=== PATIENT | male | born 1955 | race American Indian/Alaskan Native ===

== ENCOUNTER 2018-01-15 08:06 | Inpatient (IN) | payer BC ==
--- NOTE | 2018-01-15 08:26 | ED PDOC ---
Arrival/HPI <Willie Mann - Last Filed: 01/15/18 15:10> - General Historian: Patient - History of Present Illness Time/Duration: < week (3 days) Symptom Onset: Gradual Symptom Course: Worsening Quality: Stabbing <Sree Newman - Last Filed: 01/15/18 15:25> - General Chief Complaint: Abdominal Pain Time Seen by Provider: 01/15/18 08:22 - History of Present Illness Narrative History of Present Illness (Text): 01/15/18 08:23 Patient is a 62 year old male with a past medical history of CAD (s/p quad CABG five years ago and stent x3 two years ago), hypertension and diabetes presenting to the emergency with a 3 days history of worsening abdominal pain. Patient is from [place] and just return from a cruise ship this morning. He started to experience RUQ/epigastric abdominal pain 3 days while on the cruise ship. The pain is described as a dull, intense pain - "hit in the stomach with a hammer." It does not radiate. He is not nauseous and has not vomited. He has not experienced any diarrhea or constipation, last BM yesterday. Denies fevers, chills, nausea, vomiting, chest pain, shortness of breath, numbness or tingling. PMH: CAD (s/p quad CABG five years ago and stent x3 two years ago), hypertension and diabetes (Sree Newman) Past Medical History - Provider Review Nursing Documentation Reviewed: Yes - Cardiac Hx Hypertension: Yes Other/Comment: bypass - Endocrine/Metabolic Hx Diabetes Mellitus Type 2: Yes - Psychiatric Hx Substance Use: No - Surgical History Other/Comment: bypass <Sree Newman - Last Filed: 01/15/18 15:25> Family/Social History - Physician Review Nursing Documentation Reviewed: Yes Family/Social History: Unknown Family HX Smoking Status: Never Smoked Hx Alcohol Use: No Hx Substance Use: No <Sree Newman - Last Filed: 01/15/18 15:25> Allergies/Home Meds <Willie Mann - Last Filed: 01/15/18 15:10> <Sree Newman - Last Filed: 01/15/18 15:25> Allergies/Adverse Reactions: Allergies No Known Allergies Allergy (Verified 01/15/18 08:22) Home Medications: Home Meds Medication Instructions Recorded Confirmed Unobtainable 01/15/18 01/15/18 Review of Systems - Physician Review All systems were reviewed & negative as marked: Yes - Review of Systems Constitutional: Normal. absent: Fatigue, Fevers Eyes: Normal. absent: Vision Changes ENT: Normal. absent: Sore Throat, Rhinorrhea Respiratory: Normal. absent: SOB, Cough Cardiovascular: Normal. absent: Chest Pain, Calf Pain, SMITH Gastrointestinal: Abdominal Pain (x3 days worsening), Appetite Changes ( decreased x3 days). absent: Stool Changes, Constipation, Diarrhea, Nausea, Vomiting Genitourinary Male: Normal. absent: Dysuria Musculoskeletal: Normal Skin: Normal. absent: Rash Neurological: Normal. absent: Headache, Dizziness Endocrine: Normal Hemo/Lymphatic: Normal Psychiatric: Normal. absent: Anxiety <Sree Newman - Last Filed: 01/15/18 15:25> Physical Exam Vital Signs Reviewed: Yes Temperature: Afebrile Blood Pressure: Hypertensive Pulse: Regular Respiratory Rate: Normal Appearance: Positive for: Non-Toxic, Uncomfortable Pain Distress: Moderate Mental Status: Positive for: Alert and Oriented X 3 - Systems Exam Head: Present: Atraumatic, Normocephalic Extroacular Muscles: Present: EOMI Conjunctiva: Present: Normal Mouth: Present: Dry Nose (External): Present: Atraumatic Nose (Internal): Present: No Active Bleeding Neck: Present: Normal Range of Motion Respiratory/Chest: Present: Clear to Auscultation, Good Air Exchange. No: Respiratory Distress, Accessory Muscle Use Cardiovascular: Present: Regular Rate and Rhythm, Normal S1, S2. No: Murmurs Abdomen: Present: Tenderness (RUQ>epigastric), Scars (sternotomy scar). No: Distention, Peritoneal Signs, Rebound, Guarding, McBurney's Point Tender, Rovsing's Sign Present Upper Extremity: Present: Normal Inspection, NORMAL PULSES. No: Cyanosis, Edema Lower Extremity: Present: Normal Inspection, NORMAL PULSES. No: Edema, CALF TENDERNESS Neurological: Present: GCS=15, Speech Normal, Motor Func Grossly Intact Skin: Present: Warm, Dry, Normal Color. No: Rashes Lymphatic: No: Cervical Adenopathy Psychiatric: Present: Alert, Oriented x 3, Normal Insight, Normal Concentration <Sree Newman - Last Filed: 01/15/18 15:25> Vital Signs Temp Pulse Resp BP Pulse Ox 01/15/18 12:59 95 H 207/95 H 01/15/18 12:51 93 H 18 207/95 H 100 01/15/18 12:01 97 H 221/98 H 01/15/18 11:57 99 H 18 221/98 H 100 01/15/18 11:16 95 H 226/98 H 01/15/18 11:07 81 18 226/96 H 98 01/15/18 08:16 98.9 F 90 19 194/87 H 100 Medical Decision Making <Willie Mann - Last Filed: 01/15/18 15:10> Re-evaluation Time: 10:39 Reassessment Condition: Re-examined, Unchanged - Lab Interpretations I have reviewed the lab results: Yes - RAD Interpretation As[employer] Shingle Roofer: Radiologist - EKG Interpretation Interpreted by ED Physician: Yes Type: 12 lead EKG Comparison: No previous EKG avail. <Sree Newman - Last Filed: 01/15/18 15:25> ED Course and Treatment: 01/15/18 10:18 62 year old male presents to the Emergency Department complaining of epigastric and RUQ abdominal pain. In agreement with resident note, which includes further HPI details. Patient was seen and evaluated with resident, came up with plan and treatment together. (Willie Mann) Patient is a 62 year old male with an extensive cardiac history (s/p quadruple bypass and 3 stents afterwards), hypertension and diabetes presenting with epigastric and RUQ abdominal pain x3 days Patient visibly in pain. Abdominal exam - RUQ tenderness>epigastric tenderness. No guarding, rebound or peritoneal signs. Labs, EKG and RUQ US (r/o GB pathology) Morphine 2mg given for pain. Patient is hypertensive, believed to be 2/2 to pain. Will re-check blood pressure once pain is controlled. 01/15/18 10:18 Patient is still in position, stating severe pain. No nausea or vomiting. US pending radiologist report. Leukocytosis 14.7 Lipase 81 CMP unremarkable. Patient still hypertensive. Need to control pain. Will give Morphine 4mg 01/15/18 10:31 Abd US shows increased echogenicity of liver may reflect hepatic steatosis but other etiologies can be excluded. NO cholelithiasis or biliary dilatation. Patient's pain has improved but is still a 4-5 out of 10. Will get abdominal/ pelvic CT w/IV contrast. Patient is more hypertensive at 214/107 - will give Hydralazine 10mg and re- assess 01/15/18 12:20 Patient is still experiencing severe abdominal pain. He is tachy at 102bpm and hypertensive at 221/98. Patient given Morphine 4mg IV for pain and Labetolol 20mg IV for hypertension. 01/15/18 13:14 Patient has been in consistent abdominal pain with morphine only providing minimal relief. CT results show fatty infiltration of liver and enlarged GB but is otherwise unremarkable. Will give Viscous Lidocaine and Maalox. Called and discussed case with Dr. Boucher. Dr. Boucher has accepted patient on to his service and will admit for hypertensive urgency and intractable abdominal pain. Dr. Boucher has requested consults for Dr. Borden (GI), Dr. Sosa (Cardio) and an ICU evaluation. Spoke with Dr. Sosa - requested Nitro drip Will admit patient to ICU for hypertensive urgency. (TrentSree) - Lab Interpretations Lab Results: 01/15/18 09:00 01/15/18 10:00 Lab Results 01/15/18 10:00: Sodium 144, Potassium 4.3, Chloride 107, Carbon Dioxide 26, Anion Gap 15, BUN 12, Creatinine 1.1, Est GFR ( Amer) > 60, Est GFR (Non- Af Amer) > 60, Random Glucose 217 H, Calcium 10.6 H, Magnesium 1.9, Total Bilirubin 0.7, AST 26, ALT 38, Alkaline Phosphatase 108, Troponin I 0.05, Total Protein 8.5 H, Albumin 4.4, Globulin 4.0, Albumin/Globulin Ratio 1.1, Lipase 81 01/15/18 09:00: WBC 14.7 H, RBC 5.44, Hgb 16.5, Hct 47.6, MCV 87.5, MCH 30.3, MCHC 34.7, RDW 13.6, Plt Count 324, MPV 12.7 H, Gran % 73.2 H, Lymph % (Auto) 16.6 L, [place] % (Auto) 9.8 H, Eos % (Auto) 0.2 L, Baso % (Auto) 0.2, Gran # 10.79 H, Lymph # (Auto) 2.5, [place] # (Auto) 1.4 H, Eos # (Auto) 0.0, Baso # (Auto ) 0.03 - RAD Interpretation Narrative RAD Interpretations (Text): 01/15/18 10:36 Abd US: Examination is technically limited due to patient body habitus. Mild hepatomegaly. Diffuse increased echogenicity in the liver may reflect hepatic steatosis however parenchymal infectious/ inflammatory etiologies cannot be entirely excluded. Clinical and laboratory correlation is advised. No cholelithiasis or biliary dilatation. Abd/pel CT w/o: Severe fatty infiltration of the liver. Distended gallbladder. Enlarged prostate and mild uniform mural thickening of the bladder (Sree Newman) Radiology Orders: 01/15/18 08:47 GALL BLADDER [US] Stat 01/15/18 10:30 ABD & PELVIS IV CONTRAST ONLY [CT] Stat - EKG Interpretation EKG Interpretation (Text): 01/15/18 10:40 EKG - NSR @94bpm, left axis deviation, left atrial enlargement, Q waves in V1 and V2, no acute ST segment elevations or depressions. (Sree Newman) - Medication Orders Current Medication Orders: Nitroglycerin/Dextrose (Nitroglycerin 50 Mg/250 Ml D5w) 50 mg in 250 mls @ 6 mls/hr IV .Q24H PRN; Protocol; 20 MCG/MIN PRN Reason: hypertension SBP>160 Last Admin: 01/15/18 14:49 Dose: 20 mcg/min, 6 mls/hr eMAR Start Stop Document 01/15/18 14:49 [facility] (Rec: 01/15/18 14:54 [facility] [id number]) Intravenous Solution Start Date 01/15/18 Start Time 14:50 MAR Pulse and Blood Pressure Document 01/15/18 14:49 [facility] (Rec: 01/15/18 14:54 [facility] [id number]) Pulse Pulse Rate (60-90) 113 Blood Pressure Blood Pressure (100/60-150/90) 156/87 Titration Intervention Document 01/15/18 14:49 [facility] (Rec: 01/15/18 14:54 [facility] [id number]) Titration Intake Waste Amount 0 Container Volume 250 Titration Dosing Titration Dose 20 IV Rate 6 Intake/Decrease Started Pantoprazole Sodium (Protonix 40mg Ivpb) 40 mg in 100 mls @ 200 mls/hr IVPB 0600 AUGUST Last Admin: 01/15/18 15:00 Dose: 200 mls/hr eMAR Start Stop Document 01/15/18 15:00 [facility] [place] (Rec: 01/15/18 15:01 [facility] [place] [id number]) Intravenous Solution Start Date 01/15/18 Start Time 15:00 End Date 01/15/18 End time 15:30 Total Infusion Time 30 Lactated Ringer's (Lactated Ringer's) 1,000 mls @ 150 mls/hr IV .Q6H40M AUGUST Discontinued Medications Al Hydrox/Mg Hydrox/Simethicone (Maalox Plus 30 Ml) 30 ml PO STAT STA Stop: 01/15/18 13:00 Last Admin: 01/15/18 13:55 Dose: 30 ml Hydralazine HCl (Apresoline) 10 mg IVP STAT ONE Stop: 01/15/18 10:46 Last Admin: 01/15/18 11:16 Dose: 10 mg IVP Administration Document 01/15/18 11:16 [facility] [place] (Rec: 01/15/18 11:[address]) Charges for Administration # of IVP Administrations 1 MAR Pulse and Blood Pressure Document 01/15/18 11:16 [facility] [place] (Rec: 01/15/18 11:17 [place] [id number]) Pulse Pulse Rate (60-90) 95 Blood Pressure Blood Pressure (100/60-150/90) 226/98 Hydralazine HCl (Apresoline) 10 mg IVP STAT ONE Stop: 01/15/18 13:01 Last Admin: 01/15/18 12:59 Dose: 10 mg IVP Administration Document 01/15/18 12:59 [facility] [place] (Rec: 01/15/18 12:[address]) Charges for Administration # of IVP Administrations 1 MAR Pulse and Blood Pressure Document 01/15/18 12:59 [facility] [place] (Rec: 01/15/18 12:59 [place] [id number]) Pulse Pulse Rate (60-90) 95 Blood Pressure Blood Pressure (100/60-150/90) 207/95 Labetalol HCl (Trandate) 20 mg IV STAT STA Stop: 01/15/18 11:58 Last Admin: 01/15/18 12:01 Dose: 20 mg eMAR Start Stop Document 01/15/18 12:01 [facility] (Rec: 01/15/18 12:02 [facility] [id number]) Intravenous Solution Start Date 01/15/18 Start Time 12:02 End Date 01/15/18 End time 12:05 Total Infusion Time 3 MAR Pulse and Blood Pressure Document 01/15/18 12:01 [facility] (Rec: 01/15/18 12:02 [facility] [id number]) Pulse Pulse Rate (60-90) 97 Blood Pressure Blood Pressure (100/60-150/90) 221/98 Morphine Sulfate (Morphine) 2 mg IVP STAT STA Stop: 01/15/18 08:52 Last Admin: 01/15/18 09:08 Dose: 2 mg MAR Pain Assessment Document 01/15/18 09:08 [facility] (Rec: 01/15/18 09:09 [facility] [id number]) Pain Reassessment Is this a pain reassessment? No Sleep Is patient sleeping during reassessment? No Presence of Pain Presence of Pain Yes Pain Scale Used Pain Scale Used Numeric Location Pain Location Body Site Groin Description Description Constant Intensity of Pain at present 8 IVP Administration Document 01/15/18 09:08 [facility] (Rec: 01/15/18 09:09 [facility] [id number]) Charges for Administration # of IVP Administrations 1 Morphine Sulfate (Morphine) 4 mg IVP STAT STA Stop: 01/15/18 10:05 Last Admin: 01/15/18 10:16 Dose: 4 mg MAR Pain Assessment Document 01/15/18 10:16 [facility] (Rec: 01/15/18 10:17 [facility] [id number]) Pain Reassessment Is this a pain reassessment? No Sleep Is patient sleeping during reassessment? No Presence of Pain Presence of Pain Yes Pain Scale Used Pain Scale Used Numeric Location Pain Location Body Site Abdomen Description Intensity of Pain at present 8 IVP Administration Document 01/15/18 10:16 [facility] (Rec: 01/15/18 10:17 [facility] [id number]) Charges for Administration # of IVP Administrations 1 Morphine Sulfate (Morphine) 4 mg IVP STAT STA Stop: 01/15/18 11:59 Last Admin: 01/15/18 12:05 Dose: 4 mg MAR Pain Assessment Document 01/15/18 12:05 [facility] (Rec: 01/15/18 12:06 [facility] [id number]) Pain Reassessment Is this a pain reassessment? Yes Sleep Is patient sleeping during reassessment? No Presence of Pain Presence of Pain Yes Pain Scale Used Pain Scale Used Numeric Location Pain Location Body Site Abdomen Description Description Constant Intensity of Pain at present 8 IVP Administration Document 01/15/18 12:05 [facility] (Rec: 01/15/18 12:[address] [facility] [address]) Charges for Administration # of IVP Administrations 1 Morphine Sulfate (Morphine) 4 mg IVP STAT STA Stop: 01/15/18 13:59 Last Admin: 01/15/18 14:55 Dose: 4 mg MAR Pain Assessment Document 01/15/18 14:55 [facility] (Rec: 01/15/18 14:[address]) Pain Reassessment Is this a pain reassessment? Yes Sleep Is patient sleeping during reassessment? No Presence of Pain Presence of Pain Yes Pain Scale Used Pain Scale Used Numeric Location Pain Location Body Site Abdomen Description Intensity of Pain at present 8 Acceptable Level of Pain 1 IVP Administration Document 01/15/18 14:55 [facility] (Rec: 01/15/18 14:[address] [facility] [address]) Charges for Administration # of IVP Administrations 1 Nitroglycerin (Nitrostat Sl Tab) 0.4 mg SL STAT STA Stop: 01/15/18 14:35 Last Admin: 01/15/18 14:46 Dose: 0.4 mg Pantoprazole Sodium (Protonix Inj) 80 mg IVP STAT STA Stop: 01/15/18 14:33 Last Admin: 01/15/18 14:46 Dose: 80 mg IVP Administration Document 01/15/18 14:46 J[facility] (Rec: 01/15/18 14:46 JRA [id number]) Charges for Administration # of IVP Administrations 1 - PA / CELLAR PACKER / Resident Statement MD/DO has reviewed & agrees with the documentation as recorded. MD/DO has examined the patient and agrees with the treatment plan. - Scribe Statement The provider has reviewed the documentation as recorded by the Scribe <Willie Mann - Last Filed: 01/15/18 15:10> <Sree Newman - Last Filed: 01/15/18 15:25> - Scribe Statement Joey Barkley. All medical record entries made by the Scribe were at my direction and personally dictated by me. I have reviewed the chart and agree that the record accurately reflects my personal performance of the history, physical exam, medical decision making, and the department course for this patient. I have also personally directed, reviewed, and agree with the discharge instructions and disposition. (Willie Mann) Disposition/Present on Arrival <Willie Mann - Last Filed: 01/15/18 15:10> - Present on Arrival Any Indicators Present on Arrival: No History of DVT/PE: No History of Uncontrolled Diabetes: No Urinary Catheter: No History of Decub. Ulcer: No History Surgical Site Infection Following: None - Disposition Have Diagnosis and Disposition been Completed?: Yes Disposition Time: 13:37 Patient Plan: Admission, ICU <Sree Newman - Last Filed: 01/15/18 15:25> - Disposition Diagnosis: Hypertensive urgency, Intractable abdominal pain Disposition: HOSPITALIZED Patient Problems: Current Active Problems Problem Status Onset Hypertensive urgency Acute Intractable abdominal pain Acute Condition: SERIOUS
[2018-01-15] MEDS ORDERED: Morphine 2 mg/ml ISec IVP STA (08:51)
[2018-01-15 09:26] LABS: BASO # 0.03 K/mm3 (0.0-2.0); BASO % 0.2 % (0.0-3.0); EOS % 0.2 % (1.5-5.0); GRAN # 10.79 (1.4-6.5); GRAN % 73.2 % (50.0-68.0); HEMOGLOBIN 16.5 g/dL (14.0-18.0); LYMPH # 2.5 (1.2-3.4); LYMPH % 16.6 % (22.0-35.0); MEAN CELL VOLUME 87.5 fl (80.0-105.0); MEAN CORPUSCULAR HEMOGLOBIN 30.3 pg (25.0-35.0); MEAN CORPUSCULAR HGB CONC 34.7 g/dl (31.0-37.0); MEAN PLATELET VOLUME 12.7 fl (7.0-11.0); MONO # 1.4 (0.1-0.6); MONO % 9.8 % (1.0-6.0); RBC 5.44 10^6/uL (3.5-6.1); RED CELL DISTRIBUTION WIDTH 13.6 % (11.5-14.5); WHITE BLOOD COUNT 14.7 10^3/ul (4.5-11.0)
[2018-01-15] MEDS ORDERED: Morphine 4 mg/ml ISec IVP STA ×3 (10:04→13:58)
--- NOTE | 2018-01-15 10:10 | US ---
Date of service: 01/15/2018 HISTORY: RUQ pain COMPARISON: None. TECHNIQUE: Grayscale imaging was performed. FINDINGS: LIVER: Measures 22.9 cm in length. There is diffuse increased echogenicity of the liver parenchyma. No mass. No intrahepatic bile duct dilatation. GALLBLADDER: There are no gallstones, wall thickening or pericholecystic fluid. The sonographic Guardado's sign is negative. COMMON BILE DUCT: Measures 4.7 mm. No stones. No dilatation. PANCREAS: Not visualized. No mass. No ductal dilatation. RIGHT KIDNEY: Measures 13.0 cm in length. Normal echogenicity. No calculus, mass, or hydronephrosis. AORTA: No aneurysmal dilatation. IVC: Unremarkable. OTHER FINDINGS: None . IMPRESSION: Examination is technically limited due to patient body habitus. Mild hepatomegaly. Diffuse increased echogenicity in the liver may reflect hepatic steatosis however parenchymal infectious/ inflammatory etiologies cannot be entirely excluded. Clinical and laboratory correlation is advised. No cholelithiasis or biliary dilatation.
[2018-01-15 10:27] LABS: ALB/GLOB RATIO 1.1 (1.1-1.8); ALBUMIN 4.4 g/dL (3.0-4.8); ALT/SGPT 38 U/L (7-56); AST/SGOT 26 U/L (17-59); BLOOD UREA NITROGEN 12 mg/dL (7-21); CALCIUM 10.6 mg/dL (8.4-10.5); GFR NON-AFRICAN AMERICAN > 60; LIPASE 81 U/L (23-300)
[2018-01-15 10:39] LABS: TROPONIN I 0.05 ng/mL
[2018-01-15] MEDS ORDERED: Labetalol 5 mg/ml Inj 20ML IV STA (11:57)
--- NOTE | 2018-01-15 12:32 | CT ---
Date of service: 01/15/2018 PROCEDURE: CT Abdomen and Pelvis with contrast HISTORY: RUQ/Epigastric pain COMPARISON: None. TECHNIQUE: Contrast dose: 150 cc of Omni 350 Radiation dose: Total exam DLP = 1144 mGy-cm. This CT exam was performed using one or more of the following dose reduction techniques: Automated exposure control, adjustment of the mA and/or kV according to patient size, and/or use of iterative reconstruction technique. FINDINGS: LOWER THORAX: Unremarkable. LIVER: Severe fatty infiltration of the liver GALLBLADDER AND BILE DUCTS: Distended gallbladder PANCREAS: Unremarkable. No gross lesion or ductal dilatation. SPLEEN: Unremarkable. ADRENALS: Unremarkable. No mass. KIDNEYS AND URETERS: Unremarkable. No hydronephrosis. No solid mass. VASCULATURE: Unremarkable. No aortic aneurysm. BOWEL: Unremarkable. No obstruction. No gross mural thickening. APPENDIX: Normal appendix. PERITONEUM: Unremarkable. No free fluid. No free air. LYMPH NODES: Unremarkable. No enlarged lymph nodes. BLADDER: Mild mural thickening of the bladder REPRODUCTIVE: The prostate measures 65 x 76 mm BONES: No acute fracture. OTHER FINDINGS: None. IMPRESSION: Severe fatty infiltration of the liver. Distended gallbladder. Enlarged prostate and mild uniform mural thickening of the bladder
[2018-01-15] MEDS ORDERED: Alum-Mag Hydrox-Simethicone Susp (30 mL) PO STA (12:59)
[2018-01-15] MEDS ORDERED: Pantoprazole 40mg/100mL NS 40 MG/100 ML BAG IVPB SCH (14:45)
--- NOTE | 2018-01-15 14:46 | CP.PCM.CON ---
History of Present Illness - History of Present Illness History of Present Illness: 62 M with extensive cardiac hx including CAD (s/p quad CABG five years ago and stent x3 two years ago), hypertension and diabetes presenting to the ED with abdominal pain x 3 days. He just came off a cruise ship that went [facility] indulged in food from the cruise ship including meat and seafood. Also consumed alcohol which he usually does not. Three day ago he began to have spastic RUQ pain. This got worse on the second day of pain to the point where he had to stay with the cruise ship medical team and receive pain meds which did not help. Today, the pain is worse. No fevers, no n/v, no diarrhea. He believes pain is worse with food but is not sure. Last BM yesterday. + flatus. In the ED, he was afebrile however hypertensive 210/205 HR 88 99% RA RR 16. Labs were unremarkable except for a leukocytosis of 14. LFts and Pancr enzymes also normal. normal bili. CTA abd did not show ischemic bowel or clot. GB US did not show stones in GB. CT did comment on enlarged GB. PMHX: As above Psurg hx: CABG Allx: NKDA Social: Minimal etoh, no smoking. Lives in [place] Fam Hx: HTN ROS: as above Past Patient History - Past Social History Smoking Status: Never Smoked - CARDIAC Hx Hypertension: Yes Other/Comment: bypass - ENDOCRINE/METABOLIC Hx Diabetes Mellitus Type 2: Yes - PSYCHIATRIC Hx Substance Use: No - SURGICAL HISTORY Other/Comment: bypass Meds Allergies/Adverse Reactions: Allergies Allergy/AdvReac Type Severity Reaction Status Date / Time No Known Allergies Allergy Verified 01/15/18 08:22 - Medications Medications: Current Medications Nitroglycerin/Dextrose (Nitroglycerin 50 Mg/250 Ml D5w) 50 mg in 250 mls @ 6 mls/hr IV .Q24H PRN; Protocol; 20 MCG/MIN PRN Reason: hypertension SBP>160 Pantoprazole Sodium (Protonix 40mg Ivpb) 40 mg in 100 mls @ 200 mls/hr IVPB 0600 AUGUST Physical Exam - Constitutional Appears: In Acute Distress - Head Exam Head Exam: ATRAUMATIC, NORMAL INSPECTION - Eye Exam Eye Exam: EOMI Pupil Exam: NORMAL ACCOMODATION, PERRL - ENT Exam ENT Exam: Mucous Membranes Moist, Normal Exam - Neck Exam Neck exam: Positive for: Normal Inspection - Respiratory Exam Respiratory Exam: Clear to Auscultation Bilateral, NORMAL BREATHING PATTERN - Cardiovascular Exam Cardiovascular Exam: REGULAR RHYTHM - GI/Abdominal Exam GI & Abdominal Exam: Distended, Firm, Normal Bowel Sounds, Tenderness - Extremities Exam Extremities exam: Positive for: normal inspection - Neurological Exam Neurological exam: Alert, CN II-XII Intact, Oriented x3 - Skin Skin Exam: Normal Color, Warm Results - Vital Signs Recent Vital Signs: Last Vital Signs Temp 98.9 F 01/15/18 08:16 Pulse 95 H 01/15/18 12:59 Resp 18 01/15/18 12:51 BP 207/95 H 01/15/18 12:59 Pulse Ox 100 01/15/18 12:51 - Labs Result Diagrams: 01/15/18 09:00 01/15/18 10:00 Assessment & Plan - Assessment and Plan (Free Text) Assessment: 62M with extensive cardiac hx including CAD/CABG and HTN admitted with 3 days of abd pain while on a cruise ship as well as uncontrolled HTN. Etio of abd pain unclear. His pain is suggestive of biliary colic. Imaging does not show stones in GB but does show dilated GB. LFTs, bili and pancr emzymes are normal as well. PUD is possible. GI on board for evaluation. May benefit from HIDA / MRCP / endoscopy. He is not febrile and does not show signs of sepsis. No n/v/diarrhea. Would hold off on abx. I have ordered lactic acid. His BP is very high, he did not take his antihypertensive today. He does not show any signs of end organ damage. Would resume him home PO meds ( is getting list). Cardio on board requesting tridil drip which will require him be monitored in the ICU. HTN mmt as per cardio. Will order tni. Hep SQ DVT ppx PPI GI tx empiric for possible ulcer pain hold any NSAID NPO while awaiting GI Bilal Tiffanie HERMOSILLO Accounts Receivable Supervisor
[2018-01-15] MEDS: Nitroglycerin 50mg in D5W 50 MG/250 ML BOTTLE IV PRN (14:49)
[2018-01-15] MEDS ORDERED: Lactated Ringer's 1,000 ML IV SCH (15:15)
--- NOTE | 2018-01-15 15:33 | CP.PCM.CON ---
<Randy Chan - Last Filed: 01/15/18 15:57> History of Present Illness - History of Present Illness History of Present Illness: GI Fellow PGY4, consult note. Yoshi Devine is a pleasant 62M with history of CABG, gout, HTN, DM, colon cancer presenting with acute abdominal pain. Patient describes pain as progressively worsening for three days. Now, pain is severe, constant and located in the RUQ abdomen. He says food makes the pain worse. It does not radiate. Patient denies history of gallstones, stomach ulcers. He states he has been taking his medication as Rx. He does not take an antacid at home. He has not been using NSAIDs recently. PMHx - Colon CA 5 years ago. PSHx - Colon resection with anastamosis, CABG FMHx - noncontributory. SocHx - Occasional EtOH. denies smoking. recently on a cruise. lives in [place]. 12pt ROS negative except for above. Past Patient History - Past Social History Smoking Status: Never Smoked - CARDIAC Hx Hypertension: Yes Other/Comment: bypass - ENDOCRINE/METABOLIC Hx Diabetes Mellitus Type 2: Yes - PSYCHIATRIC Hx Substance Use: No - SURGICAL HISTORY Other/Comment: bypass Meds Allergies/Adverse Reactions: Allergies Allergy/AdvReac Type Severity Reaction Status Date / Time lidocaine AdvReac COUGH Verified 01/15/18 18:13 - Medications Medications: Current Medications Nitroglycerin/Dextrose (Nitroglycerin 50 Mg/250 Ml D5w) 50 mg in 250 mls @ 6 mls/hr IV .Q24H PRN; Protocol; 20 MCG/MIN PRN Reason: hypertension SBP>160 Last Admin: 01/15/18 14:49 Dose: 20 mcg/min, 6 mls/hr Pantoprazole Sodium (Protonix 40mg Ivpb) 40 mg in 100 mls @ 200 mls/hr IVPB 0600 AUGUST Last Admin: 01/15/18 15:00 Dose: 200 mls/hr Lactated Ringer's (Lactated Ringer's) 1,000 mls @ 150 mls/hr IV .Q6H40M [facility] Physical Exam - Constitutional Appears: In Acute Distress - Head Exam Head Exam: NORMAL INSPECTION - Eye Exam Eye Exam: Normal appearance - ENT Exam ENT Exam: Mucous Membranes Dry - Respiratory Exam Respiratory Exam: Clear to Auscultation Bilateral, NORMAL BREATHING PATTERN - Cardiovascular Exam Cardiovascular Exam: REGULAR RHYTHM, +S1, +S2 - GI/Abdominal Exam GI & Abdominal Exam: Normal Bowel Sounds, Organomegaly, Soft, Tenderness Additional comments: RUQ tenderness. [place] sign indeterminate. - Rectal Exam Rectal Exam: Deferred - Extremities Exam Extremities exam: Positive for: normal inspection - Neurological Exam Neurological exam: Alert, CN II-XII Intact, Oriented x3 - Psychiatric Exam Psychiatric exam: Normal Affect, Normal Mood - Skin Skin Exam: Dry, Normal Color Results - Vital Signs Recent Vital Signs: Last Vital Signs Temp 98.9 F 01/15/18 08:16 Pulse 95 H 01/15/18 12:59 Resp 18 01/15/18 12:51 BP 207/95 H 01/15/18 12:59 Pulse Ox 100 01/15/18 12:51 - Labs Result Diagrams: 01/15/18 09:00 01/15/18 10:00 Labs: Laboratory Results - last 24 hr 01/15/18 01/15/18 15:07 15:07 Lactic Acid 2.4 H Amylase 94 Assessment & Plan - Assessment and Plan (Free Text) Assessment: 62M presenting with acute abdominal pain consistent with cholecystitis #RUQ abdominal pain #CAD s/p CABG #HTN urgency #DM #Gout #Hx of Colon CA PLAN: -Concerning for acute cholecystitis. CT scan show fat stranding around the GB. No obvious stone, but these can be missed on imaging. If this is acalculous cholecystitis, this is a worse prognosis. -Recommend stat surgical evaluation. -Continue PPI drip for now. -Agree with ICU placement. -Supportive care per medicine/ICU team. Monitor IV fluids carefully and volume overload in cardiac patient. -No endoscopic procedures planned. - Date & Time Date: 01/15/18 Time: 15:36 <Marina Eckert - Last Filed: 01/15/18 19:06> Meds - Medications Medications: Current Medications Hydromorphone HCl (Dilaudid) 1 mg IVP Q4H PRN PRN Reason: Pain, severe (8-10) Last Admin: 01/15/18 18:10 Dose: 1 mg Hydromorphone HCl (Dilaudid) 0.5 mg IVP Q3H PRN PRN Reason: Pain, moderate (4-7) Nitroglycerin/Dextrose (Nitroglycerin 50 Mg/250 Ml D5w) 50 mg in 250 mls @ 6 mls/hr IV .Q24H PRN; Protocol; 20 MCG/MIN PRN Reason: hypertension SBP>160 Last Titration: 01/15/18 18:41 Dose: 10 mcg/min, 3 mls/hr Pantoprazole Sodium (Protonix 40mg Ivpb) 40 mg in 100 mls @ 200 mls/hr IVPB 0600 [facility] Last Admin: 01/15/18 15:00 Dose: 200 mls/hr Lactated Ringer's (Lactated Ringer's) 1,000 mls @ 150 mls/hr IV .Q6H40M [facility] Last Admin: 01/15/18 15:38 Dose: 150 mls/hr Metronidazole (Flagyl) 500 mg in 100 mls @ 100 mls/hr IVPB Q8 AUGUST PRN Reason: Protocol Last Admin: 01/15/18 18:06 Dose: 100 mls/hr Levofloxacin/Dextrose (Levaquin 500mg) 500 mg in 100 mls @ 100 mls/hr IVPB DAILY AUGUST PRN Reason: Protocol Last Admin: 01/15/18 18:43 Dose: 100 mls/hr Insulin Human Regular (Humulin R Low) 0 units SC Q6 AUGUST PRN Reason: Protocol Results - Vital Signs Recent Vital Signs: Last Vital Signs Temp 98.9 F 01/15/18 18:14 Pulse 117 H 01/15/18 18:14 Resp 18 01/15/18 18:14 BP 185/111 H 01/15/18 18:14 Pulse Ox 98 01/15/18 16:37 - Labs Result Diagrams: 01/15/18 09:00 01/15/18 10:00 Labs: Laboratory Results - last 24 hr 01/15/18 01/15/18 01/15/18 15:07 15:07 17:24 POC Glucose (mg/dL) 193 H Lactic Acid 2.4 H Troponin I 0.06 Amylase 94 Attending/Attestation - Attestation I have personally seen and examined this patient.: Yes I have fully participated in the care of the patient.: Yes I have reviewed all pertinent clinical information: Yes Notes (Text): 01/15/18 18:59 Patient seen earlier on Gi rounds. This is a 62 yr old M with histor of CAD, CABG, cardiac stents, colon CA, presenting with acute RUQ abdominal pain that worsened after eating fatty foods in past 4 days with nausea and mild leukocytosis. Ct reviewed that shows thickened GB with fat stranding. 30% of the times stones can be missed on CT scan. Can also be acalculous cholecystitis. Also with HTN urgency on nitro drip. Surgical plan to be followed as there is no GI issue. NPO. Agree with antibiotics. Can give PPI daily. Discussed with surgical service and Dr Boucher 01/15/18 19:06
[2018-01-15 15:37] LABS: TROPONIN I 0.06 ng/mL
--- NOTE | 2018-01-15 15:47 | CON ---
Copied To: Jamil Sosa MD Attending MD: Jamil Sosa MD DATE: 01/15/2018 CARDIOLOGY CONSULTATION HISTORY: The patient is a 62-year-old male who came off the cruise ship with 3 days of abdominal pain. His symptoms are described as crampy and has been consistent and severe. PAST MEDICAL HISTORY: Includes a history of hypertension, diabetes mellitus, hypercholesterolemia, obesity, and is status post coronary artery bypass surgery 5 years ago as well as PTCA and stent 2 years ago. He states he has had no angina. His symptoms are not like his anginal symptoms. The patient's past medical history is free of history of peptic ulcer disease. SOCIAL HISTORY: The patient does not smoke. 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 REVIEW OF SYSTEMS: A 14-point review of systems is reviewed in detail. Other than the above symptoms, no other symptoms are noted. PHYSICAL EXAMINATION: VITAL SIGNS: Blood pressure is 237/98, heart rates in the 90s. NECK: Negative JVD. LUNGS: Without rales. HEART: S1, S2. ABDOMEN: Minimal bowel sounds are heard with mild guarding. EXTREMITIES: Without edema. LABORATORY DATA: Shows an EKG with left anterior hemiblock with no acute changes. The troponin is 0.05. Glucose 217. Hemoglobin is 16.5 with white count of 14.7. CT scan of the abdomen reveals no obstruction reported. Ultrasound of the gallbladder reveals no cholelithiasis, no biliary dilatation. IMPRESSION: 1. Three days of abdominal pain. 2. CT scan and gallbladder ultrasound are unrevealing. 3. Accelerated hypertension. 4. Diabetes mellitus. 5. Hypertension. 6. History of coronary artery bypass surgery. 7. History of percutaneous transluminal coronary angioplasty in the past. 8. Obesity. Given these findings, we will start the patient on IV . Sublingual nitroglycerin was given. A trial of IV Protonix. GI will need to be called. The patient should go to the ICU for better blood pressure control. We will need to consider whether the patient needs surgical evaluation. Jamil Sosa MD
--- NOTE | 2018-01-15 15:56 | CP.PCM.CON ---
History of Present Illness - History of Present Illness History of Present Illness: General Surgery consult note for Dr. Luis CC: abdominal pain Patient seen and examined at bedside in the ER. Patient is a 62M with PMH including colon CA, DM, CAD s/p stents and CABG currently on brilinta, HTN, who presented to the ED with 2 days of worsening abdominal pain. patient states his pain is diffuse, waxes and wanes but never disappears, is stabbing in nature, and associated with nausea today. Patient states that his last BM was yesterday and it was small but normal color and consistency. Patient has been on a cruiseship eating a large amount of fatty foods and was drinking a large amount of rum on night the symptoms started. Patient denies any prior episodes of similar symptoms. Patient denies vomiting, hematochezia, melena, fevers, chills , back pain, chest pain, dysuria, hematuria, or any other symptoms. PMH: colon ca, CAD on brilinta, HTN, HLD, DM PSH: laparoscopic colon resection, CABG, coronary stents, knee arthroscopy ALL: lidocaine (hiccups) Social: occasional ETOH, non-smoker, no illicit drugs Review of Systems - Review of Systems All systems: reviewed and no additional remarkable complaints except (as per HPI ) Past Patient History - Past Medical History & Family History Past Medical History?: Yes - Past Social History Smoking Status: Never Smoked Alcohol: None Drugs: Denies - CARDIAC Hx Cardiac Disorders: Yes Hx Hypertension: Yes Other/Comment: CAD s/p quadruple CABG, subsequent coronary stents - ENDOCRINE/METABOLIC Hx Diabetes Mellitus Type 2: Yes - GASTROINTESTINAL Hx Gastrointestinal Disorders: Yes (colon cancer 2015 s/p resection) - PSYCHIATRIC Hx Substance Use: No - SURGICAL HISTORY Hx Coronary Artery Bypass Graft: Yes Hx Orthopedic Surgery: Yes (knee arthrosctopy) Other/Comment: coronary stents, partial colon resection Meds Allergies/Adverse Reactions: Allergies Allergy/AdvReac Type Severity Reaction Status Date / Time lidocaine AdvReac COUGH Verified 01/15/18 16:39 - Medications Medications: Current Medications Nitroglycerin/Dextrose (Nitroglycerin 50 Mg/250 Ml D5w) 50 mg in 250 mls @ 6 mls/hr IV .Q24H PRN; Protocol; 20 MCG/MIN PRN Reason: hypertension SBP>160 Last Admin: 01/15/18 14:49 Dose: 20 mcg/min, 6 mls/hr Pantoprazole Sodium (Protonix 40mg Ivpb) 40 mg in 100 mls @ 200 mls/hr IVPB 0600 [facility] Last Admin: 01/15/18 15:00 Dose: 200 mls/hr Lactated Ringer's (Lactated Ringer's) 1,000 mls @ 150 mls/hr IV .Q6H40M [facility] Last Admin: 01/15/18 15:38 Dose: 150 mls/hr Physical Exam - Constitutional Appears: Well, Non-toxic - Head Exam Head Exam: ATRAUMATIC, NORMOCEPHALIC - Eye Exam Eye Exam: Normal appearance. absent: Conjunctival injection, Scleral icterus - ENT Exam ENT Exam: Mucous Membranes Moist, Normal Oropharynx - Respiratory Exam Respiratory Exam: NORMAL BREATHING PATTERN. absent: Accessory Muscle Use, Respiratory Distress - Cardiovascular Exam Cardiovascular Exam: Tachycardia, REGULAR RHYTHM - GI/Abdominal Exam GI & Abdominal Exam: Soft, Tenderness (moderate diffuse tenderness, severe tenderness in RUQ/epigastrium with positive gupta's sign). absent: Distended, Rigid - Extremities Exam Extremities exam: Positive for: pedal pulses present. Negative for: calf tenderness, pedal edema - Neurological Exam Neurological exam: Alert, Oriented x3 - Psychiatric Exam Psychiatric exam: Anxious, Normal Affect - Skin Skin Exam: Dry, Normal Color, Warm Results - Vital Signs Recent Vital Signs: Last Vital Signs Temp 98.9 F 01/15/18 08:16 Pulse 112 H 01/15/18 14:30 Resp 18 01/15/18 14:30 BP 156/87 H 01/15/18 14:30 Pulse Ox 98 01/15/18 14:30 - Labs Result Diagrams: 01/15/18 09:00 01/15/18 10:00 Labs: Laboratory Results - last 24 hr 01/15/18 01/15/18 15:07 15:07 Lactic Acid 2.4 H Troponin I 0.06 Amylase 94 - Imaging and Cardiology CT scan - abdomen Status: Image reviewed by me, Report reviewed by me US - abdomen Status: Image reviewed by me, Report reviewed by me Assessment & Plan - Assessment and Plan (Free Text) Assessment: 62M with abdominal pain, possible acalculous cholecystitis Plan: Continue to trend CBC/CMP F/U GI recs F/U cardiology recs Serial exams NPO IVF IV antibiotics PRN pain medication Patient is currently on nitro drip in the ICU for severe hypertension--patient must have his cardiac state stabilized prior to any surgical intervention If patient clinically deteriorates or fails to improve, may consider IR percutaneous drainage of the gallbladder with a cholecystostomy tube Discussed with Dr. Luis, further recs per him Shyann Willoughby, PGY2
[2018-01-15] MEDS: metroNIDAZOLE IV 500 mg/100 ml 500 MG/100 ML BAG IVPB SCH ×2 (18:06→23:00)
[2018-01-15] MEDS: HYDROmorphone 1 mg/ml ISec IVP PRN (18:10)
[2018-01-15] MEDS: levoFLOXacin 500 mg in D5W 500 MG/100 ML BAG IVPB SCH (18:43)
[2018-01-15 18:48] VITALS: BMI 37.3
[2018-01-15] MEDS ORDERED: Pneumococcal 23-Valent Vaccine IM ONE (18:49)
--- NOTE | 2018-01-15 21:24 | CARD ---
APPROVED REPORT Date of service: 01/15/2018 EKG Measurement Heart [id number] <Conclusion> Normal sinus rhythm Possible Left atrial enlargement Left axis deviation Left ventricular hypertrophy Cannot rule out Septal infarct, age undetermined Abnormal ECG
[2018-01-15] MEDS ORDERED: Insulin Reg-LOW-Coverage SC SCH (22:00)
[2018-01-15] MEDS: HYDROmorphone 0.5 mg/0.5 ml ISec IVP PRN (23:18)
[2018-01-16] MEDS: HYDROmorphone 0.5 mg/0.5 ml ISec IVP PRN ×3 (04:17→18:44)
[2018-01-16 06:26] LABS: INR 1.31; PROTHROMBIN TIME 15.2 SECONDS (9.4-12.5)
[2018-01-16 06:27] LABS: BASO # 0.03 K/mm3 (0.0-2.0); BASO % 0.1 % (0.0-3.0); GRAN # 19.61 (1.4-6.5); GRAN % 79.4 % (50.0-68.0); HEMOGLOBIN 15.2 g/dL (14.0-18.0); LYMPH # 1.9 (1.2-3.4); LYMPH % 7.7 % (22.0-35.0); MEAN CELL VOLUME 89.1 fl (80.0-105.0); MEAN CORPUSCULAR HEMOGLOBIN 29.7 pg (25.0-35.0); MEAN CORPUSCULAR HGB CONC 33.3 g/dl (31.0-37.0); MEAN PLATELET VOLUME 12.7 fl (7.0-11.0); MONO # 3.2 (0.1-0.6); MONO % 12.8 % (1.0-6.0); RBC 5.12 10^6/uL (3.5-6.1); RED CELL DISTRIBUTION WIDTH 14.1 % (11.5-14.5); WHITE BLOOD COUNT 24.7 10^3/ul (4.5-11.0)
[2018-01-16] MEDS ORDERED: Lidocaine PF 2% (5 ml) Inj (For Cardiac Arrhy) ONE (07:10)
[2018-01-16] MEDS ORDERED: Phenylephrine 10 mg/ml Inj ONE (07:10)
[2018-01-16] MEDS ORDERED: Iohexol 350mgl/ml 50 ML ONE (07:11)
[2018-01-16] MEDS ORDERED: Nitroglycerin 50mg in D5W 0 MG/0 ML BOTTLE IV ONE (07:11)
[2018-01-16] MEDS ORDERED: Iodixanol 320 MG/ML 200 ML BOTTLE IV ONE (07:11)
[2018-01-16] MEDS ORDERED: Iodixanol 320 MG/ML 100 ML BOTTLE IV ONE (07:11)
[2018-01-16 07:14] LABS: ALB/GLOB RATIO 1.1 (1.1-1.8); ALT/SGPT 28 U/L (7-56); AST/SGOT 25 U/L (17-59); BLOOD UREA NITROGEN 16 mg/dL (7-21); GFR NON-AFRICAN AMERICAN 51
[2018-01-16] MEDS ORDERED: Alum-Mag Hydrox-Simethicone Susp (30 mL) PO ONE (07:36)
[2018-01-16] MEDS ORDERED: Midazolam 2 MG/2 ML VIAL ONE ×2 (07:52→08:15)
[2018-01-16] MEDS ORDERED: Nitroglycerin 50mg in D5W 50 MG/250 ML BOTTLE IV ONE (08:14)
--- NOTE | 2018-01-16 08:46 | HP ---
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 He is a 62-year-old man who presents coming off the cruise ship. He is from [place]. He started to have right upper quadrant epigastric pain 3 days ago on the cruise ship. It was dull intense pain into stomach like a hammer, very severe pain. No nausea or vomiting. PAST MEDICAL HISTORY: He has a past medical history of CAD status post quad CABG 5 years ago and about three stents 2 years ago, hypertension, diabetes, severe abdominal pain, blood pressure issues. He has had bypass surgery, type 2 diabetes. FAMILY HISTORY: Hypertension in the family. SOCIAL HISTORY: Nonsmoker. No drinking. No drugs. ALLERGIES: NO KNOWN DRUG ALLERGIES. MEDICATIONS: He does not remember his medication and he cannot get them for this time. REVIEW OF SYSTEMS: He is very uncomfortable in bed, eyes are opened. No vision changes. No sore throat. No hearing changes. No shortness of breath or cough. No chest pain. No calf pain. No dyspnea on exertion. He has severe high level pain, 10/10 abdominal pain for 3 days, is getting worse. Appetite changes, decreased his appetite in 3 days. No constipation, diarrhea, nausea, or vomiting. No problems urinating. No back pain. No skin rashes. No headache or dizziness. No anxiety. PHYSICAL EXAMINATION: VITAL SIGNS: He has a 98.9 temp, 226/96 blood pressure, 100% O2 sat, 19 respiratory rate. GENERAL: He is a very uncomfortable in the Intensive Care Unit. He is in moderate to severe distress. Alert and oriented x3. HEENT: Head is atraumatic, normocephalic. Extraocular muscles are intact. Throat is dry. Nose is atraumatic. No active bleeding in the nose. NECK: Supple. HEART: Regular rate. Normal S1, S2. LUNGS: Decreased breath sounds but clear to auscultation. ABDOMEN: Right upper quadrant epigastric pain. There is tenotomy scar. It is for the most part distended but soft, diffusely tender abdomen especially in the right upper quadrant. Decreased bowel sounds but present. No guarding, rebound, or CVA tenderness. EXTREMITIES: No edema. NEUROLOGIC: GCS is 15. Cranial nerves II-XII grossly intact. SKIN: Warm and dry. LYMPHATICS: No cervical adenopathy. PSYCHIATRIC: Alert and oriented x3. He has a bunch of things going on. LABORATORY DATA: He had multiple tests done. He has a 144 sodium, potassium 4.3, BUN 12, creatinine 1.1, GFR is greater than 60, sugar is 217, lactic acid is 2.4, high. Calcium is 10.5, magnesium 1.9, total bili is 0.7, AST is 26, ALT is 38, alk phos 108. Troponin I is 0.05 and 0.06, indeterminate. Total protein is 8.5, albumin is 4.4. Lipase is 81. White count is high as 40.7, hemoglobin 16.5, hematocrit 47.6, platelets of 324. He had CAT scan of the abdomen and pelvis and a gallbladder ultrasound. It shows severe fatty infiltration of liver, distended gallbladder, enlarged prostate, thickened urinary bladder. IMPRESSION AND PLAN: There are consults, I called in for Cardiology, GI, Surgery and the Intensive Care Unit. He is currently on Protonix, nitroglycerin IV, Levaquin IV, lactated Ringer's, insulin coverage, Flagyl IV, Dilaudid for pain at high doses. He has severe malignant elevated hypertension, severe right upper quadrant pain, definitely diabetes. We will keep a close eye on him in the Intensive Care Unit. Steve Boucher DO [facility] CENTERJoshua
--- NOTE | 2018-01-16 08:55 | CP.PCM.PN ---
<Randy Chan - Last Filed: 01/16/18 09:07> Subjective - Date & Time of Evaluation Date of Evaluation: 01/16/18 Time of Evaluation: 08:52 - Subjective Subjective: GI Fellow PGY4 Patient is stable. No acute events overnight. He is going for cardiac cath today. IVF running 150cc/hr, still hypertensive. Now off IV antihypertensive per ICU team. Still complaining of RUQ abdominal pain. This has improved with Dilaudid Objective - Vital Signs/Intake and Output Vital Signs (last 24 hours): Temp Pulse Resp BP Pulse Ox 98.8 F 119 H 21 168/97 H 99 01/16/18 04:00 01/16/18 07:00 01/16/18 06:15 01/16/18 06:30 01/16/18 06:30 Intake and Output: 01/16/18 01/16/18 06:59 18:59 Intake Total 74 1800 Output Total 1200 Balance 74 600 - Medications Medications: Current Medications Hydromorphone HCl (Dilaudid) 1 mg IVP Q4H PRN PRN Reason: Pain, severe (8-10) Last Admin: 01/15/18 18:10 Dose: 1 mg Hydromorphone HCl (Dilaudid) 0.5 mg IVP Q3H PRN PRN Reason: Pain, moderate (4-7) Last Admin: 01/16/18 04:17 Dose: 0.5 mg Nitroglycerin/Dextrose (Nitroglycerin 50 Mg/250 Ml D5w) 50 mg in 250 mls @ 6 mls/hr IV .Q24H PRN; Protocol; 20 MCG/MIN PRN Reason: hypertension SBP>160 Last Titration: 01/16/18 05:52 Dose: 15 mcg/min, 4.5 mls/hr Lactated Ringer's (Lactated Ringer's) 1,000 mls @ 150 mls/hr IV .Q6H40M [facility] Last Admin: 01/15/18 15:38 Dose: 150 mls/hr Metronidazole (Flagyl) 500 mg in 100 mls @ 100 mls/hr IVPB Q8 AUGUST PRN Reason: Protocol Last Admin: 01/15/18 23:00 Dose: 100 mls/hr Levofloxacin/Dextrose (Levaquin 500mg) 500 mg in 100 mls @ 100 mls/hr IVPB DAILY AUGUST PRN Reason: Protocol Last Admin: 01/15/18 18:43 Dose: 100 mls/hr Insulin Human Regular (Humulin R Low) 0 units SC Q6 AUGUST PRN Reason: Protocol Last Admin: 01/16/18 00:00 Dose: Not Given Pantoprazole Sodium (Protonix Inj) 40 mg IVP 0600 [facility] - Labs Labs: 01/16/18 05:25 01/16/18 05:25 PT 15.2 SECONDS (9.4-12.5) H 01/16/18 05:25 INR 1.31 01/16/18 05:25 APTT 28.0 Seconds (25.1-36.5) 01/16/18 05:25 - Constitutional Appears: Non-toxic, No Acute Distress - Head Exam Head Exam: NORMAL INSPECTION - Eye Exam Eye Exam: Normal appearance - ENT Exam ENT Exam: Mucous Membranes Moist - Respiratory Exam Respiratory Exam: Clear to Ausculation Bilateral, NORMAL BREATHING PATTERN - Cardiovascular Exam Cardiovascular Exam: REGULAR RHYTHM, +S1, +S2 - GI/Abdominal Exam GI & Abdominal Exam: Soft, Tenderness, Normal Bowel Sounds Additional comments: Consistent RUQ abdominal pain. - Extremities Exam Extremities Exam: Normal Inspection - Neurological Exam Neurological Exam: Alert, Awake, Oriented x3 - Psychiatric Exam Psychiatric exam: Normal Affect, Normal Mood - Skin Skin Exam: Dry, Normal Color Assessment and Plan - Assessment and Plan (Free Text) Assessment: 62M presenting with acute abdominal pain consistent with cholecystitis #RUQ abdominal pain #CAD s/p CABG #HTN urgency #DM #Gout #Hx of Colon CA PLAN: -Concerning for acute cholecystitis. CT scan show fat stranding around the GB. No obvious stone, but these can be missed on imaging. If this is acalculous cholecystitis, this is a worse prognosis. -Surgical evaluation noted. HIDA pending. -Agree with antibiotics -Cardio evaluating with cardiac cath -Continue PPI daily -Agree with dilaudid -Supportive care per medicine/ICU team. Monitor IV fluids carefully and volume overload in cardiac patient. -No endoscopic procedures planned. <Brian Borden - Last Filed: 01/16/18 09:11> Objective - Vital Signs/Intake and Output Vital Signs (last 24 hours): Temp Pulse Resp BP Pulse Ox 98.8 F 119 H 21 168/97 H 99 01/16/18 04:00 01/16/18 07:00 01/16/18 06:15 01/16/18 06:30 01/16/18 06:30 Intake and Output: 01/16/18 01/16/18 06:59 18:59 Intake Total 74 1800 Output Total 1200 Balance 74 600 - Medications Medications: Current Medications Hydromorphone HCl (Dilaudid) 1 mg IVP Q4H PRN PRN Reason: Pain, severe (8-10) Last Admin: 01/15/18 18:10 Dose: 1 mg Hydromorphone HCl (Dilaudid) 0.5 mg IVP Q3H PRN PRN Reason: Pain, moderate (4-7) Last Admin: 01/16/18 04:17 Dose: 0.5 mg Nitroglycerin/Dextrose (Nitroglycerin 50 Mg/250 Ml D5w) 50 mg in 250 mls @ 6 mls/hr IV .Q24H PRN; Protocol; 20 MCG/MIN PRN Reason: hypertension SBP>160 Last Titration: 01/16/18 05:52 Dose: 15 mcg/min, 4.5 mls/hr Lactated Ringer's (Lactated Ringer's) 1,000 mls @ 150 mls/hr IV .Q6H40M [facility] Last Admin: 01/15/18 15:38 Dose: 150 mls/hr Metronidazole (Flagyl) 500 mg in 100 mls @ 100 mls/hr IVPB Q8 AUGUST PRN Reason: Protocol Last Admin: 01/15/18 23:00 Dose: 100 mls/hr Levofloxacin/Dextrose (Levaquin 500mg) 500 mg in 100 mls @ 100 mls/hr IVPB DAILY AUGUST PRN Reason: Protocol Last Admin: 01/15/18 18:43 Dose: 100 mls/hr Insulin Human Regular (Humulin R Low) 0 units SC Q6 AUGUST PRN Reason: Protocol Last Admin: 01/16/18 00:00 Dose: Not Given Pantoprazole Sodium (Protonix Inj) 40 mg IVP 0600 [facility] - Labs Labs: 01/16/18 05:25 01/16/18 05:25 PT 15.2 SECONDS (9.4-12.5) H 01/16/18 05:25 INR 1.31 01/16/18 05:25 APTT 28.0 Seconds (25.1-36.5) 01/16/18 05:25 Attending/Attestation - Attestation I have personally seen and examined this patient.: Yes I have fully participated in the care of the patient.: Yes I have reviewed all pertinent clinical information, including history, physical exam and plan: Yes Notes (Text): 01/16/18 09:08 I have seen and examined patient with GI fellow. No acute events overnight, continues to endorse RUQ abdominal pain. No reported nausea, vomiting, fever/ chills. Review of vitals from today shows elevated BP, tachycardia. RUQ pain, normal LFTs - possibly related to acalculous cholecystitis Hypertensive urgency CAD s/p CABG DM History of colon cancer s/p partial colon resection - Liquid diet as tolerated - Continue with antibiotic therapy - Follow up cardiology recommendations s/p cardiac cath today - No further planned GI interventions, will sign off case. Further management as per surgical team. Please reconsult as necessary, thank you.
[2018-01-16] MEDS ORDERED: Sodium Chloride 0.9% 1,000 ML IV SCH (09:15)
--- NOTE | 2018-01-16 10:10 | CARDCATH ---
PROCEDURE DATE: 01/16/2018 CARDIAC CATHETERIZATION HISTORY: The patient is a 62-year-old male, who presents with epigastric right upper quadrant pain. His troponin was indeterminate. The patient had an extensive cardiac history in the past. Because of this, a cardiac catheterization was recommended. PROCEDURE: Left heart catheterization with coronary arteriography, left ventriculogram, RETANA angiogram, saphenous vein graft angiogram and supra-aortic valvular injection were performed. There were no complications. The right femoral artery was cannulated with a 6-Maltese sheath. There were no complications. I performed moderate sedation, which included the presence of an independent trained observer that assisted in monitoring the patient's level of consciousness and physiologic status. After administration of Versed and fentanyl, my intra service time was 30 minutes. The findings on catheterization revealed a left ventricle that contracted normally. Estimated ejection fraction is 65-70%. His coronary anatomy revealed a codominant circulation. The RCA revealed diffuse atherosclerosis with 50% stenosis at the ostium of the RCA. No other critical lesions were noted in the RCA. The left main artery was unremarkable. The LAD had diffuse atherosclerosis with 30-40% stenosis in the midportion of the LAD with a patent stent noted. The diagonal vessels revealed diffuse atherosclerosis. The circumflex artery revealed an occluded AV groove branch of the circumflex artery. The high OM was free of significant disease. The RETANA was selectively catheterized and found to be occluded in its distal portion prior to the anastomotic site of the LAD. The saphenous vein graft to the posterolateral branch of the circumflex artery was found to be patent and provided good antegrade flow. Supra-aortic valvular injection revealed no aortic insufficiency and no other bypass grafts noted. Angio-Seal was used to close the femoral artery site. The patient tolerated the procedure well. In summary, the procedure revealed normal LV function with an EF of 65-70%. Triple-vessel CAD. Patent stent in the mid LAD. Patent saphenous vein graft to the occluded AV groove branch of the circumflex artery. A 50% stenosis at the ostium of an RCA. Given these findings, the patient's cardiac status is stable. There is no evidence for cardiac contribution to his admitting issues. I have discussed with the patient and family about the risks, benefits of taking Brilinta for such a long time. We will hold off Brilinta at this time. His cardiac status is stable for his planned surgery of the gallbladder other than the increased risk given his recent Brilinta intake. I have discussed with the patient about having a discussion with his quality control clerk in [place] about the risks, benefits of taking Brilinta. In addition, I have emphasized the need for cardiac risk reduction program, which needs to include weight loss. Jamil Sosa MD
--- NOTE | 2018-01-16 10:25 | CP.CCUPN ---
<Ally Alva - Last Filed: 01/16/18 12:10> CCU Subjective - Physician Review Subjective (Free Text): ICU progress note for Dr. Geovanny Alva, PGY 1 Patient seen and examined this morning at bedside. Overnight patient remained hypertensive. He states pain was well controlled with persistent RUQ pain improved from day prior. Patient continued to have mild nausea associated with the pain. He was taken this AM for Cardiac catherization with Dr. Sosa in which no intervention was undertaken. He otherwise denies BERG, SOB, dysuria, vomiting and chest pain. 01/16/18 07:23 01/16/18 12:22 CCU Objective - Vital Signs / Intake & Output Vital Signs (Last 4 hours): Vital Signs Pulse Resp BP Pulse Ox 01/16/18 10:14 116 H 22 189/109 H 01/16/18 10:00 118 H 01/16/18 09:59 117 H 18 173/92 H 01/16/18 09:44 117 H 18 173/92 H 01/16/18 09:29 116 H 21 161/96 H 01/16/18 09:15 104 H 21 152/76 H 98 01/16/18 07:00 119 H 01/16/18 06:30 119 H 168/97 H 99 Intake and Output (Last 8hrs): Intake & Output 01/15/18 01/16/18 01/16/18 22:59 06:59 14:59 Intake Total 127 41 9222 Output Total 0 1200 Balance 356 50 620 Weight 275 lb Intake: IV 385 39 2897 Left Wrist 300 1800 Right Antecubital 6 Output: Urine 0 1200 Urine, Voided 0 1200 Stool 0 0 Other: Voiding Method Urinal - Physical Exam Head: Positive for: Atraumatic, Normocephalic Extroacular Muscles: Positive for: EOMI Conjunctiva: Positive for: Normal Mouth: Positive for: Dry Nose (External): Positive for: Atraumatic Nose (Internal): Positive for: No Active Bleeding Neck: Positive for: Normal Range of Motion Respiratory/Chest: Positive for: Clear to Auscultation, Good Air Exchange. Negative for: Respiratory Distress, Accessory Muscle Use Cardiovascular: Positive for: Regular Rate and Rhythm, Normal S1, S2. Negative for: Murmurs Abdomen: Positive for: Tenderness (RUQ>epigastric), Scars (sternotomy scar). Negative for: Distention, Peritoneal Signs, Rebound, Guarding, McBurney's Point Tender, Rovsing's Sign Present Upper Extremity: Positive for: Normal Inspection, NORMAL PULSES. Negative for: Cyanosis, Edema Lower Extremity: Positive for: Normal Inspection, NORMAL PULSES. Negative for: Edema, CALF TENDERNESS Neurological: Positive for: GCS=15, Speech Normal, Motor Func Grossly Intact Skin: Positive for: Warm, Dry, Normal Color. Negative for: Rashes Lymphatic: Negative for: Cervical Adenopathy Psychiatric: Positive for: Alert, Oriented x 3, Normal Insight, Normal Concentration - Medications Active Medications: Active Medications Generic Name Dose Route Start Last Admin Trade Name Freq PRN Reason Stop Dose Admin Hydromorphone HCl 1 mg 01/15/18 16:45 01/15/18 18:10 Dilaudid IVP 1 mg Q4H PRN Administration Pain, severe (8-10) Hydromorphone HCl 0.5 mg 01/15/18 16:45 01/16/18 04:17 Dilaudid IVP 0.5 mg Q3H PRN Administration Pain, moderate (4-7) Nitroglycerin/Dextrose 50 mg in 250 mls @ 6 mls/hr 01/15/18 14:20 01/16/18 10 :21 Nitroglycerin 50 Mg/250 Ml D5w IV 20 mcg/min .Q24H PRN 6 mls/hr hypertension SBP>160 Titration Protocol 20 MCG/MIN Metronidazole 500 mg in 100 mls @ 100 mls/hr 01/15/18 16:45 01/15/18 23:00 Flagyl IVPB 100 mls/hr Q8 [facility] Administration Protocol Levofloxacin/Dextrose 500 mg in 100 mls @ 100 mls/hr 01/15/18 16:45 01/15/18 18:43 Levaquin 500mg IVPB 100 mls/hr DAILY [facility] Administration Protocol Sodium Chloride 1,000 mls @ 100 mls/hr 01/16/18 09:15 01/16/18 09:35 Sodium Chloride 0.9% IV 01/16/18 14:00 100 mls/hr .Q10H [facility] Administration Insulin Human Regular 0 units 01/16/18 00:00 01/16/18 00:00 Humulin R Low SC Not Given Q6 [facility] Protocol Pantoprazole Sodium 40 mg 01/17/18 06:00 Protonix Inj IVP 0600 [facility] - Patient Studies Lab Studies: Lab Studies 01/16/18 01/16/18 01/16/18 Range/Units 05:25 05:25 05:25 WBC 24.7 H D (4.5-11.0) 10^3/ul RBC 5.12 (3.5-6.1) 10^6/uL Hgb 15.2 (14.0-18.0) g/dL Hct 45.6 (42.0-52.0) % MCV 89.1 (80.0-105.0) fl MCH 29.7 (25.0-35.0) pg MCHC 33.3 (31.0-37.0) g/dl RDW 14.1 (11.5-14.5) % Plt Count 258 (120.0-450.0) 10^3/uL MPV 12.7 H (7.0-11.0) fl Gran % 79.4 H (50.0-68.0) % Lymph % (Auto) 7.7 L (22.0-35.0) % Harper % (Auto) 12.8 H (1.0-6.0) % Eos % (Auto) 0.0 L (1.5-5.0) % Baso % (Auto) 0.1 (0.0-3.0) % Gran # 19.61 H (1.4-6.5) Lymph # (Auto) 1.9 (1.2-3.4) Harper # (Auto) 3.2 H (0.1-0.6) Eos # (Auto) 0.0 (0.0-0.7) Baso # (Auto) 0.03 (0.0-2.0) K/mm3 PT 15.2 H (9.4-12.5) SECONDS INR 1.31 APTT 28.0 (25.1-36.5) Seconds Sodium 146 (132-148) mmol/L Potassium 4.0 (3.6-5.0) mmol/L Chloride 110 H (98-107) mmol/L Carbon Dioxide 25 (21-33) mmol/L Anion Gap 15 (10-20) BUN 16 (7-21) mg/dL Creatinine 1.4 (0.8-1.5) mg/dl Est GFR ( Amer) > 60 Est GFR (Non-Af Amer) 51 POC Glucose (mg/dL) (65-110) mg/dL Random Glucose 212 H (70-110) mg/dL Lactic Acid (0.7-2.1) mmol/L Calcium 10.0 (8.4-10.5) mg/dL Phosphorus 3.1 (2.5-4.5) mg/dL Magnesium 2.0 (1.7-2.2) mg/dL Total Bilirubin 1.0 (0.2-1.3) mg/dL AST 25 (17-59) U/L ALT 28 (7-56) U/L Alkaline Phosphatase 98 (38-126) U/L Troponin I ng/mL Total Protein 7.8 (5.8-8.3) g/dL Albumin 4.0 (3.0-4.8) g/dL Globulin 3.8 gm/dL Albumin/Globulin Ratio 1.1 (1.1-1.8) Amylase (35-125) U/L 01/15/18 01/15/18 01/15/18 Range/Units 22:31 21:37 17:24 WBC (4.5-11.0) 10^3/ul RBC (3.5-6.1) 10^6/uL Hgb (14.0-18.0) g/dL Hct (42.0-52.0) % MCV (80.0-105.0) fl MCH (25.0-35.0) pg MCHC (31.0-37.0) g/dl RDW (11.5-14.5) % Plt Count (120.0-450.0) 10^3/uL MPV (7.0-11.0) fl Gran % (50.0-68.0) % Lymph % (Auto) (22.0-35.0) % Harper % (Auto) (1.0-6.0) % Eos % (Auto) (1.5-5.0) % Baso % (Auto) (0.0-3.0) % Gran # (1.4-6.5) Lymph # (Auto) (1.2-3.4) Harper # (Auto) (0.1-0.6) Eos # (Auto) (0.0-0.7) Baso # (Auto) (0.0-2.0) K/mm3 PT (9.4-12.5) SECONDS INR APTT (25.1-36.5) Seconds Sodium (132-148) mmol/L Potassium (3.6-5.0) mmol/L Chloride (98-107) mmol/L Carbon Dioxide (21-33) mmol/L Anion Gap (10-20) BUN (7-21) mg/dL Creatinine (0.8-1.5) mg/dl Est GFR ( Amer) Est GFR (Non-Af Amer) POC Glucose (mg/dL) 211 H 193 H (65-110) mg/dL Random Glucose (70-110) mg/dL Lactic Acid (0.7-2.1) mmol/L Calcium (8.4-10.5) mg/dL Phosphorus (2.5-4.5) mg/dL Magnesium (1.7-2.2) mg/dL Total Bilirubin (0.2-1.3) mg/dL AST (17-59) U/L ALT (7-56) U/L Alkaline Phosphatase (38-126) U/L Troponin I 0.06 ng/mL Total Protein (5.8-8.3) g/dL Albumin (3.0-4.8) g/dL Globulin gm/dL Albumin/Globulin Ratio (1.1-1.8) Amylase (35-125) U/L 01/15/18 01/15/18 Range/Units 15:07 15:07 WBC (4.5-11.0) 10^3/ul RBC (3.5-6.1) 10^6/uL Hgb (14.0-18.0) g/dL Hct (42.0-52.0) % MCV (80.0-105.0) fl MCH (25.0-35.0) pg MCHC (31.0-37.0) g/dl RDW (11.5-14.5) % Plt Count (120.0-450.0) 10^3/uL MPV (7.0-11.0) fl Gran % (50.0-68.0) % Lymph % (Auto) (22.0-35.0) % Harper % (Auto) (1.0-6.0) % Eos % (Auto) (1.5-5.0) % Baso % (Auto) (0.0-3.0) % Gran # (1.4-6.5) Lymph # (Auto) (1.2-3.4) Harper # (Auto) (0.1-0.6) Eos # (Auto) (0.0-0.7) Baso # (Auto) (0.0-2.0) K/mm3 PT (9.4-12.5) SECONDS INR APTT (25.1-36.5) Seconds Sodium (132-148) mmol/L Potassium (3.6-5.0) mmol/L Chloride (98-107) mmol/L Carbon Dioxide (21-33) mmol/L Anion Gap (10-20) BUN (7-21) mg/dL Creatinine (0.8-1.5) mg/dl Est GFR ( Amer) Est GFR (Non-Af Amer) POC Glucose (mg/dL) (65-110) mg/dL Random Glucose (70-110) mg/dL Lactic Acid 2.4 H (0.7-2.1) mmol/L Calcium (8.4-10.5) mg/dL Phosphorus (2.5-4.5) mg/dL Magnesium (1.7-2.2) mg/dL Total Bilirubin (0.2-1.3) mg/dL AST (17-59) U/L ALT (7-56) U/L Alkaline Phosphatase (38-126) U/L Troponin I 0.06 ng/mL Total Protein (5.8-8.3) g/dL Albumin (3.0-4.8) g/dL Globulin gm/dL Albumin/Globulin Ratio (1.1-1.8) Amylase 94 (35-125) U/L Laboratory Results - last 24 hr 01/15/18 01/15/18 01/15/18 15:07 15:07 17:24 WBC RBC Hgb Hct MCV MCH MCHC RDW Plt Count MPV Gran % Lymph % (Auto) Harper % (Auto) Eos % (Auto) Baso % (Auto) Gran # Lymph # (Auto) Harper # (Auto) Eos # (Auto) Baso # (Auto) PT INR APTT Sodium Potassium Chloride Carbon Dioxide Anion Gap BUN Creatinine Est GFR ( Amer) Est GFR (Non-Af Amer) POC Glucose (mg/dL) 193 H Random Glucose Lactic Acid 2.4 H Calcium Phosphorus Magnesium Total Bilirubin AST ALT Alkaline Phosphatase Troponin I 0.06 Total Protein Albumin Globulin Albumin/Globulin Ratio Amylase 94 01/15/18 01/15/18 01/16/18 21:37 22:31 05:25 WBC 24.7 H D RBC 5.12 Hgb 15.2 Hct 45.6 MCV 89.1 MCH 29.7 MCHC 33.3 RDW 14.1 Plt Count 258 MPV 12.7 H Gran % 79.4 H Lymph % (Auto) 7.7 L Harper % (Auto) 12.8 H Eos % (Auto) 0.0 L Baso % (Auto) 0.1 Gran # 19.61 H Lymph # (Auto) 1.9 Harper # (Auto) 3.2 H Eos # (Auto) 0.0 Baso # (Auto) 0.03 PT INR APTT Sodium Potassium Chloride Carbon Dioxide Anion Gap BUN Creatinine Est GFR ( Amer) Est GFR (Non-Af Amer) POC Glucose (mg/dL) 211 H Random Glucose Lactic Acid Calcium Phosphorus Magnesium Total Bilirubin AST ALT Alkaline Phosphatase Troponin I 0.06 Total Protein Albumin Globulin Albumin/Globulin Ratio Amylase 01/16/18 01/16/18 05:25 05:25 WBC RBC Hgb Hct MCV MCH MCHC RDW Plt Count MPV Gran % Lymph % (Auto) Harper % (Auto) Eos % (Auto) Baso % (Auto) Gran # Lymph # (Auto) Harper # (Auto) Eos # (Auto) Baso # (Auto) PT 15.2 H INR 1.31 APTT 28.0 Sodium 146 Potassium 4.0 Chloride 110 H Carbon Dioxide 25 Anion Gap 15 BUN 16 Creatinine 1.4 Est GFR ( Amer) > 60 Est GFR (Non-Af Amer) 51 POC Glucose (mg/dL) Random Glucose 212 H Lactic Acid Calcium 10.0 Phosphorus 3.1 Magnesium 2.0 Total Bilirubin 1.0 AST 25 ALT 28 Alkaline Phosphatase 98 Troponin I Total Protein 7.8 Albumin 4.0 Globulin 3.8 Albumin/Globulin Ratio 1.1 Amylase EKG/Cardiology Studies: Cardiology / EKG Studies 01/16/18 07:00 EKG [ELECTROCARDIOGRAM] Routine Comment: Reason For Exam: ACS r/o HTN urgency Fingerstick Blood Sugar Results: 193 Review of Systems - Review of Systems All systems: reviewed and no additional remarkable complaints except (as per HPI ) Critical Care Progress Note - Nutrition Nutrition: Nutrition Category Date Time Status NPO Diet [DIET] Diets 01/16/18 Breakfast Ordered Assessment/Plan - Assessment and Plan (Free Text) Assessment: 62M with extensive cardiac hx including CAD/CABG and HTN admitted with 3 days of abd pain [place] as well as uncontrolled HTN. His pain is suggestive of biliary colic. Imaging does not show stones in GB but does show dilated GB. LFTs, bili and pancr emzymes are normal as well. GI on board for evaluation. May benefit from HIDA / MRCP / endoscopy. He is not febrile and does not show signs of sepsis. No n/v/diarrhea. Lactic acid 2.4 His BP is very high, he did not take his antihypertensive today. He does not show any signs of end organ damage. Would resume him home PO meds ( is getting list). Cardio on board requesting tridil drip which will require him be monitored in the ICU. HTN mmt as per cardio. Overnight Bp Plan: Neuro: -AOx3 - moving all extremities past midline - GCS 15, no gross neuro deficits - Dilaudid for pain control Cardio: - PMH CABG, HTN, HLD, CAD and stent placements - did not take medications before arrival yesterday, started on nitro drip - currently on nitro drip at 15 post Cath, will continue nitro per cardio recs - Troponins x3 stable at 0.06 - went for Cath with Dr. Sosa this AM, showed stenosis in RCA 50%, no intervention undertaken - denies Chest pain Pulm: - lungs clear bilaterally - saturating well on RA - maintain O2 sats > 90% GI: - intermittent RUQ abdominal pain - GB US and CT negative for signs of cholecystitis, no stones visualized, no pericholecystic fluid, no GB wall thickening, no biliary tree dilatation - enlarged GB on US and CT - Bili 1/ AST 25/ ALT 28/ alk Phos 98 all WNL - Per surgery recs may consider IR percutaneous cholecystostomy tube if patient acutely decompensates Endo: - pmh DM, on SSI - BS checks Q6hrs - maintain normoglycemia - hypogrlycemia protocol in place Renal: - BUN/Cr 16/1.4 - UOP appropriate - denies dysuria Heme: - hgb/hct 15.2/45 - PLT 258 - no signs of bleeding ID: - afebrile - no signs of infectious etiology GIppx: protonix DVTppx: SCDs Seen and discussed with Dr. Geovanny Alva, PGY 1 - Date & Time Date: 01/16/18 Time: 07:25 <Chirag Small - Last Filed: 01/16/18 12:36> CCU Objective - Vital Signs / Intake & Output Vital Signs (Last 4 hours): Vital Signs Temp Pulse Resp BP Pulse Ox 01/16/18 11:44 98.8 F 122 H 22 157/87 H 01/16/18 11:41 98.8 F 119 H 22 157/87 H 94 L 01/16/18 11:14 98.8 F 116 H 19 192/89 H 01/16/18 10:59 98.8 F 119 H 22 163/82 H 01/16/18 10:44 121 H 20 167/90 H 01/16/18 10:35 117 H 11 L 137/91 H 98 01/16/18 10:31 117 H 20 203/87 H 99 01/16/18 10:30 116 H 14 99 01/16/18 10:29 118 H 19 137/91 H 01/16/18 10:20 117 H 98 01/16/18 10:16 113 H 20 189/109 H 98 01/16/18 10:14 116 H 22 189/109 H 01/16/18 10:10 119 H 36 H 99 01/16/18 10:00 120 H 18 97 01/16/18 09:59 116 H 18 173/92 H 100 01/16/18 09:50 121 H 36 H 96 01/16/18 09:45 117 H 39 H 183/103 H 97 01/16/18 09:44 117 H 18 173/92 H 01/16/18 09:40 110 H 14 99 01/16/18 09:30 113 H 161/96 H 95 01/16/18 09:29 116 H 21 161/96 H 01/16/18 09:20 114 H 96 01/16/18 09:15 104 H 28 H 152/76 H 99 01/16/18 09:10 111 H 96 01/16/18 09:07 104 H 46 H 168/83 H 99 01/16/18 09:05 110 H Intake and Output (Last 8hrs): Intake & Output 01/15/18 01/16/18 01/16/18 22:59 06:59 14:59 Intake Total 112 62 3620 Output Total 0 1780 Balance 356 50 80 Weight 275 lb Intake: IV 532 06 4905 Left Wrist 300 1800 Right Antecubital 6 Output: Urine 0 1780 Urine, Voided 0 1780 Stool 0 0 Other: Voiding Method Urinal - Medications Active Medications: Active Medications Generic Name Dose Route Start Last Admin Trade Name Freq PRN Reason Stop Dose Admin Hydromorphone HCl 1 mg 01/15/18 16:45 01/15/18 18:10 Dilaudid IVP 1 mg Q4H PRN Administration Pain, severe (8-10) Hydromorphone HCl 0.5 mg 01/15/18 16:45 01/16/18 11:22 Dilaudid IVP 0.5 mg Q3H PRN Administration Pain, moderate (4-7) Nitroglycerin/Dextrose 50 mg in 250 mls @ 6 mls/hr 01/15/18 14:20 01/16/18 10 :38 Nitroglycerin 50 Mg/250 Ml D5w IV 10 mcg/min .Q24H PRN 3 mls/hr hypertension SBP>160 Titration Protocol 20 MCG/MIN Metronidazole 500 mg in 100 mls @ 100 mls/hr 01/15/18 16:45 01/15/18 23:00 Flagyl IVPB 100 mls/hr Q8 [facility] Administration Protocol Levofloxacin/Dextrose 500 mg in 100 mls @ 100 mls/hr 01/15/18 16:45 01/16/18 12:07 Levaquin 500mg IVPB 100 mls/hr DAILY [facility] Administration Protocol Sodium Chloride 1,000 mls @ 100 mls/hr 01/16/18 09:15 01/16/18 09:35 Sodium Chloride 0.9% IV 01/16/18 14:00 100 mls/hr .Q10H [facility] Administration Insulin Human Regular 0 units 01/16/18 00:00 01/16/18 12:12 Humulin R Low SC Not Given Q6 [facility] Protocol Pantoprazole Sodium 40 mg 01/17/18 06:00 Protonix Inj IVP 0600 [facility] - Patient Studies Lab Studies: Lab Studies 01/16/18 01/16/18 01/16/18 Range/Units 12:11 05:25 05:25 WBC (4.5-11.0) 10^3/ul RBC (3.5-6.1) 10^6/uL Hgb (14.0-18.0) g/dL Hct (42.0-52.0) % MCV (80.0-105.0) fl MCH (25.0-35.0) pg MCHC (31.0-37.0) g/dl RDW (11.5-14.5) % Plt Count (120.0-450.0) 10^3/uL MPV (7.0-11.0) fl Gran % (50.0-68.0) % Lymph % (Auto) (22.0-35.0) % Harper % (Auto) (1.0-6.0) % Eos % (Auto) (1.5-5.0) % Baso % (Auto) (0.0-3.0) % Gran # (1.4-6.5) Lymph # (Auto) (1.2-3.4) Harper # (Auto) (0.1-0.6) Eos # (Auto) (0.0-0.7) Baso # (Auto) (0.0-2.0) K/mm3 PT 15.2 H (9.4-12.5) SECONDS INR 1.31 APTT 28.0 (25.1-36.5) Seconds Sodium 146 (132-148) mmol/L Potassium 4.0 (3.6-5.0) mmol/L Chloride 110 H (98-107) mmol/L Carbon Dioxide 25 (21-33) mmol/L Anion Gap 15 (10-20) BUN 16 (7-21) mg/dL Creatinine 1.4 (0.8-1.5) mg/dl Est GFR ( Amer) > 60 Est GFR (Non-Af Amer) 51 POC Glucose (mg/dL) 229 H (65-110) mg/dL Random Glucose 212 H (70-110) mg/dL Lactic Acid (0.7-2.1) mmol/L Calcium 10.0 (8.4-10.5) mg/dL Phosphorus 3.1 (2.5-4.5) mg/dL Magnesium 2.0 (1.7-2.2) mg/dL Total Bilirubin 1.0 (0.2-1.3) mg/dL AST 25 (17-59) U/L ALT 28 (7-56) U/L Alkaline Phosphatase 98 (38-126) U/L Troponin I ng/mL Total Protein 7.8 (5.8-8.3) g/dL Albumin 4.0 (3.0-4.8) g/dL Globulin 3.8 gm/dL Albumin/Globulin Ratio 1.1 (1.1-1.8) Amylase (35-125) U/L 01/16/18 01/15/18 01/15/18 Range/Units 05:25 22:31 21:37 WBC 24.7 H D (4.5-11.0) 10^3/ul RBC 5.12 (3.5-6.1) 10^6/uL Hgb 15.2 (14.0-18.0) g/dL Hct 45.6 (42.0-52.0) % MCV 89.1 (80.0-105.0) fl MCH 29.7 (25.0-35.0) pg MCHC 33.3 (31.0-37.0) g/dl RDW 14.1 (11.5-14.5) % Plt Count 258 (120.0-450.0) 10^3/uL MPV 12.7 H (7.0-11.0) fl Gran % 79.4 H (50.0-68.0) % Lymph % (Auto) 7.7 L (22.0-35.0) % Harper % (Auto) 12.8 H (1.0-6.0) % Eos % (Auto) 0.0 L (1.5-5.0) % Baso % (Auto) 0.1 (0.0-3.0) % Gran # 19.61 H (1.4-6.5) Lymph # (Auto) 1.9 (1.2-3.4) Harper # (Auto) 3.2 H (0.1-0.6) Eos # (Auto) 0.0 (0.0-0.7) Baso # (Auto) 0.03 (0.0-2.0) K/mm3 PT (9.4-12.5) SECONDS INR APTT (25.1-36.5) Seconds Sodium (132-148) mmol/L Potassium (3.6-5.0) mmol/L Chloride (98-107) mmol/L Carbon Dioxide (21-33) mmol/L Anion Gap (10-20) BUN (7-21) mg/dL Creatinine (0.8-1.5) mg/dl Est GFR ( Amer) Est GFR (Non-Af Amer) POC Glucose (mg/dL) 211 H (65-110) mg/dL Random Glucose (70-110) mg/dL Lactic Acid (0.7-2.1) mmol/L Calcium (8.4-10.5) mg/dL Phosphorus (2.5-4.5) mg/dL Magnesium (1.7-2.2) mg/dL Total Bilirubin (0.2-1.3) mg/dL AST (17-59) U/L ALT (7-56) U/L Alkaline Phosphatase (38-126) U/L Troponin I 0.06 ng/mL Total Protein (5.8-8.3) g/dL Albumin (3.0-4.8) g/dL Globulin gm/dL Albumin/Globulin Ratio (1.1-1.8) Amylase (35-125) U/L 01/15/18 01/15/18 01/15/18 Range/Units 17:24 15:07 15:07 WBC (4.5-11.0) 10^3/ul RBC (3.5-6.1) 10^6/uL Hgb (14.0-18.0) g/dL Hct (42.0-52.0) % MCV (80.0-105.0) fl MCH (25.0-35.0) pg MCHC (31.0-37.0) g/dl RDW (11.5-14.5) % Plt Count (120.0-450.0) 10^3/uL MPV (7.0-11.0) fl Gran % (50.0-68.0) % Lymph % (Auto) (22.0-35.0) % Harper % (Auto) (1.0-6.0) % Eos % (Auto) (1.5-5.0) % Baso % (Auto) (0.0-3.0) % Gran # (1.4-6.5) Lymph # (Auto) (1.2-3.4) Harper # (Auto) (0.1-0.6) Eos # (Auto) (0.0-0.7) Baso # (Auto) (0.0-2.0) K/mm3 PT (9.4-12.5) SECONDS INR APTT (25.1-36.5) Seconds Sodium (132-148) mmol/L Potassium (3.6-5.0) mmol/L Chloride (98-107) mmol/L Carbon Dioxide (21-33) mmol/L Anion Gap (10-20) BUN (7-21) mg/dL Creatinine (0.8-1.5) mg/dl Est GFR ( Amer) Est GFR (Non-Af Amer) POC Glucose (mg/dL) 193 H (65-110) mg/dL Random Glucose (70-110) mg/dL Lactic Acid 2.4 H (0.7-2.1) mmol/L Calcium (8.4-10.5) mg/dL Phosphorus (2.5-4.5) mg/dL Magnesium (1.7-2.2) mg/dL Total Bilirubin (0.2-1.3) mg/dL AST (17-59) U/L ALT (7-56) U/L Alkaline Phosphatase (38-126) U/L Troponin I 0.06 ng/mL Total Protein (5.8-8.3) g/dL Albumin (3.0-4.8) g/dL Globulin gm/dL Albumin/Globulin Ratio (1.1-1.8) Amylase 94 (35-125) U/L Laboratory Results - last 24 hr 01/15/18 01/15/18 01/15/18 15:07 15:07 17:24 WBC RBC Hgb Hct MCV MCH MCHC RDW Plt Count MPV Gran % Lymph % (Auto) Harper % (Auto) Eos % (Auto) Baso % (Auto) Gran # Lymph # (Auto) Harper # (Auto) Eos # (Auto) Baso # (Auto) PT INR APTT Sodium Potassium Chloride Carbon Dioxide Anion Gap BUN Creatinine Est GFR ( Amer) Est GFR (Non-Af Amer) POC Glucose (mg/dL) 193 H Random Glucose Lactic Acid 2.4 H Calcium Phosphorus Magnesium Total Bilirubin AST ALT Alkaline Phosphatase Troponin I 0.06 Total Protein Albumin Globulin Albumin/Globulin Ratio Amylase 94 01/15/18 01/15/18 01/16/18 21:37 22:31 05:25 WBC 24.7 H D RBC 5.12 Hgb 15.2 Hct 45.6 MCV 89.1 MCH 29.7 MCHC 33.3 RDW 14.1 Plt Count 258 MPV 12.7 H Gran % 79.4 H Lymph % (Auto) 7.7 L Harper % (Auto) 12.8 H Eos % (Auto) 0.0 L Baso % (Auto) 0.1 Gran # 19.61 H Lymph # (Auto) 1.9 Harper # (Auto) 3.2 H Eos # (Auto) 0.0 Baso # (Auto) 0.03 PT INR APTT Sodium Potassium Chloride Carbon Dioxide Anion Gap BUN Creatinine Est GFR ( Amer) Est GFR (Non-Af Amer) POC Glucose (mg/dL) 211 H Random Glucose Lactic Acid Calcium Phosphorus Magnesium Total Bilirubin AST ALT Alkaline Phosphatase Troponin I 0.06 Total Protein Albumin Globulin Albumin/Globulin Ratio Amylase 01/16/18 01/16/18 01/16/18 05:25 05:25 12:11 WBC RBC Hgb Hct MCV MCH MCHC RDW Plt Count MPV Gran % Lymph % (Auto) Harper % (Auto) Eos % (Auto) Baso % (Auto) Gran # Lymph # (Auto) Harper # (Auto) Eos # (Auto) Baso # (Auto) PT 15.2 H INR 1.31 APTT 28.0 Sodium 146 Potassium 4.0 Chloride 110 H Carbon Dioxide 25 Anion Gap 15 BUN 16 Creatinine 1.4 Est GFR ( Amer) > 60 Est GFR (Non-Af Amer) 51 POC Glucose (mg/dL) 229 H Random Glucose 212 H Lactic Acid Calcium 10.0 Phosphorus 3.1 Magnesium 2.0 Total Bilirubin 1.0 AST 25 ALT 28 Alkaline Phosphatase 98 Troponin I Total Protein 7.8 Albumin 4.0 Globulin 3.8 Albumin/Globulin Ratio 1.1 Amylase EKG/Cardiology Studies: Cardiology / EKG Studies 01/16/18 07:00 EKG [ELECTROCARDIOGRAM] Routine Comment: Reason For Exam: ACS r/o HTN urgency Critical Care Progress Note - Nutrition Nutrition: Nutrition Category Date Time Status NPO Diet [DIET] Diets 01/16/18 Breakfast Ordered Assessment/Plan - Assessment and Plan (Free Text) Plan: Patient seen and examined on rounds with resident, agree with note with following additions/exceptions: Patient is 62yo male w/PMHx CAD/CABG and HTN admitted with 3 days of abd pain and uncontrolled HTN. Patient was started on Nitro drip by cardiology, had cardiac cath today, please refer to cardiac cath report. Imaging does not show stones in GB but does show dilated GB. LFTs, bili are normal. GI on board for evaluation. May need HIDA. Currently afebrile, BP stable, comfortable in NAD. Lactic acid 2.4 Followed by surgery, no plans for surgical intervention Plan for IG guided perc brent drain HTN Urgency CAD r/o acalculous cholecystitis Recommend: - supp o2 as needed, duonebs PRN, IS - Broad spectrum Abx, cover for abdominal etiology, Cipro, Flagyl - IR for possible perc brent drain - follow up surgery - BP control, Nitro dirp, goal SBP 160 - HIDA scan - NPO - ASA, Brillinta - GI ppx - DVT ppx - Monitor in MICU Critical care time 35 minutes
[2018-01-16] MEDS: levoFLOXacin 500 mg in D5W 500 MG/100 ML BAG IVPB SCH (12:07)
[2018-01-16] MEDS: Insulin Reg-LOW-Coverage SC SCH ×3 (12:12→18:50)
--- NOTE | 2018-01-16 12:52 | CP.PCM.PN ---
Subjective - Date & Time of Evaluation Date of Evaluation: 01/16/18 Time of Evaluation: 08:00 - Subjective Subjective: General Surgery Dr. Luis Pt S&E @bedside. no acute events overnight. pt taken to radiographer cardiac catheterization by cardiology this AM for evaluation. no acute findings. Pain somewhat improved w/ IV pain meds. denies F/C, N/V. NPO. Objective - Vital Signs/Intake and Output Vital Signs (last 24 hours): Temp Pulse Resp BP Pulse Ox 98.8 F 114 H 16 166/82 H 94 L 01/16/18 12:14 01/16/18 12:14 01/16/18 12:14 01/16/18 12:14 01/16/18 11:41 Intake and Output: 01/16/18 01/16/18 06:59 18:59 Intake Total 74 1875 Output Total 1780 Balance 74 95 - Medications Medications: Current Medications Hydromorphone HCl (Dilaudid) 1 mg IVP Q4H PRN PRN Reason: Pain, severe (8-10) Last Admin: 01/15/18 18:10 Dose: 1 mg Hydromorphone HCl (Dilaudid) 0.5 mg IVP Q3H PRN PRN Reason: Pain, moderate (4-7) Last Admin: 01/16/18 11:22 Dose: 0.5 mg Nitroglycerin/Dextrose (Nitroglycerin 50 Mg/250 Ml D5w) 50 mg in 250 mls @ 6 mls/hr IV .Q24H PRN; Protocol; 20 MCG/MIN PRN Reason: hypertension SBP>160 Last Titration: 01/16/18 12:43 Dose: 15 mcg/min, 4.5 mls/hr Metronidazole (Flagyl) 500 mg in 100 mls @ 100 mls/hr IVPB Q8 [facility] PRN Reason: Protocol Last Admin: 01/15/18 23:00 Dose: 100 mls/hr Levofloxacin/Dextrose (Levaquin 500mg) 500 mg in 100 mls @ 100 mls/hr IVPB DAILY [facility] PRN Reason: Protocol Last Admin: 01/16/18 12:07 Dose: 100 mls/hr Sodium Chloride (Sodium Chloride 0.9%) 1,000 mls @ 100 mls/hr IV .Q10H [facility] Stop: 01/16/18 14:00 Last Admin: 01/16/18 09:35 Dose: 100 mls/hr Insulin Human Regular (Humulin R Low) 0 units SC Q6 [facility] PRN Reason: Protocol Last Admin: 01/16/18 12:12 Dose: Not Given Pantoprazole Sodium (Protonix Inj) 40 mg IVP 0600 [facility] - Labs Labs: 01/16/18 05:25 01/16/18 05:25 PT 15.2 SECONDS (9.4-12.5) H 01/16/18 05:25 INR 1.31 01/16/18 05:25 APTT 28.0 Seconds (25.1-36.5) 01/16/18 05:25 - Constitutional Appears: Non-toxic, No Acute Distress - Head Exam Head Exam: NORMAL INSPECTION - Eye Exam Eye Exam: Normal appearance - ENT Exam ENT Exam: Mucous Membranes Moist - Respiratory Exam Respiratory Exam: NORMAL BREATHING PATTERN. absent: Accessory Muscle Use, Respiratory Distress - Cardiovascular Exam Cardiovascular Exam: REGULAR RHYTHM. absent: Bradycardia, Tachycardia - GI/Abdominal Exam GI & Abdominal Exam: Distended (obese), Guarding (voluntary), Soft, Tenderness ( RUQ TTP). absent: Firm, Rigid - Extremities Exam Extremities Exam: Normal Capillary Refill - Neurological Exam Neurological Exam: Alert, Awake, Oriented x3 - Psychiatric Exam Psychiatric exam: Normal Affect, Normal Mood - Skin Skin Exam: Dry, Intact, Normal Color, Warm Assessment and Plan - Assessment and Plan (Free Text) Assessment: 62 y/o M w/ acute cholecystitis - NPO/IVF - hold anti-platelet therapy - pain management - IV Abx - f/u Cardiology recs - possible OR vs percutaneous cholecystostomy tube - cont medical management - encourage OOB to chair/Amb/IS use Pt examined and discussed w Dr. Toby Perkins DO PGY3
[2018-01-16] MEDS ORDERED: Vancomycin 2 GM in Sodium Chloride 0.9% 500 ML IVPB ONE (13:03)
[2018-01-16] MEDS: metroNIDAZOLE IV 500 mg/100 ml 500 MG/100 ML BAG IVPB SCH ×2 (13:41→21:19)
[2018-01-16] MEDS: Meropenem IV 1 gm in NS 50 ML IVPB SCH ×2 (13:42→21:16)
[2018-01-16] MEDS: HYDROmorphone 1 mg/ml ISec IVP PRN (14:25)
--- NOTE | 2018-01-16 14:35 | PN ---
DATE: 01/16/2018 SUBJECTIVE: I saw him resting comfortably in the Intensive Care Unit. The pain is definitely better. He is sort of comfortable. He is very weak at this time. PHYSICAL EXAMINATION: VITAL SIGNS: He has a 98.8 temp, pulse is up to 122, 157/87 blood pressure, 22 respiratory rate, 94% O2 sat on room air. HEENT: His head is atraumatic, normocephalic. HEART: Regular rate, but very tachy. LUNGS: Decreased breath sounds. ABDOMEN: Right upper quadrant pain, it is tender with discomfort to palpation. He is morbid obese. EXTREMITIES: No edema. He had a cardiac cath and Dr. Sosa says he can go for surgery possibly on Friday. He is on Dilaudid, Flagyl, Levaquin nitroglycerin IV, Protonix and IV fluids. We are still trying to get that blood pressure down. It is 157/87, much better. LABORATORY DATA: He has a 24.7 white count, 15.2 hemoglobin, 45.6 hematocrit with 258 platelets. The white count is extremely high. 146 sodium, potassium 4, BUN 16, creatinine 1.4, GFR is 51, sugar is 212, calcium is 10, phosphorous 3.1, magnesium 2, total bili is 1, AST is 25, ALT is 28, alk phos 98, troponin I is 0.06 and 7.8 albumin. ASSESSMENT AND PLAN: He is being seen by the buckle attacher, machine veneer repairer, GI, Surgery. I am going to consult Infectious Disease for the elevated white count of 25,000. Yoshi Devine who is in trouble. He has a severe right upper quadrant pain, gallbladder issue, severe hypertension, it was malignant, still on nitroglycerin drip. Steve Boucher DO
--- NOTE | 2018-01-16 16:33 | CP.PCM.CON ---
History of Present Illness - History of Present Illness History of Present Illness: 62 year old male with PMH of obesity with BMI 37, CAD S/P CABG, HTN, DM, colon cancer [place] [facility] [place] after having abdominal pain which has been worsening over the past 3 days, especially after eating a fatty meal. This was associated with nausea and eating food makes it worse. He denies fever or chills, no vomiting or diarrhea, denies cough or colds, no headache or dizziness , no chest pain, no SOB, no dysphagia, no dysuria. CT A/P, ultrasound of the abdomen is suggestive of acalculous cholecystitis. Infectious diseases consult is requested to further evaluate and manage. Review of Systems - Review of Systems All systems: reviewed and no additional remarkable complaints except (as per HPI ) Past Patient History - Past Medical History & Family History Past Medical History?: Yes - Past Social History Smoking Status: Never Smoked - CARDIAC Hx Cardiac Disorders: Yes Hx Hypercholesterolemia: Yes Hx Hypertension: Yes Other/Comment: CAD s/p quadruple CABG, subsequent coronary stents - PULMONARY Hx Respiratory Disorders: No - NEUROLOGICAL Hx Neurological Disorder: No - HEENT Hx HEENT Problems: No - RENAL Hx Chronic Kidney Disease: No - ENDOCRINE/METABOLIC Hx Endocrine Disorders: Yes Hx Diabetes Mellitus Type 2: Yes - HEMATOLOGICAL/ONCOLOGICAL Hx Blood Disorders: No - INTEGUMENTARY Hx Dermatological Problems: No - MUSCULOSKELETAL/RHEUMATOLOGICAL Hx Musculoskeletal Disorders: No Hx Falls: No - GASTROINTESTINAL Hx Gastrointestinal Disorders: Yes (colon cancer 2015 s/p resection) - GENITOURINARY/GYNECOLOGICAL Hx Genitourinary Disorders: No - PSYCHIATRIC Hx Psychophysiologic Disorder: No Hx Substance Use: No - SURGICAL HISTORY Hx Surgeries: Yes Hx Orthopedic Surgery: Yes (knee arthrosctopy) Other/Comment: coronary stents, partial colon resection Meds Allergies/Adverse Reactions: Allergies Allergy/AdvReac Type Severity Reaction Status Date / Time lidocaine AdvReac COUGH Verified 01/15/18 18:13 - Medications Medications: Current Medications Hydromorphone HCl (Dilaudid) 1 mg IVP Q4H PRN PRN Reason: Pain, severe (8-10) Last Admin: 01/15/18 18:10 Dose: 1 mg Hydromorphone HCl (Dilaudid) 0.5 mg IVP Q3H PRN PRN Reason: Pain, moderate (4-7) Last Admin: 01/16/18 11:22 Dose: 0.5 mg Nitroglycerin/Dextrose (Nitroglycerin 50 Mg/250 Ml D5w) 50 mg in 250 mls @ 6 mls/hr IV .Q24H PRN; Protocol; 20 MCG/MIN PRN Reason: hypertension SBP>160 Last Titration: 01/16/18 12:43 Dose: 15 mcg/min, 4.5 mls/hr Metronidazole (Flagyl) 500 mg in 100 mls @ 100 mls/hr IVPB Q8 [facility] PRN Reason: Protocol Last Admin: 01/15/18 23:00 Dose: 100 mls/hr Sodium Chloride (Sodium Chloride 0.9%) 1,000 mls @ 100 mls/hr IV .Q10H [facility] Stop: 01/16/18 14:00 Last Admin: 01/16/18 09:35 Dose: 100 mls/hr Meropenem (Merrem Iv 1 Gm Premix) 50 mls @ 100 mls/hr IVPB Q12 [facility] PRN Reason: Protocol Vancomycin HCl 2 gm/ Sodium (Chloride) 500 mls @ 170 mls/hr IVPB ONCE ONE PRN Reason: Protocol Stop: 01/16/18 15:59 Insulin Human Regular (Humulin R Low) 0 units SC Q6 [facility] PRN Reason: Protocol Last Admin: 01/16/18 12:12 Dose: Not Given Pantoprazole Sodium (Protonix Inj) 40 mg IVP 0600 [facility] Physical Exam - Constitutional Appears: Chronically Ill - Head Exam Head Exam: NORMAL INSPECTION - Respiratory Exam Respiratory Exam: Decreased Breath Sounds - Cardiovascular Exam Cardiovascular Exam: +S1, +S2 - GI/Abdominal Exam GI & Abdominal Exam: Soft. absent: Guarding, Rebound, Rigid Results - Vital Signs Recent Vital Signs: Last Vital Signs Temp 98.8 F 01/16/18 12:14 Pulse 114 H 01/16/18 12:14 Resp 16 01/16/18 12:14 BP 166/82 H 01/16/18 12:14 Pulse Ox 94 L 01/16/18 11:41 - Labs Result Diagrams: 01/16/18 05:25 01/16/18 05:25 Labs: Laboratory Results - last 24 hr 01/15/18 01/15/18 01/15/18 15:07 15:07 17:24 WBC RBC Hgb Hct MCV MCH MCHC RDW Plt Count MPV Gran % Lymph % (Auto) [place] % (Auto) Eos % (Auto) Baso % (Auto) Gran # Lymph # (Auto) [place] # (Auto) Eos # (Auto) Baso # (Auto) PT INR APTT Sodium Potassium Chloride Carbon Dioxide Anion Gap BUN Creatinine Est GFR ( Amer) Est GFR (Non-Af Amer) POC Glucose (mg/dL) 193 H Random Glucose Lactic Acid 2.4 H Calcium Phosphorus Magnesium Total Bilirubin AST ALT Alkaline Phosphatase Troponin I 0.06 Total Protein Albumin Globulin Albumin/Globulin Ratio Amylase 94 01/15/18 01/15/18 01/16/18 21:37 22:31 05:25 WBC 24.7 H D RBC 5.12 Hgb 15.2 Hct 45.6 MCV 89.1 MCH 29.7 MCHC 33.3 RDW 14.1 Plt Count 258 MPV 12.7 H Gran % 79.4 H Lymph % (Auto) 7.7 L [place] % (Auto) 12.8 H Eos % (Auto) 0.0 L Baso % (Auto) 0.1 Gran # 19.61 H Lymph # (Auto) 1.9 [place] # (Auto) 3.2 H Eos # (Auto) 0.0 Baso # (Auto) 0.03 PT INR APTT Sodium Potassium Chloride Carbon Dioxide Anion Gap BUN Creatinine Est GFR ( Amer) Est GFR (Non-Af Amer) POC Glucose (mg/dL) 211 H Random Glucose Lactic Acid Calcium Phosphorus Magnesium Total Bilirubin AST ALT Alkaline Phosphatase Troponin I 0.06 Total Protein Albumin Globulin Albumin/Globulin Ratio Amylase 01/16/18 01/16/18 01/16/18 05:25 05:25 12:11 WBC RBC Hgb Hct MCV MCH MCHC RDW Plt Count MPV Gran % Lymph % (Auto) [place] % (Auto) Eos % (Auto) Baso % (Auto) Gran # Lymph # (Auto) [place] # (Auto) Eos # (Auto) Baso # (Auto) PT 15.2 H INR 1.31 APTT 28.0 Sodium 146 Potassium 4.0 Chloride 110 H Carbon Dioxide 25 Anion Gap 15 BUN 16 Creatinine 1.4 Est GFR ( Amer) > 60 Est GFR (Non-Af Amer) 51 POC Glucose (mg/dL) 229 H Random Glucose 212 H Lactic Acid Calcium 10.0 Phosphorus 3.1 Magnesium 2.0 Total Bilirubin 1.0 AST 25 ALT 28 Alkaline Phosphatase 98 Troponin I Total Protein 7.8 Albumin 4.0 Globulin 3.8 Albumin/Globulin Ratio 1.1 Amylase Assessment & Plan - Assessment and Plan (Free Text) Plan: Assessment Severe sepsis with acute renal failure due to probable acute cholecystitis obesity with BMI 37 CAD S/P CABG HTN DM colon cancer Plan Started with a dose of IV Vancomycin and renally-adjusted Merrem pending blood cx; surgery is planning possible cholecystostomy and will await for this plan - discussed with family will monitor clinically
[2018-01-16] MEDS: Nitroglycerin 50mg in D5W 50 MG/250 ML BOTTLE IV PRN (16:39)
[2018-01-17] MEDS: HYDROmorphone 0.5 mg/0.5 ml ISec IVP PRN ×4 (01:17→21:56)
[2018-01-17] MEDS: metroNIDAZOLE IV 500 mg/100 ml 500 MG/100 ML BAG IVPB SCH ×3 (05:04→21:08)
[2018-01-17 06:14] LABS: BASO # 0.03 K/mm3 (0.0-2.0); BASO % 0.2 % (0.0-3.0); EOS % 0.1 % (1.5-5.0); GRAN % 77.9 % (50.0-68.0); HEMOGLOBIN 13.2 g/dL (14.0-18.0); LYMPH # 1.9 (1.2-3.4); LYMPH % 10.1 % (22.0-35.0); MEAN CELL VOLUME 90.8 fl (80.0-105.0); MEAN CORPUSCULAR HEMOGLOBIN 29.5 pg (25.0-35.0); MEAN CORPUSCULAR HGB CONC 32.5 g/dl (31.0-37.0); MEAN PLATELET VOLUME 12.7 fl (7.0-11.0); MONO # 2.2 (0.1-0.6); MONO % 11.7 % (1.0-6.0); RBC 4.47 10^6/uL (3.5-6.1); RED CELL DISTRIBUTION WIDTH 14.6 % (11.5-14.5); WHITE BLOOD COUNT 19.2 10^3/ul (4.5-11.0)
[2018-01-17 06:30] LABS: ALBUMIN 3.6 g/dL (3.0-4.8)
[2018-01-17] MEDS: Insulin Reg-LOW-Coverage SC SCH ×4 (06:45→19:15)
[2018-01-17] MEDS ORDERED: Iohexol 240 (50 ml) ONE (08:50)
[2018-01-17] MEDS ORDERED: Bupivacaine 0.5% Inj(30mL) ONE (08:50)
[2018-01-17] MEDS ORDERED: Propofol 10 mg/ml Inj (20 ML) ONE (09:04)
[2018-01-17] MEDS ORDERED: Succinylcholine 200 mg/10 ml Inj IV ONE (09:05)
[2018-01-17] MEDS ORDERED: Etomidate 20 mg/10ml Inj IV ONE (09:05)
[2018-01-17] MEDS ORDERED: Sevoflurane - Inhalation Anesthetic Liq (250 ml) ONE (09:05)
[2018-01-17] MEDS ORDERED: Rocuronium 10 mg/ml (5 ml) ONE ×2 (09:05→09:54)
[2018-01-17] MEDS ORDERED: Esmolol 100 mg/10ml Inj IV ONE (09:24)
--- NOTE | 2018-01-17 09:40 | PN ---
DATE: 01/17/2018 SUBJECTIVE: The patient is seen earlier this morning in 128, bed 3. The patient's family member is asleep in a chair next to the patient. The patient had an uneventful night. Did have a temperature earlier this morning, late last night. OBJECTIVE: VITAL SIGNS: On exam, temperature is 100.9, blood pressure is 116/50, respiratory rate of 18, heart rate of 115. HEENT: Examination is unremarkable. NECK: Supple. LUNGS: Have decreased breath sounds. HEART: Normal S1, S2. ABDOMEN: Soft, nontender. DATA: Laboratory examination reveals a white count of 19,000, hemoglobin of 13. Coagulation is noted. Chemistries reveals a BUN of 22, creatinine of 1.6. Microbiology is reviewed. ASSESSMENT AND PLAN: This is a 62-year-old male with obesity, body mass index of 37, history of coronary artery disease, hypertension, diabetes, colon cancer admitted with abdominal pain and severe sepsis, acute renal failure, probable acute cholecystitis, on meropenem with cultures pending. Review of orders confirms the meropenem to be active. LFT is elevated this morning. Dr. Luis's note is reviewed. Possible OR. We will follow with you. Сергей Mcclellan MD
[2018-01-17] MEDS ORDERED: Neostigmine Methylsulfate 3mg/3ml Syringe IV ONE (11:08)
[2018-01-17] MEDS ORDERED: HYDROmorphone 0.5 mg/0.5 ml ISec IVP PRN (12:34)
[2018-01-17] MEDS ORDERED: HYDROmorphone 1 mg/ml ISec IVP STA (12:39)
--- NOTE | 2018-01-17 12:39 | PCM.SURG1 ---
Surgeon's Initial Post Op Note - Surgeon's Notes Surgeon: Dr. Luis Boilers And Pressure Vessels Inspector: Dr. Plunkett PGY3, Dr. Alva PGY1 Type of Anesthesia: General Endo Anesthesia Administered By: Dr. Carroll Pre-Operative Diagnosis: Acalculous Cholecystitis Operative Findings: See operative dictation Post-Operative Diagnosis: Necrotic Acalculous Cholecystitis Operation Performed: Laparoscopic converted to open partial cholecystectomy with placement of cholecystostomy tube Specimen/Specimens Removed: Gallbladder fundus and body Estimated Blood Loss: EBL {In ML}: 50 Blood Products Given: N/A Drains Used: No Drains Post-Op Condition: Fair Date of Surgery/Procedure: 01/17/18 Time of Surgery/Procedure: 12:38
[2018-01-17] MEDS ORDERED: HYDROmorphone 1 mg/ml ISec IVP ONE (12:42)
[2018-01-17] MEDS ORDERED: Lactated Ringer's 1,000 ML IV SCH (12:45)
[2018-01-17] MEDS ORDERED: HYDROmorphone 1 mg/ml ISec ONE (12:45)
[2018-01-17] MEDS: Meropenem IV 1 gm in NS 50 ML IVPB SCH ×2 (13:13→14:03)
[2018-01-17] MEDS ORDERED: HYDROmorphone 0.5 mg/0.5 ml ISec IVP ONE (13:22)
[2018-01-17] MEDS ORDERED: HYDROmorphone 0.5 mg/0.5 ml ISec ONE (13:22)
[2018-01-17] MEDS: HYDROmorphone 0.2 mg/ml (30ml) 30 ML IV PRN (14:35)
--- NOTE | 2018-01-17 14:58 | CP.PCM.PN ---
Subjective - Date & Time of Evaluation Date of Evaluation: 01/17/18 Time of Evaluation: 12:30 - Subjective Subjective: Patient seen and examined at bedside, s/p OR cholecystectomy. Comfortable, complaining of mild abd pain. Objective - Vital Signs/Intake and Output Vital Signs (last 24 hours): Temp Pulse Resp BP Pulse Ox 99 F 112 H 31 H 146/81 99 01/17/18 13:30 01/17/18 13:30 01/17/18 13:30 01/17/18 13:30 01/17/18 13:30 Intake and Output: 01/17/18 01/17/18 06:59 18:59 Intake Total 1858 Output Total 1100 Balance 758 - Medications Medications: Current Medications Carvedilol (Coreg) 6.25 mg PO BID [facility] Hydralazine HCl (Apresoline) 10 mg PO BID [facility] Hydromorphone HCl (Dilaudid) 1 mg IVP Q4H PRN PRN Reason: Pain, severe (8-10) Last Admin: 01/16/18 14:25 Dose: 1 mg Hydromorphone HCl (Dilaudid) 0.5 mg IVP Q3H PRN PRN Reason: Pain, moderate (4-7) Last Admin: 01/17/18 05:41 Dose: 0.5 mg Nitroglycerin/Dextrose (Nitroglycerin 50 Mg/250 Ml D5w) 50 mg in 250 mls @ 6 mls/hr IV .Q24H PRN; Protocol; 20 MCG/MIN PRN Reason: hypertension SBP>160 Last Titration: 01/17/18 06:54 Dose: 20 mcg/min, 6 mls/hr Metronidazole (Flagyl) 500 mg in 100 mls @ 100 mls/hr IVPB Q8 [facility] PRN Reason: Protocol Last Admin: 01/17/18 13:51 Dose: 100 mls/hr Hydromorphone HCl (Dilaudid 0.2 Mg/Ml [employer]) 30 mls @ 0 mls/hr IV PRN PRN; Protocol; Per Protocol PRN Reason: LEAD JAVASCRIPT ENGINEER PER MD ORDER Last Admin: 01/17/18 14:35 Dose: 1 mls/hr Meropenem (Merrem Iv 1 Gm Premix) 50 mls @ 100 mls/hr IVPB Q12H [facility] PRN Reason: Protocol Last Admin: 01/17/18 14:03 Dose: Not Given Sodium Chloride (Sodium Chloride 0.45%) 1,000 mls @ 100 mls/hr IV .Q10H [facility] Insulin Human Regular (Humulin R Low) 0 units SC Q6 [facility] PRN Reason: Protocol Last Admin: 01/17/18 13:12 Dose: Not Given Isosorbide Dinitrate (Isordil) 5 mg PO BID [facility] Ondansetron HCl (Zofran Inj) 4 mg IVP ONCE PRN PRN Reason: Nausea/Vomiting Pantoprazole Sodium (Protonix Inj) 40 mg IVP 0600 [facility] Last Admin: 01/17/18 05:04 Dose: 40 mg - Labs Labs: 01/17/18 05:00 01/17/18 05:00 PT 15.2 SECONDS (9.4-12.5) H 01/16/18 05:25 INR 1.31 01/16/18 05:25 APTT 28.0 Seconds (25.1-36.5) 01/16/18 05:25 - Constitutional Appears: Non-toxic, No Acute Distress - Head Exam Head Exam: NORMAL INSPECTION - Eye Exam Eye Exam: Normal appearance - ENT Exam ENT Exam: Mucous Membranes Moist - Neck Exam Neck Exam: Full ROM - Respiratory Exam Respiratory Exam: Clear to Ausculation Bilateral, NORMAL BREATHING PATTERN - Cardiovascular Exam Cardiovascular Exam: REGULAR RHYTHM, +S1 - GI/Abdominal Exam GI & Abdominal Exam: Soft, Tenderness, Normal Bowel Sounds - Neurological Exam Neurological Exam: Alert, Awake - Psychiatric Exam Psychiatric exam: Normal Affect - Skin Skin Exam: Normal Color, Warm Assessment and Plan - Assessment and Plan (Free Text) Assessment: Patient is 62yo male w/PMHx CAD/CABG and HTN admitted with 3 days of abd pain, acalculous cholecystitis, and uncontrolled HTN. Patient underwent open partial cholecystectomy, with cholecystosmy drain in the OR Currently afebrile, BP stable, comfortable in NAD. HTN Urgency CAD Acalculous cholecystitis s/p open partial cholecystectomy Hypernatremia Recommend: - supp o2 as needed, duonebs PRN, IS - Broad spectrum Abx, cover for abdominal etiology, as per ID - follow up surgery - BP control - start on 1/2NS - NPO - ASA, Brillinta - GI ppx - DVT ppx, HSQ - Monitor in MICU
[2018-01-17] MEDS: Sodium Chloride 0.45% 1,000 ML IV SCH (15:11)
--- NOTE | 2018-01-17 19:22 | PN ---
DATE: 01/17/2018 SUBJECTIVE: He is from [place], from a cruise ship. He had a laparoscopic cholecystectomy, which ended up being an open partial cholecystectomy. Apparently, there were a lot of necrotic areas in the abdomen and there was placement of a cholecystotomy tube. He is on multiple IV antibiotics. He is on Merrem, IV fluids, Dilaudid, Flagyl, insulin coverage, lactated Ringer's, nitroglycerin, Protonix, Zofran. I saw him in recovery. PHYSICAL EXAMINATION: VITAL SIGNS: He has a 99 temperature, 112 pulse, 146/81 blood pressure, 31 respiratory rate, 99% O2 sat on 3 liters. HEENT: Head is atraumatic, normocephalic. HEART: Regular rate. LUNGS: Decreased breath sounds but clear. ABDOMEN: Decreased bowel sounds, is bandaged up secondary to the surgery. EXTREMITIES: Trace edema. LABORATORY DATA: He has a 152 sodium, potassium 3.9, BUN 22, creatinine 0.6, GFR is 44, sugar is 186, calcium is 10. Phosphorus 2.3, magnesium 2.5. Total bili is 1.3, AST is 114, ALT is 150, alk phos 167, total protein 7.3. White count is 19.2, a little better from 24.7. Hemoglobin 13.2, hematocrit 40.6, platelets of 208. He is having a very rough go. He is being seen by Surgery, Infectious Disease, the rocket engine mechanic, Cardiology, GI. Continue with aggressive treatment and care on [facility]. We will check his labs tomorrow. Continue with aggressive IV antibiotics and fluids. Discussed with the at length. Steve Boucher DO
[2018-01-18] MEDS: Insulin Reg-LOW-Coverage SC SCH ×2 (01:00→06:00)
[2018-01-18] MEDS: Sodium Chloride 0.45% 1,000 ML IV SCH (01:10)
[2018-01-18] MEDS: HYDROmorphone 0.5 mg/0.5 ml ISec IVP PRN ×6 (01:11→22:36)
[2018-01-18] MEDS: Meropenem IV 1 gm in NS 50 ML IVPB SCH (01:19)
--- NOTE | 2018-01-18 02:05 | PN ---
DATE: 01/17/2018 LOCATION: Patient in ICU 128, bed 3. This progress note is being written on behalf of Dr. Sosa whom I am covering. REASON FOR THIS FOLLOWUP: Coronary artery disease, cholecystitis, hypertension, diabetes mellitus. PRESENT HISTORY: Patient was on cruise ship, has 3 days of continuous abdominal pain and found to have cholecystitis. Patient had partial cholecystectomy today with cholecystostomy tube insertion. Patient is lying flat in bed without chest pain, shortness of breath or palpitation. Patient's cardiac cath on 01/16/2018 showed triple vessel disease, patent stent in LAD, patent saphenous vein graft to posterolateral branch of the circumflex, LV ejection fraction is 65% to 70%. PHYSICAL EXAMINATION: VITAL SIGNS: Blood pressure 169/98, respirations 12, pulse 108, temperature 99.1. HEENT: Head is normocephalic. Eyes: Pupils normal. Conjunctivae normal. Nose and throat: Normal. NECK: JVP low. Carotids equal. THORAX: AP diameter normal. LUNGS: Clear. CARDIOVASCULAR: S1 and S2. ABDOMEN: Surgery as mentioned. PERIPHERIES: No clubbing, no cyanosis. LABORATORY DATA: WBC 19.2, hemoglobin 13.2, hematocrit 40.6, platelets 208. Sodium 152, potassium 3.9, BUN 22, creatinine 1.6. Random sugar 189, phosphorus 2.3, magnesium 2.5. AST 114, ALT 150, alkaline phosphatase 167, total protein 7.3, albumin 3.6. Prothrombin time 15.2 with INR 1.31, PTT 28. DIAGNOSES: Acalculous cholecystitis, uncontrolled hypertension, coronary artery disease status post coronary artery bypass graft and has stent insertion, status post cath 01/16/2018 as described above, obesity, diabetes mellitus, status post partial cholecystectomy with cholecystotomy drain insertion, hypernatremia. PLAN: Continue IV fluid, hydralazine 25 mg p.o. four times a day, carvedilol 6.25 b.i.d., metronidazole 500 mg IV every 8 hours, insulin as ordered, isosorbide mononitrate 30 daily, meropenem 50 mL IV every 12 hours, Protonix 40 mg IV daily. Partial blood pressure elevation may be related to pain postsurgical. We will continue present therapy. We will monitor closely. We will repeat labs in the morning and we will follow with you. Yousif Barnhart MD [facility] # [id number]
[2018-01-18] MEDS: metroNIDAZOLE IV 500 mg/100 ml 500 MG/100 ML BAG IVPB SCH (05:06)
[2018-01-18 06:33] LABS: BASO # 0.03 K/mm3 (0.0-2.0); BASO % 0.2 % (0.0-3.0); EOS % 0.2 % (1.5-5.0); GRAN # 12.15 (1.4-6.5); GRAN % 75.4 % (50.0-68.0); HEMOGLOBIN 12.3 g/dL (14.0-18.0); LYMPH # 1.9 (1.2-3.4); MEAN CELL VOLUME 94.3 fl (80.0-105.0); MEAN CORPUSCULAR HEMOGLOBIN 29.3 pg (25.0-35.0); MEAN CORPUSCULAR HGB CONC 31.1 g/dl (31.0-37.0); MEAN PLATELET VOLUME 12.6 fl (7.0-11.0); MONO % 12.2 % (1.0-6.0); RBC 4.2 10^6/uL (3.5-6.1); RED CELL DISTRIBUTION WIDTH 15.4 % (11.5-14.5); WHITE BLOOD COUNT 16.1 10^3/ul (4.5-11.0)
[2018-01-18] MEDS: HYDROmorphone 0.2 mg/ml (30ml) 30 ML IV PRN (08:13)
[2018-01-18 08:38] LABS: ALB/GLOB RATIO 0.9 (1.1-1.8); ALBUMIN 3.3 g/dL (3.0-4.8); CALCIUM 9.3 mg/dL (8.4-10.5)
--- NOTE | 2018-01-18 09:16 | CP.PCM.PN ---
Subjective - Date & Time of Evaluation Date of Evaluation: 01/18/18 Time of Evaluation: 09:12 - Subjective Subjective: General Surgery Progress Note for Dr. Luis This 62M was seen and examined this AM at bedside. Overnight the Pt had a Tmax of 101.5, he remains tachycardic which has been his baseline. He complains of pain at the incision. He has been using both his TAKE AWAY ATTENDANT and his PRN dilaudid. He denies flatus or BM. GAYATHRI drain put out 130 sanguinous output since the OR and the brent tube 45cc sanguinous output since the OR as well. Objective - Vital Signs/Intake and Output Vital Signs (last 24 hours): Temp Pulse Resp BP Pulse Ox 101.1 F H 120 H 12 120/74 94 L 01/18/18 05:57 01/18/18 06:00 01/17/18 18:37 01/18/18 05:01 01/18/18 05:00 Intake and Output: 01/18/18 01/18/18 06:59 18:59 Intake Total 1600 30 Output Total 925 Balance 675 30 - Medications Medications: Current Medications Acetaminophen (Tylenol 325mg Tab) 650 mg PO Q6H PRN PRN Reason: Fever >100.4 F Last Admin: 01/18/18 05:57 Dose: 650 mg Carvedilol (Coreg) 12.5 mg PO BID [facility] Hydralazine HCl (Apresoline) 25 mg PO QID [facility] Last Admin: 01/17/18 21:07 Dose: 25 mg Hydromorphone HCl (Dilaudid) 0.5 mg IVP Q2H PRN PRN Reason: Pain, moderate (4-7) Last Admin: 01/18/18 06:01 Dose: 0.5 mg Nitroglycerin/Dextrose (Nitroglycerin 50 Mg/250 Ml D5w) 50 mg in 250 mls @ 6 mls/hr IV .Q24H PRN; Protocol; 20 MCG/MIN PRN Reason: hypertension SBP>160 Last Titration: 01/17/18 09:00 Dose: 0 mcg/min, 0 mls/hr Metronidazole (Flagyl) 500 mg in 100 mls @ 100 mls/hr IVPB Q8 [facility] PRN Reason: Protocol Last Admin: 01/18/18 05:06 Dose: 100 mls/hr Hydromorphone HCl (Dilaudid 0.2 Mg/Ml Internist) 30 mls @ 0 mls/hr IV PRN PRN; Protocol; Per Protocol PRN Reason: TAKE AWAY ATTENDANT PER MD ORDER Last Admin: 01/18/18 08:13 Dose: 1 mls/hr Meropenem (Merrem Iv 1 Gm Premix) 50 mls @ 100 mls/hr IVPB Q12H [facility] PRN Reason: Protocol Last Admin: 01/18/18 01:19 Dose: 100 mls/hr Sodium Chloride (Sodium Chloride 0.45%) 1,000 mls @ 100 mls/hr IV .Q10H [facility] Last Admin: 01/18/18 01:10 Dose: 100 mls/hr Acetaminophen (Ofirmev) 1,000 mg in 100 mls @ 400 mls/hr IVPB Q6H PRN PRN Reason: Pain, moderate (4-7) Stop: 01/20/18 06:51 Last Admin: 01/18/18 06:57 Dose: 400 mls/hr Insulin Human Regular (Humulin R Low) 0 units SC Q6 [facility] PRN Reason: Protocol Last Admin: 01/18/18 06:00 Dose: Not Given Isosorbide Mononitrate (Imdur Er) 30 mg PO DAILY [facility] Last Admin: 01/17/18 18:22 Dose: 30 mg Ondansetron HCl (Zofran Inj) 4 mg IVP ONCE PRN PRN Reason: Nausea/Vomiting Pantoprazole Sodium (Protonix Inj) 40 mg IVP 0600 [facility] Last Admin: 01/18/18 05:07 Dose: 40 mg - Labs Labs: 01/18/18 05:00 01/18/18 05:00 PT 15.2 SECONDS (9.4-12.5) H 01/16/18 05:25 INR 1.31 01/16/18 05:25 APTT 28.0 Seconds (25.1-36.5) 01/16/18 05:25 - Constitutional Appears: Non-toxic, No Acute Distress - Head Exam Head Exam: ATRAUMATIC, NORMOCEPHALIC - Eye Exam Eye Exam: EOMI - ENT Exam ENT Exam: Mucous Membranes Moist - Respiratory Exam Respiratory Exam: NORMAL BREATHING PATTERN - Cardiovascular Exam Cardiovascular Exam: Tachycardia, +S1, +S2 - GI/Abdominal Exam GI & Abdominal Exam: Soft, Tenderness. absent: Distended, Firm, Guarding, Rigid Additional comments: Dressings clean dry and intact - Neurological Exam Neurological Exam: Alert, Awake - Psychiatric Exam Psychiatric exam: Normal Affect, Normal Mood - Skin Skin Exam: Dry, Intact Assessment and Plan - Assessment and Plan (Free Text) Assessment: 62M with acalculous cholecystitis is is POD#1 s/p lap converted to open subtotal cholecystectomy with cholecystostomy tube placement. Incentive spirometer Pain control Monitor drain outputs NPO except meds IVF OOB to chair Further recs per Dr. Toby Plunkett PGY3
--- NOTE | 2018-01-18 11:07 | PN ---
DATE: 01/18/2018 LOCATION: The patient in ICU 128, bed 3. This progress note is being written on behalf of Dr. Sosa whom I am covering. REASON FOR CONSULT AND FOLLOWUP: Coronary artery disease, cholecystitis, hypertension, diabetes mellitus, obesity. The patient is postop for partial cholecystectomy and with cholecystostomy and tube insertion. SUBJECTIVE: The patient lying flat on bed without any chest pain, shortness of breath, palpitation. PHYSICAL EXAMINATION: VITAL SIGNS: Blood pressure is 120/74, respirations 18, temperature 101.1, pulse is about 120 per minute. HEENT: Head is normocephalic. Eyes: Pupils normal, conjunctivae normal. Nose and throat normal. NECK: JVP low, carotid equal. THORAX: AP diameter normal. CARDIOVASCULAR: S1, S2. LUNGS: Clear. ABDOMEN: Surgery as mentioned. PERIPHERIES: No clubbing, no cyanosis. LABORATORY DATA: WBC 16.1, hemoglobin 12.3, hematocrit 39.6, platelets 261. Sodium 155, potassium 4.1, BUN 36, creatinine 2.5, sugar 228. AST 145, ALT 131, alkaline phosphatase 131. Chest x-ray is being repeated today. DIAGNOSES: Acalculous cholecystitis; uncontrolled hypertension; coronary artery disease, status coronary artery bypass graft and stent insertion, status post cath on 01/16/2018, which showed triple vessel disease, patent stent in left anterior descending, patent saphenous vein graft to posterolateral branch of the circumflex, left ventricular ejection fraction 65 to 70%, diabetes mellitus, hypernatremia, renal dysfunction, severe sepsis. MEDICATIONS: The patient on carvedilol 6.25 mg b.i.d., now is being increased to 12.5 b.i.d.; metronidazole 500 mg IV every 8 hours; IV fluids; hydralazine 25 mg four times a day; meropenem IV every 12 hours; isosorbide mononitrate 30 mg p.o. daily. PLAN: Labs will be repeated in the morning. Dr. Sosa will follow up the patient starting tomorrow. Yousif Barnhart MD
[2018-01-18] MEDS ORDERED: Insulin Reg-HIGH-Coverage SC SCH ×2 (11:30→18:00)
--- NOTE | 2018-01-18 12:03 | CP.CCUPN ---
<Scott Esposito - Last Filed: 01/18/18 11:55> CCU Subjective - Physician Review Subjective (Free Text): 01/18/18 11:56 Scott Esposito DO PGY1 Internal Medicine Building Materials Sales Attendant - ICU Progress Note Patient was seen and examined at bedside this morning. Patient is POD#1 from lap brent converted to open subtotal cholecystectomy with cholecystostomy tube placement. Patient was febrile, overnight Tmax 101.1; tachycardic. However he voices no complaints other than abdominal tenderness this AM. Reports having good appetite however has not had any BM or Flatus. Pt. is still NPO except Rx this AM. Denies any chest pain, sob, cough, palpitations, n/v/d/c, headaches, dizziness. Remainder of 12 system ROS is otherwise negative. CCU Objective - Vital Signs / Intake & Output Vital Signs (Last 4 hours): Vital Signs Temp Pulse BP Pulse Ox 01/18/18 11:00 94 H 94/52 L 97 01/18/18 10:34 93 H 97/56 L 98 01/18/18 10:00 105 H 117/68 97 01/18/18 09:39 106 H 128/67 01/18/18 09:00 106 H 128/67 98 01/18/18 08:27 109 H 121/67 99 01/18/18 08:02 111 H 120/57 L 99 01/18/18 08:00 98.6 F 111 H 99 Intake and Output (Last 8hrs): Intake & Output 01/17/18 01/18/18 01/18/18 22:59 06:59 14:59 Intake Total 704 1600 30 Output Total 1107 890 Balance -403 710 30 Intake: IV 704 1500 30 0.5 ns 1200 Left Antecubital 704 abx 300 Oral 100 Output: Drainage 95 40 Abdomen 5 40 Medial Abdomen 90 Urine 1012 850 Urine, Voided 1012 850 Other: # Voids Urine, Voided 3 # Bowel Movements 0 - Physical Exam Head: Positive for: Atraumatic, Normocephalic Extroacular Muscles: Positive for: EOMI Conjunctiva: Positive for: Normal Mouth: Positive for: Dry Nose (External): Positive for: Atraumatic Nose (Internal): Positive for: No Active Bleeding Neck: Positive for: Normal Range of Motion Respiratory/Chest: Positive for: Clear to Auscultation, Good Air Exchange. Negative for: Respiratory Distress, Accessory Muscle Use Cardiovascular: Positive for: Normal S1, S2, Tachycardic. Negative for: Murmurs Abdomen: Positive for: Tenderness (RLQ/ R sided; non peritoneal mostly in area of drain), Distention, Scars (sternotomy scar), Other (Abdomen distended, tympanic; dressing CDI; Bowel sounds hypoactive). Negative for: Peritoneal Signs, Rebound, Guarding, McBurney's Point Tender, Rovsing's Sign Present Upper Extremity: Positive for: Normal Inspection, NORMAL PULSES. Negative for: Cyanosis, Edema Lower Extremity: Positive for: Normal Inspection, NORMAL PULSES, Other (Distal pulses 2+ BL Dorsalis Pedis). Negative for: Edema, CALF TENDERNESS Neurological: Positive for: GCS=15, Speech Normal, Motor Func Grossly Intact Skin: Positive for: Warm, Dry, Normal Color. Negative for: Rashes Lymphatic: Negative for: Cervical Adenopathy Psychiatric: Positive for: Alert, Oriented x 3, Normal Insight, Normal Concentration - Medications Active Medications: Active Medications Generic Name Dose Route Start Last Admin Trade Name Freq PRN Reason Stop Dose Admin Acetaminophen 650 mg 01/18/18 05:47 01/18/18 05:57 Tylenol 325mg Tab PO 650 mg Q6H PRN Administration Fever >100.4 F Carvedilol 12.5 mg 01/18/18 10:00 01/18/18 09:39 Coreg PO 12.5 mg BID [facility] Administration Heparin Sodium (Porcine) 5,000 units 01/18/18 14:00 Heparin SC Q8 [facility] Protocol Hydralazine HCl 25 mg 01/17/18 18:00 01/18/18 11:18 Apresoline PO Not Given QID [facility] Hydromorphone HCl 0.5 mg 01/17/18 15:50 01/18/18 06:01 Dilaudid IVP 0.5 mg Q2H PRN Administration Pain, moderate (4-7) Hydromorphone HCl 30 mls @ 0 mls/hr 01/17/18 12:40 01/18/18 08:13 Dilaudid 0.2 Mg/Ml Car Cleaning Supervisor IV 1 mls/hr PRN PRN 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 Protocol Per Protocol Acetaminophen 1,000 mg in 100 mls @ 400 mls/hr 01/18/18 06:50 01/18/18 06:57 Ofirmev IVPB 01/20/18 06:51 400 mls/hr Q6H PRN Administration Pain, moderate (4-7) Meropenem 500 mg/ Sodium 50 mls @ 100 mls/hr 01/18/18 14:00 Chloride IVPB 01/27/18 14:01 Q8 [facility] Protocol Dextrose 1,000 mls @ 125 mls/hr 01/18/18 11:00 01/18/18 11:19 Dextrose 5% In Water 1000 Ml IV 125 mls/hr .Q8H [facility] Administration Insulin Detemir 10 unit 01/18/18 22:00 Levemir SC HS [facility] Insulin Human Regular 0 units 01/16/18 00:00 01/18/18 06:00 Humulin R Low SC Not Given Q6 [facility] Protocol Insulin Human Regular 0 units 01/18/18 11:30 01/18/18 11:39 Humulin R High SC 4 unit ACHS [facility] Administration Protocol Isosorbide Mononitrate 30 mg 01/17/18 18:00 01/18/18 11:19 Imdur Er PO Not Given DAILY [facility] Ondansetron HCl 4 mg 01/17/18 12:34 Zofran Inj IVP ONCE PRN Nausea/Vomiting Pantoprazole Sodium 40 mg 01/17/18 06:00 01/18/18 05:07 Protonix Inj IVP 40 mg 0600 [facility] Administration - Patient Studies Lab Studies: Microbiology Studies 01/16/18 21:40 Blood Culture - Preliminary Blood NO GROWTH AFTER 24 HOURS 01/16/18 21:40 Blood Culture - Preliminary Blood NO GROWTH AFTER 24 HOURS 01/15/18 20:00 MRSA Culture (Admit) - Final Naris MRSA NOT DETECTED Lab Studies 01/18/18 01/18/18 01/18/18 Range/Units 06:15 05:00 05:00 WBC 16.1 H (4.5-11.0) 10^3/ul RBC 4.20 (3.5-6.1) 10^6/uL Hgb 12.3 L (14.0-18.0) g/dL Hct 39.6 L (42.0-52.0) % MCV 94.3 D (80.0-105.0) fl MCH 29.3 (25.0-35.0) pg MCHC 31.1 (31.0-37.0) g/dl RDW 15.4 H (11.5-14.5) % Plt Count 261 (120.0-450.0) 10^3/uL MPV 12.6 H (7.0-11.0) fl Gran % 75.4 H (50.0-68.0) % Lymph % (Auto) 12.0 L (22.0-35.0) % [place] % (Auto) 12.2 H (1.0-6.0) % Eos % (Auto) 0.2 L (1.5-5.0) % Baso % (Auto) 0.2 (0.0-3.0) % Gran # 12.15 H (1.4-6.5) Lymph # (Auto) 1.9 (1.2-3.4) [place] # (Auto) 2.0 H (0.1-0.6) Eos # (Auto) 0.0 (0.0-0.7) Baso # (Auto) 0.03 (0.0-2.0) K/mm3 Sodium 155 H (132-148) mmol/L Potassium 4.1 (3.6-5.0) mmol/L Chloride 121 H (98-107) mmol/L Carbon Dioxide 28 (21-33) mmol/L Anion Gap 12 (10-20) BUN 36 H (7-21) mg/dL Creatinine 2.5 H (0.8-1.5) mg/dl Est GFR ( Amer) 32 Est GFR (Non-Af Amer) 26 POC Glucose (mg/dL) 228 H (65-110) mg/dL Random Glucose 244 H (70-110) mg/dL Calcium 9.3 (8.4-10.5) mg/dL Phosphorus 2.6 (2.5-4.5) mg/dL Magnesium 2.7 H (1.7-2.2) mg/dL Total Bilirubin 0.6 (0.2-1.3) mg/dL AST 145 H D (17-59) U/L ALT 131 H (7-56) U/L Alkaline Phosphatase 151 H (38-126) U/L Total Protein 6.8 (5.8-8.3) g/dL Albumin 3.3 (3.0-4.8) g/dL Globulin 3.5 gm/dL Albumin/Globulin Ratio 0.9 L (1.1-1.8) 01/17/18 01/17/18 01/17/18 Range/Units 23:57 18:33 13:53 WBC (4.5-11.0) 10^3/ul RBC (3.5-6.1) 10^6/uL Hgb (14.0-18.0) g/dL Hct (42.0-52.0) % MCV (80.0-105.0) fl MCH (25.0-35.0) pg MCHC (31.0-37.0) g/dl RDW (11.5-14.5) % Plt Count (120.0-450.0) 10^3/uL MPV (7.0-11.0) fl Gran % (50.0-68.0) % Lymph % (Auto) (22.0-35.0) % [place] % (Auto) (1.0-6.0) % Eos % (Auto) (1.5-5.0) % Baso % (Auto) (0.0-3.0) % Gran # (1.4-6.5) Lymph # (Auto) (1.2-3.4) [place] # (Auto) (0.1-0.6) Eos # (Auto) (0.0-0.7) Baso # (Auto) (0.0-2.0) K/mm3 Sodium (132-148) mmol/L Potassium (3.6-5.0) mmol/L Chloride (98-107) mmol/L Carbon Dioxide (21-33) mmol/L Anion Gap (10-20) BUN (7-21) mg/dL Creatinine (0.8-1.5) mg/dl Est GFR ( Amer) Est GFR (Non-Af Amer) POC Glucose (mg/dL) 181 H 189 H 186 H (65-110) mg/dL Random Glucose (70-110) mg/dL Calcium (8.4-10.5) mg/dL Phosphorus (2.5-4.5) mg/dL Magnesium (1.7-2.2) mg/dL Total Bilirubin (0.2-1.3) mg/dL AST (17-59) U/L ALT (7-56) U/L Alkaline Phosphatase (38-126) U/L Total Protein (5.8-8.3) g/dL Albumin (3.0-4.8) g/dL Globulin gm/dL Albumin/Globulin Ratio (1.1-1.8) Laboratory Results - last 24 hr 01/17/18 01/17/18 01/17/18 13:53 18:33 23:57 WBC RBC Hgb Hct MCV MCH MCHC RDW Plt Count MPV Gran % Lymph % (Auto) [place] % (Auto) Eos % (Auto) Baso % (Auto) Gran # Lymph # (Auto) [place] # (Auto) Eos # (Auto) Baso # (Auto) Sodium Potassium Chloride Carbon Dioxide Anion Gap BUN Creatinine Est GFR ( Amer) Est GFR (Non-Af Amer) POC Glucose (mg/dL) 186 H 189 H 181 H Random Glucose Calcium Phosphorus Magnesium Total Bilirubin AST ALT Alkaline Phosphatase Total Protein Albumin Globulin Albumin/Globulin Ratio 01/18/18 01/18/18 01/18/18 05:00 05:00 06:15 WBC 16.1 H RBC 4.20 Hgb 12.3 L Hct 39.6 L MCV 94.3 D MCH 29.3 MCHC 31.1 RDW 15.4 H Plt Count 261 MPV 12.6 H Gran % 75.4 H Lymph % (Auto) 12.0 L [place] % (Auto) 12.2 H Eos % (Auto) 0.2 L Baso % (Auto) 0.2 Gran # 12.15 H Lymph # (Auto) 1.9 [place] # (Auto) 2.0 H Eos # (Auto) 0.0 Baso # (Auto) 0.03 Sodium 155 H Potassium 4.1 Chloride 121 H Carbon Dioxide 28 Anion Gap 12 BUN 36 H Creatinine 2.5 H Est GFR ( Amer) 32 Est GFR (Non-Af Amer) 26 POC Glucose (mg/dL) 228 H Random Glucose 244 H Calcium 9.3 Phosphorus 2.6 Magnesium 2.7 H Total Bilirubin 0.6 AST 145 H D ALT 131 H Alkaline Phosphatase 151 H Total Protein 6.8 Albumin 3.3 Globulin 3.5 Albumin/Globulin Ratio 0.9 L Fingerstick Blood Sugar Results: 244 Review of Systems - Review of Systems All systems: reviewed and no additional remarkable complaints except Review of Systems: as per HPI Critical Care Progress Note - Nutrition Nutrition: Nutrition Category Date Time Status Liquid Diet [DIET] Diets 01/18/18 Lunch Ordered Assessment/Plan - Assessment and Plan (Free Text) Assessment: 62M w/ w/PMHx CAD/CABG and HTN admitted with 3 days of abd pain, acalculous cholecystitis. Patient is s/p lap cholecystectomy converted to open subtotal cholecystectomy with cholecystostomy tube placement on 01/18 Hospital course is complicated w/ high blood pressure initally requiring tridil drip. Patient has been febrile + tachycardic postop. Plan: Neuro: AAOx3 Moving all extremities past midline GCS 15, no gross neuro deficits Dilaudid for pain control 0.2mg/Q8min + 0.5mg Q2H Cardio: PMH CABG, HTN, HLD, CAD and stent placements HTN + Tachycardia - No longer requiring nitro drip; Most likely reactive changes in setting of patient being post-op Increased coreg to 12.5; will observe for changes in heart rate C/w imdur 30 QD PO; hydralazine 25 QID PO Holding home Valsartan/HCTZ CAD - Cardiac cath showed RCA stenosis 50%; EF of 65-70% Will start ASA + Plavix when safe HD Stable at this time; Cardiology following, appreciate reccs Pulm: Lungs clear bilaterally Saturating well on RA Maintain O2 sats > 90% GI: S/p lap cholecystectomy converted to open subtotal cholecystectomy with cholecystostomy tube placement on 01/18 Pt. is on CLD at this time Surgery on board, appreciate reccs Endo: ISS High ACHS Levemir 10 HS Accucheck ACHS Maintain euglycemia Renal: BUN/Cr - 36/2.5 BOOM ; ML Pre renal etiology Hypernatremia in setting of VOlume depletion Will swtich from 1/2 NS to D5W; increasing transfusion rate from 100 to 125mls/ hr 2L Output in last 24H Denies dysuria/ hematuria Will hold Valsartan/HCTz at this time Avoid nephrotoxic agent Heme: patient received 1U PLT yesterday PLT 261 this AM HH stable otherwise ID: Febrile overnight; managed w/ tylenol overnight Changes most likely reactive in nature due to operation day prior WBC decreasing from 19 to 16 BCx 2/2 negative at 24H C/w Merem at this time GIppx: protonix DVTppx: SCDs Patient was seen examined and discussed w/ attending Dr. Geovanny Esposito DO PGY1 Internal Medicine Building Materials Sales Attendant - Date & Time Date: 01/18/18 Time: 12:52 <Chirag Small - Last Filed: 01/18/18 14:42> CCU Objective - Vital Signs / Intake & Output Vital Signs (Last 4 hours): Vital Signs Temp Pulse BP Pulse Ox 01/18/18 13:00 92 H 110/63 94 L 01/18/18 12:00 98.7 F 92 H 104/54 L 97 01/18/18 11:00 94 H 94/52 L 97 Intake and Output (Last 8hrs): Intake & Output 01/17/18 01/18/18 01/18/18 22:59 06:59 14:59 Intake Total 704 1600 270 Output Total 1107 890 380 Balance -403 710 -110 Intake: IV 704 1500 30 0.5 ns 1200 Left Antecubital 704 abx 300 Oral 100 240 Output: Drainage 95 40 30 Abdomen 5 40 30 Medial Abdomen 90 Urine 1012 850 350 Urine, Voided 1012 850 350 Other: # Voids Urine, Voided 3 1 # Bowel Movements 0 0 - Medications Active Medications: Active Medications Generic Name Dose Route Start Last Admin Trade Name Freq PRN Reason Stop Dose Admin Acetaminophen 650 mg 01/18/18 05:47 01/18/18 05:57 Tylenol 325mg Tab PO 650 mg Q6H PRN Administration Fever >100.4 F Carvedilol 12.5 mg 01/18/18 10:00 01/18/18 09:39 Coreg PO 12.5 mg BID [facility] Administration Heparin Sodium (Porcine) 5,000 units 01/18/18 14:00 Heparin SC Q8 [facility] Protocol Hydralazine HCl 25 mg 01/18/18 14:19 Apresoline PO QID [facility] Hydromorphone HCl 0.5 mg 01/17/18 15:50 01/18/18 12:21 Dilaudid IVP 0.5 mg Q2H PRN Administration Pain, moderate (4-7) Hydromorphone HCl 30 mls @ 0 mls/hr 01/17/18 12:40 01/18/18 08:13 Dilaudid 0.2 Mg/Ml Car Cleaning Supervisor IV 1 mls/hr PRN PRN 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 Protocol Per Protocol Acetaminophen 1,000 mg in 100 mls @ 400 mls/hr 01/18/18 06:50 01/18/18 06:57 Ofirmev IVPB 01/20/18 06:51 400 mls/hr Q6H PRN Administration Pain, moderate (4-7) Meropenem 500 mg/ Sodium 50 mls @ 100 mls/hr 01/18/18 14:00 01/18/18 13:29 Chloride IVPB 01/27/18 14:01 100 mls/hr Q8 [facility] Administration Protocol Dextrose 1,000 mls @ 125 mls/hr 01/18/18 11:00 01/18/18 11:19 Dextrose 5% In Water 1000 Ml IV 125 mls/hr .Q8H [facility] Administration Insulin Detemir 10 unit 01/18/18 22:00 Levemir SC HS [facility] Insulin Human Regular 0 units 01/18/18 11:30 01/18/18 11:39 Humulin R High SC 4 unit ACHS [facility] Administration Protocol Isosorbide Mononitrate 30 mg 01/17/18 18:00 01/18/18 11:19 Imdur Er PO Not Given DAILY [facility] Ondansetron HCl 4 mg 01/17/18 12:34 Zofran Inj IVP ONCE PRN Nausea/Vomiting Pantoprazole Sodium 40 mg 01/17/18 06:00 01/18/18 05:07 Protonix Inj IVP 40 mg 0600 [facility] Administration - Patient Studies Lab Studies: Microbiology Studies 01/16/18 21:40 Blood Culture - Preliminary Blood NO GROWTH AFTER 24 HOURS 01/16/18 21:40 Blood Culture - Preliminary Blood NO GROWTH AFTER 24 HOURS 01/15/18 20:00 MRSA Culture (Admit) - Final Naris MRSA NOT DETECTED Lab Studies 01/18/18 01/18/18 01/18/18 Range/Units 06:15 05:00 05:00 WBC 16.1 H (4.5-11.0) 10^3/ul RBC 4.20 (3.5-6.1) 10^6/uL Hgb 12.3 L (14.0-18.0) g/dL Hct 39.6 L (42.0-52.0) % MCV 94.3 D (80.0-105.0) fl MCH 29.3 (25.0-35.0) pg MCHC 31.1 (31.0-37.0) g/dl RDW 15.4 H (11.5-14.5) % Plt Count 261 (120.0-450.0) 10^3/uL MPV 12.6 H (7.0-11.0) fl Gran % 75.4 H (50.0-68.0) % Lymph % (Auto) 12.0 L (22.0-35.0) % [place] % (Auto) 12.2 H (1.0-6.0) % Eos % (Auto) 0.2 L (1.5-5.0) % Baso % (Auto) 0.2 (0.0-3.0) % Gran # 12.15 H (1.4-6.5) Lymph # (Auto) 1.9 (1.2-3.4) [place] # (Auto) 2.0 H (0.1-0.6) Eos # (Auto) 0.0 (0.0-0.7) Baso # (Auto) 0.03 (0.0-2.0) K/mm3 Sodium 155 H (132-148) mmol/L Potassium 4.1 (3.6-5.0) mmol/L Chloride 121 H (98-107) mmol/L Carbon Dioxide 28 (21-33) mmol/L Anion Gap 12 (10-20) BUN 36 H (7-21) mg/dL Creatinine 2.5 H (0.8-1.5) mg/dl Est GFR ( Amer) 32 Est GFR (Non-Af Amer) 26 POC Glucose (mg/dL) 228 H (65-110) mg/dL Random Glucose 244 H (70-110) mg/dL Calcium 9.3 (8.4-10.5) mg/dL Phosphorus 2.6 (2.5-4.5) mg/dL Magnesium 2.7 H (1.7-2.2) mg/dL Total Bilirubin 0.6 (0.2-1.3) mg/dL AST 145 H D (17-59) U/L ALT 131 H (7-56) U/L Alkaline Phosphatase 151 H (38-126) U/L Total Protein 6.8 (5.8-8.3) g/dL Albumin 3.3 (3.0-4.8) g/dL Globulin 3.5 gm/dL Albumin/Globulin Ratio 0.9 L (1.1-1.8) 01/17/18 01/17/18 Range/Units 23:57 18:33 WBC (4.5-11.0) 10^3/ul RBC (3.5-6.1) 10^6/uL Hgb (14.0-18.0) g/dL Hct (42.0-52.0) % MCV (80.0-105.0) fl MCH (25.0-35.0) pg MCHC (31.0-37.0) g/dl RDW (11.5-14.5) % Plt Count (120.0-450.0) 10^3/uL MPV (7.0-11.0) fl Gran % (50.0-68.0) % Lymph % (Auto) (22.0-35.0) % [place] % (Auto) (1.0-6.0) % Eos % (Auto) (1.5-5.0) % Baso % (Auto) (0.0-3.0) % Gran # (1.4-6.5) Lymph # (Auto) (1.2-3.4) [place] # (Auto) (0.1-0.6) Eos # (Auto) (0.0-0.7) Baso # (Auto) (0.0-2.0) K/mm3 Sodium (132-148) mmol/L Potassium (3.6-5.0) mmol/L Chloride (98-107) mmol/L Carbon Dioxide (21-33) mmol/L Anion Gap (10-20) BUN (7-21) mg/dL Creatinine (0.8-1.5) mg/dl Est GFR ( Amer) Est GFR (Non-Af Amer) POC Glucose (mg/dL) 181 H 189 H (65-110) mg/dL Random Glucose (70-110) mg/dL Calcium (8.4-10.5) mg/dL Phosphorus (2.5-4.5) mg/dL Magnesium (1.7-2.2) mg/dL Total Bilirubin (0.2-1.3) mg/dL AST (17-59) U/L ALT (7-56) U/L Alkaline Phosphatase (38-126) U/L Total Protein (5.8-8.3) g/dL Albumin (3.0-4.8) g/dL Globulin gm/dL Albumin/Globulin Ratio (1.1-1.8) Laboratory Results - last 24 hr 01/17/18 01/17/18 01/18/18 18:33 23:57 05:00 WBC 16.1 H RBC 4.20 Hgb 12.3 L Hct 39.6 L MCV 94.3 D MCH 29.3 MCHC 31.1 RDW 15.4 H Plt Count 261 MPV 12.6 H Gran % 75.4 H Lymph % (Auto) 12.0 L [place] % (Auto) 12.2 H Eos % (Auto) 0.2 L Baso % (Auto) 0.2 Gran # 12.15 H Lymph # (Auto) 1.9 [place] # (Auto) 2.0 H Eos # (Auto) 0.0 Baso # (Auto) 0.03 Sodium Potassium Chloride Carbon Dioxide Anion Gap BUN Creatinine Est GFR ( Amer) Est GFR (Non-Af Amer) POC Glucose (mg/dL) 189 H 181 H Random Glucose Calcium Phosphorus Magnesium Total Bilirubin AST ALT Alkaline Phosphatase Total Protein Albumin Globulin Albumin/Globulin Ratio 01/18/18 01/18/18 05:00 06:15 WBC RBC Hgb Hct MCV MCH MCHC RDW Plt Count MPV Gran % Lymph % (Auto) [place] % (Auto) Eos % (Auto) Baso % (Auto) Gran # Lymph # (Auto) [place] # (Auto) Eos # (Auto) Baso # (Auto) Sodium 155 H Potassium 4.1 Chloride 121 H Carbon Dioxide 28 Anion Gap 12 BUN 36 H Creatinine 2.5 H Est GFR ( Amer) 32 Est GFR (Non-Af Amer) 26 POC Glucose (mg/dL) 228 H Random Glucose 244 H Calcium 9.3 Phosphorus 2.6 Magnesium 2.7 H Total Bilirubin 0.6 AST 145 H D ALT 131 H Alkaline Phosphatase 151 H Total Protein 6.8 Albumin 3.3 Globulin 3.5 Albumin/Globulin Ratio 0.9 L Critical Care Progress Note - Nutrition Nutrition: Nutrition Category Date Time Status Liquid Diet [DIET] Diets 01/18/18 Lunch Ordered Assessment/Plan - Assessment and Plan (Free Text) Assessment: Patient seen and examined, with residents on rounds, agree with note with following additions/exceptions: Patient is 62yo male w/PMHx CAD/CABG and HTN admitted with 3 days of abd pain, acalculous cholecystitis, and uncontrolled HTN. Patient underwent open partial cholecystectomy, with cholecystosmy drain in the OR Currently afebrile, BP stable, comfortable in NAD. BP improved on Coreg, Hydralazine, Imdur. Na and Cr rising, which is concerning. HTN Urgency CAD Acalculous cholecystitis s/p open partial cholecystectomy Hypernatremia Renal failure Recommend: - supp o2 as needed, duonebs PRN, IS - Broad spectrum Abx, cover for abdominal etiology, as per ID - follow up surgery - BP control - switch 1/2NS to D5W - obtain renal evaluation - UA, Ulytes, Renal Sono - NPO except meds - ASA, Brillinta - GI ppx - DVT ppx, HSQ - Monitor in MICU
--- NOTE | 2018-01-18 12:09 | PN ---
DATE: 01/18/2018 SUBJECTIVE: The patient is seen in bed, in no acute distress, nontoxic. The patient is seen in ICU bed number 3. The patient's family members are asleep on the chair. OBJECTIVE: VITAL SIGNS: On exam, T max was 101, blood pressure is 128/60, respiratory rate of 18, heart rate of 109. HEENT: Examination is unremarkable. NECK: Supple. LUNGS: Have decreased breath sounds. HEART: Normal S1, S2. ABDOMEN: Soft. DATA: Laboratory examination reveals the patient's white count of 16,100, hemoglobin of 12, platelets of 261. Chemistries reveal the creatinine is 2.5 and it was 1.6 yesterday. LFTs are elevated. Review of orders reveals the patient to be on Flagyl and meropenem, meropenem is 1 g every 12 hours. ASSESSMENT AND PLAN: This is a 62-year-old male with obesity, body mass index of 37, history of coronary artery disease, hypertension, diabetes, colon cancer admitted with abdominal pain, found to have some severe sepsis with acute renal failure, it is progressing to get worse with probable acute cholecystitis. We will readjust the meropenem dosing for renal function and discontinue the Flagyl. Meropenem is adequate; anaerobic coverage and Flagyl is not needed. The patient was taken to the OR yesterday for a laparoscopic, which converted to an open partial cholecystectomy with a placement of a cholecystotomy tube and postprocedure day #1. This morning's chest x-ray is pending.. The patient did have a fever yesterday with acalculous cholecystitis postprocedure day #1 status post lap, converted to open subtotal cholecystectomy with a cholecystotomy tube placement, now with acute kidney injury in this patient with severe sepsis. We will readjust the meropenem dosing and thus far, the blood cultures are negative and nasal MRSA is negative. We will order urinalysis and urine culture stat and for deteriorating kidney function, should have a urology evaluation, Nephrology evaluation and renal evaluation. Сергей Mcclellan MD
--- NOTE | 2018-01-18 13:15 | RAD ---
Date of service: 01/18/2018 HISTORY: NO ADM CXR COMPARISON: No prior. FINDINGS: LUNGS: No active pulmonary disease. PLEURA: No significant pleural effusion identified, no pneumothorax apparent. CARDIOVASCULAR: Normal heart size. Sternotomy wires. OSSEOUS STRUCTURES: No significant abnormalities. VISUALIZED UPPER ABDOMEN: Normal. OTHER FINDINGS: None. IMPRESSION: No active disease.
[2018-01-18] MEDS: Meropenem 500 MG in Sodium Chloride 0.9% 50 ML IVPB SCH ×2 (13:29→21:03)
[2018-01-18 16:39] LABS: PH,URINE 5.5 (4.7-8.0); URINE BILIRUBIN NEGATIVE (NEGATIVE); URINE BLOOD NEGATIVE (NEGATIVE); URINE GLUCOSE (UA) NEGATIVE (NEGATIVE); URINE LEUKOCYTE ESTERASE TRACE Leu/uL (NEGATIVE); URINE PROTEIN TRACE mg/dL (<30 mg/dL); URINE UROBILINOGEN 0.2 E.U./dL (<1 E.U./dL)
[2018-01-18 16:53] LABS: URINE APPEARANCE CLEAR (CLEAR); URINE COLOR YELLOW (YELLOW)
[2018-01-18 19:11] LABS: CALCIUM 9.2 mg/dL (8.4-10.5)
[2018-01-18] MEDS: Insulin Reg-HIGH-Coverage SC SCH ×2 (19:30→23:30)
[2018-01-18] MEDS: Insulin Detemir 100 units/ml Vial (Levemir) SC SCH (21:02)
[2018-01-19] MEDS: HYDROmorphone 0.5 mg/0.5 ml ISec IVP PRN ×3 (00:41→21:46)
[2018-01-19] MEDS: Insulin Reg-HIGH-Coverage SC SCH ×4 (03:51→16:43)
[2018-01-19] MEDS: HYDROmorphone 0.2 mg/ml (30ml) 30 ML IV PRN (04:24)
[2018-01-19] MEDS: Meropenem 500 MG in Sodium Chloride 0.9% 50 ML IVPB SCH (05:12)
[2018-01-19 06:45] LABS: BASO # 0.03 K/mm3 (0.0-2.0); BASO % 0.2 % (0.0-3.0); EOS # 0.2 (0.0-0.7); EOS % 1.1 % (1.5-5.0); GRAN # 12.46 (1.4-6.5); GRAN % 74.1 % (50.0-68.0); HEMOGLOBIN 12.7 g/dL (14.0-18.0); LYMPH # 2.4 (1.2-3.4); MEAN CELL VOLUME 94.5 fl (80.0-105.0); MEAN CORPUSCULAR HEMOGLOBIN 28.9 pg (25.0-35.0); MEAN CORPUSCULAR HGB CONC 30.6 g/dl (31.0-37.0); MEAN PLATELET VOLUME 12.8 fl (7.0-11.0); MONO # 1.8 (0.1-0.6); MONO % 10.6 % (1.0-6.0); RBC 4.39 10^6/uL (3.5-6.1); RED CELL DISTRIBUTION WIDTH 15.6 % (11.5-14.5); WHITE BLOOD COUNT 16.8 10^3/ul (4.5-11.0)
[2018-01-19 06:58] LABS: ALB/GLOB RATIO 0.9 (1.1-1.8); ALBUMIN 3.3 g/dL (3.0-4.8); CALCIUM 9.1 mg/dL (8.4-10.5)
[2018-01-19] MEDS ORDERED: DEXTROSE 5% IVPB SCH (08:00)
[2018-01-19] MEDS ORDERED: MEROPENEM IVPB SCH (08:00)
[2018-01-19] MEDS ORDERED: WATER IVPB SCH (08:00)
--- NOTE | 2018-01-19 09:20 | PN ---
DATE: 01/18/2018 SUBJECTIVE: He is in the Intensive Care Unit. He had surgery yesterday. It was an incomplete cholecystectomy. They had to leave some in. He is having a temperature. He is having right upper quadrant pain. He is having some drains placed. PHYSICAL EXAMINATION: VITAL SIGNS: He has 98.6 temp now, it was as high as 101.1 last night, it is coming down to 98.6; 94 pulse; 94/52 blood pressure; 98% O2 sat on room air. GENERAL: He is alert. He is talking. Feels fair. A little sedated. HEENT: Head is atraumatic, normocephalic. HEART: Regular rate. LUNGS: Decreased breath sounds. ABDOMEN: Mildly distended. Decreased bowel sounds. No guarding or rebound. EXTREMITIES: No edema. MEDICATIONS: He has Apresoline, Coreg, dextrose, Dilaudid, heparin, insulin, Imdur, Levemir, Merrem, Tylenol, Protonix and Zofran. LABORATORY DATA: He has a 16.1 white count, better than 19, so it is on its way down; 12.3 hemoglobin; 39.6 hematocrit with 261 platelets. He has a 155 sodium, potassium 4.1, BUN 36, creatinine 2.5. I will call in Renal to keep an eye on his kidney function. Last blood sugar was 228, calcium is 9.3, magnesium 2.7, AST is 145, ALT is 131, alk phos is 151. ASSESSMENT AND PLAN: We will continue with aggressive treatment care on Mr. Devine. Discussed with his at length. He is being seen by Cardiology, Surgery and Infectious Disease. I will call in Renal for their opinion, watch his blood sugars. Check his labs tomorrow. Continue with aggressive treatment and care, on IV antibiotics. Steve Boucher DO
--- NOTE | 2018-01-19 10:45 | CP.CCUPN ---
<Ally Alva - Last Filed: 01/19/18 11:28> CCU Subjective - Physician Review Subjective (Free Text): ICU progress note for Dr. Tiffanie Alva, PGY 1 Patient seen and examined this morning at bedside. Overnight his Blood glucose was elevated and he had several BP readings that were hypertensive. He has been afebrile overnight and nontachycardic. He is awake alert and oriented to person place and time. He denies flatus and BM but endorses mild nausea. He endorses mild incisional pain. He otherwise denies BERG, CP, SOB, extremity pain. 01/19/18 10:42 CCU Objective - Vital Signs / Intake & Output Vital Signs (Last 4 hours): Vital Signs Pulse BP 01/19/18 09:29 87 171/89 H 01/19/18 09:28 87 171/89 H Intake and Output (Last 8hrs): Intake & Output 01/18/18 01/19/18 01/19/18 22:59 06:59 14:59 Intake Total 1700 1880 Output Total 310 1220 Balance 1390 660 Intake: IV 1250 1630 Right Wrist 1250 abx 100 d5w 1500 Oral 450 250 Output: Drainage 10 20 Abdomen 10 20 Urine 300 1200 Urine, Voided 300 1200 Other: # Voids Urine, Voided 1 # Bowel Movements 0 - Physical Exam Head: Positive for: Atraumatic, Normocephalic Extroacular Muscles: Positive for: EOMI Conjunctiva: Positive for: Normal Mouth: Positive for: Dry Neck: Positive for: Normal Range of Motion Respiratory/Chest: Positive for: Clear to Auscultation, Good Air Exchange. Negative for: Respiratory Distress, Accessory Muscle Use Cardiovascular: Positive for: Regular Rate and Rhythm, Normal S1, S2. Negative for: Murmurs Abdomen: Positive for: Tenderness (RLQ/ R sided; non peritoneal mostly in area of drain), Distention, Scars (sternotomy scar), Other (Abdomen distended, tympanic; dressing CDI; Bowel sounds hypoactive). Negative for: Peritoneal Signs, Rebound, Guarding, McBurney's Point Tender, Rovsing's Sign Present Upper Extremity: Positive for: Normal Inspection, NORMAL PULSES. Negative for: Cyanosis, Edema Lower Extremity: Positive for: Normal Inspection, NORMAL PULSES, Other (Distal pulses 2+ BL Dorsalis Pedis). Negative for: Edema, CALF TENDERNESS Neurological: Positive for: GCS=15, Speech Normal, Motor Func Grossly Intact Skin: Positive for: Warm, Dry, Normal Color, Other (right subcostal incision and umbilical incision CDI with ambar, drain sites cdi). Negative for: Rashes Lymphatic: Negative for: Cervical Adenopathy Psychiatric: Positive for: Alert, Oriented x 3, Normal Insight - Medications Active Medications: Active Medications Generic Name Dose Route Start Last Admin Trade Name Freq PRN Reason Stop Dose Admin Acetaminophen 650 mg 01/18/18 05:47 01/18/18 05:57 Tylenol 325mg Tab PO 650 mg Q6H PRN Administration Fever >100.4 F Aspirin 81 mg 01/19/18 10:30 Ecotrin PO DAILY [facility] Carvedilol 12.5 mg 01/18/18 10:00 01/19/18 09:28 Coreg PO 12.5 mg BID [facility] Administration Heparin Sodium (Porcine) 5,000 units 01/18/18 14:00 01/19/18 05:12 Heparin SC 5,000 units Q8 [facility] Administration Protocol Hydralazine HCl 25 mg 01/18/18 14:19 01/19/18 09:29 Apresoline PO 25 mg QID [facility] Administration Hydromorphone HCl 0.5 mg 01/17/18 15:50 01/19/18 00:41 Dilaudid IVP 0.5 mg Q2H PRN Administration Pain, moderate (4-7) Acetaminophen 1,000 mg in 100 mls @ 400 mls/hr 01/18/18 06:50 01/18/18 06:57 Ofirmev IVPB 01/20/18 06:51 400 mls/hr Q6H PRN Administration Pain, moderate (4-7) Dextrose 1,000 mls @ 135 mls/hr 01/19/18 06:57 01/19/18 07:00 Dextrose 5% In Water 1000 Ml IV 135 mls/hr .Q7H25M [facility] Administration Meropenem 500 mg/ Dextrose 100 mls @ 100 mls/hr 01/19/18 08:26 IVPB Q8 [facility] Protocol Insulin Detemir 10 unit 01/18/18 22:00 01/18/18 21:02 Levemir SC 10 units HS [facility] Administration Insulin Human Regular 0 units 01/18/18 19:30 01/19/18 09:29 Humulin R High SC 7 unit Q4H [facility] Administration Protocol Isosorbide Mononitrate 60 mg 01/19/18 10:19 Imdur PO DAILY [facility] Losartan Potassium 100 mg 01/19/18 10:30 Cozaar PO DAILY [facility] Ondansetron HCl 4 mg 01/17/18 12:34 Zofran Inj IVP ONCE PRN Nausea/Vomiting Pantoprazole Sodium 40 mg 01/20/18 06:00 Protonix Ec Tab PO 0600 [facility] - Patient Studies Lab Studies: Microbiology Studies 01/16/18 21:40 Blood Culture - Preliminary Blood NO GROWTH AFTER 48 HOURS 01/16/18 21:40 Blood Culture - Preliminary Blood NO GROWTH AFTER 48 HOURS Lab Studies 01/19/18 01/19/18 01/19/18 Range/Units 05:30 05:30 03:50 WBC 16.8 H (4.5-11.0) 10^3/ul RBC 4.39 (3.5-6.1) 10^6/uL Hgb 12.7 L (14.0-18.0) g/dL Hct 41.5 L (42.0-52.0) % MCV 94.5 (80.0-105.0) fl MCH 28.9 (25.0-35.0) pg MCHC 30.6 L (31.0-37.0) g/dl RDW 15.6 H (11.5-14.5) % Plt Count 280 (120.0-450.0) 10^3/uL MPV 12.8 H (7.0-11.0) fl Gran % 74.1 H (50.0-68.0) % Lymph % (Auto) 14.0 L (22.0-35.0) % [place] % (Auto) 10.6 H (1.0-6.0) % Eos % (Auto) 1.1 L (1.5-5.0) % Baso % (Auto) 0.2 (0.0-3.0) % Gran # 12.46 H (1.4-6.5) Lymph # (Auto) 2.4 (1.2-3.4) [place] # (Auto) 1.8 H (0.1-0.6) Eos # (Auto) 0.2 (0.0-0.7) Baso # (Auto) 0.03 (0.0-2.0) K/mm3 Sodium 156 H* (132-148) mmol/L Potassium 4.4 (3.6-5.0) mmol/L Chloride 122 H (98-107) mmol/L Carbon Dioxide 28 (21-33) mmol/L Anion Gap 11 (10-20) BUN 41 H (7-21) mg/dL Creatinine 2.1 H (0.8-1.5) mg/dl Est GFR ( Amer) 39 Est GFR (Non-Af Amer) 32 POC Glucose (mg/dL) 239 H (65-110) mg/dL Random Glucose 287 H (70-110) mg/dL Calcium 9.1 (8.4-10.5) mg/dL Phosphorus 2.9 (2.5-4.5) mg/dL Magnesium 2.9 H (1.7-2.2) mg/dL Total Bilirubin 0.5 (0.2-1.3) mg/dL AST 65 H D (17-59) U/L ALT 94 H (7-56) U/L Alkaline Phosphatase 145 H (38-126) U/L Total Protein 6.9 (5.8-8.3) g/dL Albumin 3.3 (3.0-4.8) g/dL Globulin 3.6 gm/dL Albumin/Globulin Ratio 0.9 L (1.1-1.8) Urine Color (YELLOW) Urine Appearance (CLEAR) Urine pH (4.7-8.0) Ur Specific [place] (1.005-1.035) Urine Protein (<30 mg/dL) mg/dL Urine Glucose (UA) (NEGATIVE) mg/dL Urine Ketones (NEGATIVE) mg/dL Urine Blood (NEGATIVE) Urine Nitrate (NEGATIVE) Urine Bilirubin (NEGATIVE) Urine Urobilinogen (<1 E.U./dL) E.U./dL Ur Leukocyte Esterase (NEGATIVE) Barbie/uL Urine RBC Urine WBC (0-6) /hpf Ur Epithelial Cells (0-5) /hpf 01/18/18 01/18/18 01/18/18 Range/Units 23:29 20:02 18:00 WBC (4.5-11.0) 10^3/ul RBC (3.5-6.1) 10^6/uL Hgb (14.0-18.0) g/dL Hct (42.0-52.0) % MCV (80.0-105.0) fl MCH (25.0-35.0) pg MCHC (31.0-37.0) g/dl RDW (11.5-14.5) % Plt Count (120.0-450.0) 10^3/uL MPV (7.0-11.0) fl Gran % (50.0-68.0) % Lymph % (Auto) (22.0-35.0) % [place] % (Auto) (1.0-6.0) % Eos % (Auto) (1.5-5.0) % Baso % (Auto) (0.0-3.0) % Gran # (1.4-6.5) Lymph # (Auto) (1.2-3.4) [place] # (Auto) (0.1-0.6) Eos # (Auto) (0.0-0.7) Baso # (Auto) (0.0-2.0) K/mm3 Sodium 154 H (132-148) mmol/L Potassium 4.3 (3.6-5.0) mmol/L Chloride 121 H (98-107) mmol/L Carbon Dioxide 27 (21-33) mmol/L Anion Gap 10 (10-20) BUN 44 H (7-21) mg/dL Creatinine 2.6 H (0.8-1.5) mg/dl Est GFR ( Amer) 30 Est GFR (Non-Af Amer) 25 POC Glucose (mg/dL) 218 H 256 H (65-110) mg/dL Random Glucose 355 H* D (70-110) mg/dL Calcium 9.2 (8.4-10.5) mg/dL Phosphorus (2.5-4.5) mg/dL Magnesium (1.7-2.2) mg/dL Total Bilirubin (0.2-1.3) mg/dL AST (17-59) U/L ALT (7-56) U/L Alkaline Phosphatase (38-126) U/L Total Protein (5.8-8.3) g/dL Albumin (3.0-4.8) g/dL Globulin gm/dL Albumin/Globulin Ratio (1.1-1.8) Urine Color (YELLOW) Urine Appearance (CLEAR) Urine pH (4.7-8.0) Ur Specific [place] (1.005-1.035) Urine Protein (<30 mg/dL) mg/dL Urine Glucose (UA) (NEGATIVE) mg/dL Urine Ketones (NEGATIVE) mg/dL Urine Blood (NEGATIVE) Urine Nitrate (NEGATIVE) Urine Bilirubin (NEGATIVE) Urine Urobilinogen (<1 E.U./dL) E.U./dL Ur Leukocyte Esterase (NEGATIVE) Barbie/uL Urine RBC Urine WBC (0-6) /hpf Ur Epithelial Cells (0-5) /hpf 01/18/18 01/18/18 01/18/18 Range/Units 17:46 16:20 11:21 WBC (4.5-11.0) 10^3/ul RBC (3.5-6.1) 10^6/uL Hgb (14.0-18.0) g/dL Hct (42.0-52.0) % MCV (80.0-105.0) fl MCH (25.0-35.0) pg MCHC (31.0-37.0) g/dl RDW (11.5-14.5) % Plt Count (120.0-450.0) 10^3/uL MPV (7.0-11.0) fl Gran % (50.0-68.0) % Lymph % (Auto) (22.0-35.0) % [place] % (Auto) (1.0-6.0) % Eos % (Auto) (1.5-5.0) % Baso % (Auto) (0.0-3.0) % Gran # (1.4-6.5) Lymph # (Auto) (1.2-3.4) [place] # (Auto) (0.1-0.6) Eos # (Auto) (0.0-0.7) Baso # (Auto) (0.0-2.0) K/mm3 Sodium (132-148) mmol/L Potassium (3.6-5.0) mmol/L Chloride (98-107) mmol/L Carbon Dioxide (21-33) mmol/L Anion Gap (10-20) BUN (7-21) mg/dL Creatinine (0.8-1.5) mg/dl Est GFR ( Amer) Est GFR (Non-Af Amer) POC Glucose (mg/dL) 317 H 243 H (65-110) mg/dL Random Glucose (70-110) mg/dL Calcium (8.4-10.5) mg/dL Phosphorus (2.5-4.5) mg/dL Magnesium (1.7-2.2) mg/dL Total Bilirubin (0.2-1.3) mg/dL AST (17-59) U/L ALT (7-56) U/L Alkaline Phosphatase (38-126) U/L Total Protein (5.8-8.3) g/dL Albumin (3.0-4.8) g/dL Globulin gm/dL Albumin/Globulin Ratio (1.1-1.8) Urine Color Yellow (YELLOW) Urine Appearance Clear (CLEAR) Urine pH 5.5 (4.7-8.0) Ur Specific [place] 1.015 (1.005-1.035) Urine Protein Trace H (<30 mg/dL) mg/dL Urine Glucose (UA) Negative (NEGATIVE) mg/dL Urine Ketones Negative (NEGATIVE) mg/dL Urine Blood Negative (NEGATIVE) Urine Nitrate Negative (NEGATIVE) Urine Bilirubin Negative (NEGATIVE) Urine Urobilinogen 0.2 (<1 E.U./dL) E.U./dL Ur Leukocyte Esterase Trace H (NEGATIVE) Barbie/uL Urine RBC TEST NOT PERFORMED Urine WBC 5 - 10 (0-6) /hpf Ur Epithelial Cells 10 - 12 (0-5) /hpf Laboratory Results - last 24 hr 01/18/18 01/18/18 01/18/18 11:21 16:20 17:46 WBC RBC Hgb Hct MCV MCH MCHC RDW Plt Count MPV Gran % Lymph % (Auto) [place] % (Auto) Eos % (Auto) Baso % (Auto) Gran # Lymph # (Auto) [place] # (Auto) Eos # (Auto) Baso # (Auto) Sodium Potassium Chloride Carbon Dioxide Anion Gap BUN Creatinine Est GFR ( Amer) Est GFR (Non-Af Amer) POC Glucose (mg/dL) 243 H 317 H Random Glucose Calcium Phosphorus Magnesium Total Bilirubin AST ALT Alkaline Phosphatase Total Protein Albumin Globulin Albumin/Globulin Ratio Urine Color Yellow Urine Appearance Clear Urine pH 5.5 Ur Specific Cow[place] 1.015 Urine Protein Trace H Urine Glucose (UA) Negative Urine Ketones Negative Urine Blood Negative Urine Nitrate Negative Urine Bilirubin Negative Urine Urobilinogen 0.2 Ur Leukocyte Esterase Trace H Urine RBC TEST NOT PERFORMED Urine WBC 5 - 10 Ur Epithelial Cells 10 - 12 01/18/18 01/18/18 01/18/18 18:00 20:02 23:29 WBC RBC Hgb Hct MCV MCH MCHC RDW Plt Count MPV Gran % Lymph % (Auto) [place] % (Auto) Eos % (Auto) Baso % (Auto) Gran # Lymph # (Auto) [place] # (Auto) Eos # (Auto) Baso # (Auto) Sodium 154 H Potassium 4.3 Chloride 121 H Carbon Dioxide 27 Anion Gap 10 BUN 44 H Creatinine 2.6 H Est GFR ( Amer) 30 Est GFR (Non-Af Amer) 25 POC Glucose (mg/dL) 256 H 218 H Random Glucose 355 H* D Calcium 9.2 Phosphorus Magnesium Total Bilirubin AST ALT Alkaline Phosphatase Total Protein Albumin Globulin Albumin/Globulin Ratio Urine Color Urine Appearance Urine pH Ur Specific [place] Urine Protein Urine Glucose (UA) Urine Ketones Urine Blood Urine Nitrate Urine Bilirubin Urine Urobilinogen Ur Leukocyte Esterase Urine RBC Urine WBC Ur Epithelial Cells 01/19/18 01/19/18 01/19/18 03:50 05:30 05:30 WBC 16.8 H RBC 4.39 Hgb 12.7 L Hct 41.5 L MCV 94.5 MCH 28.9 MCHC 30.6 L RDW 15.6 H Plt Count 280 MPV 12.8 H Gran % 74.1 H Lymph % (Auto) 14.0 L [place] % (Auto) 10.6 H Eos % (Auto) 1.1 L Baso % (Auto) 0.2 Gran # 12.46 H Lymph # (Auto) 2.4 [place] # (Auto) 1.8 H Eos # (Auto) 0.2 Baso # (Auto) 0.03 Sodium 156 H* Potassium 4.4 Chloride 122 H Carbon Dioxide 28 Anion Gap 11 BUN 41 H Creatinine 2.1 H Est GFR ( Amer) 39 Est GFR (Non-Af Amer) 32 POC Glucose (mg/dL) 239 H Random Glucose 287 H Calcium 9.1 Phosphorus 2.9 Magnesium 2.9 H Total Bilirubin 0.5 AST 65 H D ALT 94 H Alkaline Phosphatase 145 H Total Protein 6.9 Albumin 3.3 Globulin 3.6 Albumin/Globulin Ratio 0.9 L Urine Color Urine Appearance Urine pH Ur Specific [place] Urine Protein Urine Glucose (UA) Urine Ketones Urine Blood Urine Nitrate Urine Bilirubin Urine Urobilinogen Ur Leukocyte Esterase Urine RBC Urine WBC Ur Epithelial Cells Fingerstick Blood Sugar Results: 255 Review of Systems - Review of Systems All systems: reviewed and no additional remarkable complaints except Review of Systems: as per HPI Critical Care Progress Note - Nutrition Nutrition: Nutrition Category Date Time Status Liquid Diet [DIET] Diets 01/18/18 Lunch Ordered Assessment/Plan - Assessment and Plan (Free Text) Assessment: 62M w/ w/PMHx CAD/CABG and HTN admitted with 3 days of abd pain, acalculous cholecystitis. Patient is POD2, s/p lap cholecystectomy converted to open partial cholecystectomy with cholecystostomy tube placement on 01/18 Hospital course is complicated w/ high blood pressure initially requiring tridil drip now controlled with Imdur, coreg and PRN hydralazine. Post op fevers and tachycardia have resolved. Plan: Neuro: AAOx3 Moving all extremities past midline GCS 15, no gross neuro deficits Dilaudid for pain control 0.5mg Q2H PRN Cardio: PMH CABG, HTN, HLD, CAD and stent placements HTN + Tachycardia - No longer requiring nitro drip; well controlled/ resolved on current medications C/w imdur 30 QD PO; hydralazine 25 QID PO; Coreg 12.5 Holding home Valsartan/HCTZ CAD - Cardiac cath showed RCA stenosis 50%; EF of 65-70% Will start ASA + Plavix when safe, per surgery recs HD Stable at this time; Cardiology following, appreciate recs Pulm: Lungs clear bilaterally Saturating well on RA Maintain O2 sats > 90% GI: S/p lap cholecystectomy converted to open subtotal cholecystectomy with cholecystostomy tube placement on 01/18 Pt. is on CLD at this time Surgery on board, advance diet as per surgery recs Endo: ISS High ACHS Levemir 10 HS Accucheck ACHS Maintain euglycemia Renal: BUN/Cr - 41/2.1 BOOM ; ML Pre renal etiology Hypernatremia in setting of Volume depletion increased D5w to 150/hr from 125, all medications running in NS changed the D5w - q4 BMP to monitor Na Decrease goal Na 146, goal decrease to 10 meq in next 24hrs 1850mL Output in last 24H Denies dysuria/ hematuria Will hold Valsartan/HCTz at this time Avoid nephrotoxic agent Heme: patient received 1U PLT 01/17 PLT 280 this AM HH stable otherwise ID: Febrile overnight; managed w/ tylenol overnight WBC decreasing to 16.8 BCx 2/2 negative at 48H C/w Merem at this time in D5w GIppx: protonix DVTppx: SCDs, heparin - Date & Time Date: 01/19/18 Time: 07:20 <Moreno,Bilal - Last Filed: 01/19/18 14:12> CCU Objective - Vital Signs / Intake & Output Vital Signs (Last 4 hours): Vital Signs Pulse BP Pulse Ox 01/19/18 12:38 85 126/71 01/19/18 12:01 85 135/71 01/19/18 12:00 87 01/19/18 11:01 86 148/80 99 01/19/18 11:00 87 94 L Intake and Output (Last 8hrs): Intake & Output 01/18/18 01/19/18 01/19/18 22:59 06:59 14:59 Intake Total 1700 1880 Output Total 310 1220 Balance 1390 660 Intake: IV 1250 1630 Right Wrist 1250 abx 100 d5w 1500 Oral 450 250 Output: Drainage 10 20 Abdomen 10 20 Urine 300 1200 Urine, Voided 300 1200 Other: # Voids Urine, Voided 1 # Bowel Movements 0 - Medications Active Medications: Active Medications Generic Name Dose Route Start Last Admin Trade Name Freq PRN Reason Stop Dose Admin Acetaminophen 650 mg 01/18/18 05:47 01/18/18 05:57 Tylenol 325mg Tab PO 650 mg Q6H PRN Administration Fever >100.4 F Aspirin 81 mg 01/19/18 10:30 Ecotrin PO DAILY [facility] Carvedilol 12.5 mg 01/18/18 10:00 01/19/18 09:28 Coreg PO 12.5 mg BID [facility] Administration Heparin Sodium (Porcine) 5,000 units 01/18/18 14:00 01/19/18 05:12 Heparin SC 5,000 units Q8 [facility] Administration Protocol Hydralazine HCl 25 mg 01/18/18 14:19 01/19/18 09:29 Apresoline PO 25 mg QID [facility] Administration Hydromorphone HCl 0.5 mg 01/17/18 15:50 01/19/18 00:41 Dilaudid IVP 0.5 mg Q2H PRN Administration Pain, moderate (4-7) Acetaminophen 1,000 mg in 100 mls @ 400 mls/hr 01/18/18 06:50 01/18/18 06:57 Ofirmev IVPB 01/20/18 06:51 400 mls/hr Q6H PRN Administration Pain, moderate (4-7) Meropenem 500 mg/ Dextrose 100 mls @ 100 mls/hr 01/19/18 08:26 IVPB Q8 [facility] Protocol Dextrose 1,000 mls @ 150 mls/hr 01/19/18 11:26 01/19/18 11:30 Dextrose 5% In Water 1000 Ml IV 150 mls/hr .Q6H40M [facility] Administration Insulin Detemir 10 unit 01/18/18 22:00 01/18/18 21:02 Levemir SC 10 units HS [facility] Administration Insulin Human Regular 0 units 01/18/18 19:30 01/19/18 12:42 Humulin R High SC 10 unit Q4H [facility] Administration Protocol Isosorbide Mononitrate 60 mg 01/19/18 10:19 Imdur PO DAILY [facility] Losartan Potassium 100 mg 01/19/18 10:30 01/19/18 11:31 Cozaar PO 100 mg DAILY [facility] Administration Ondansetron HCl 4 mg 01/17/18 12:34 Zofran Inj IVP ONCE PRN Nausea/Vomiting Pantoprazole Sodium 40 mg 01/20/18 06:00 Protonix Ec Tab PO 0600 [facility] Tamsulosin HCl 0.4 mg 01/19/18 13:30 Flomax PO DAILY [facility] - Patient Studies Lab Studies: Microbiology Studies 01/16/18 21:40 Blood Culture - Preliminary Blood NO GROWTH AFTER 48 HOURS 01/16/18 21:40 Blood Culture - Preliminary Blood NO GROWTH AFTER 48 HOURS Lab Studies 01/19/18 01/19/18 01/19/18 Range/Units 12:30 12:22 07:43 WBC (4.5-11.0) 10^3/ul RBC (3.5-6.1) 10^6/uL Hgb (14.0-18.0) g/dL Hct (42.0-52.0) % MCV (80.0-105.0) fl MCH (25.0-35.0) pg MCHC (31.0-37.0) g/dl RDW (11.5-14.5) % Plt Count (120.0-450.0) 10^3/uL MPV (7.0-11.0) fl Gran % (50.0-68.0) % Lymph % (Auto) (22.0-35.0) % [place] % (Auto) (1.0-6.0) % Eos % (Auto) (1.5-5.0) % Baso % (Auto) (0.0-3.0) % Gran # (1.4-6.5) Lymph # (Auto) (1.2-3.4) [place] # (Auto) (0.1-0.6) Eos # (Auto) (0.0-0.7) Baso # (Auto) (0.0-2.0) K/mm3 Sodium 153 H (132-148) mmol/L Potassium 4.5 (3.6-5.0) mmol/L Chloride 121 H (98-107) mmol/L Carbon Dioxide 25 (21-33) mmol/L Anion Gap 12 (10-20) BUN 40 H (7-21) mg/dL Creatinine 1.9 H (0.8-1.5) mg/dl Est GFR ( Amer) 44 Est GFR (Non-Af Amer) 36 POC Glucose (mg/dL) 306 H 255 H (65-110) mg/dL Random Glucose 355 H* D (70-110) mg/dL Calcium 9.2 (8.4-10.5) mg/dL Phosphorus (2.5-4.5) mg/dL Magnesium (1.7-2.2) mg/dL Total Bilirubin (0.2-1.3) mg/dL AST (17-59) U/L ALT (7-56) U/L Alkaline Phosphatase (38-126) U/L Total Protein (5.8-8.3) g/dL Albumin (3.0-4.8) g/dL Globulin gm/dL Albumin/Globulin Ratio (1.1-1.8) Urine Color (YELLOW) Urine Appearance (CLEAR) Urine pH (4.7-8.0) Ur Specific [place] (1.005-1.035) Urine Protein (<30 mg/dL) mg/dL Urine Glucose (UA) (NEGATIVE) mg/dL Urine Ketones (NEGATIVE) mg/dL Urine Blood (NEGATIVE) Urine Nitrate (NEGATIVE) Urine Bilirubin (NEGATIVE) Urine Urobilinogen (<1 E.U./dL) E.U./dL Ur Leukocyte Esterase (NEGATIVE) Barbie/uL Urine RBC Urine WBC (0-6) /hpf Ur Epithelial Cells (0-5) /hpf 01/19/18 01/19/18 01/19/18 Range/Units 05:30 05:30 03:50 WBC 16.8 H (4.5-11.0) 10^3/ul RBC 4.39 (3.5-6.1) 10^6/uL Hgb 12.7 L (14.0-18.0) g/dL Hct 41.5 L (42.0-52.0) % MCV 94.5 (80.0-105.0) fl MCH 28.9 (25.0-35.0) pg MCHC 30.6 L (31.0-37.0) g/dl RDW 15.6 H (11.5-14.5) % Plt Count 280 (120.0-450.0) 10^3/uL MPV 12.8 H (7.0-11.0) fl Gran % 74.1 H (50.0-68.0) % Lymph % (Auto) 14.0 L (22.0-35.0) % [place] % (Auto) 10.6 H (1.0-6.0) % Eos % (Auto) 1.1 L (1.5-5.0) % Baso % (Auto) 0.2 (0.0-3.0) % Gran # 12.46 H (1.4-6.5) Lymph # (Auto) 2.4 (1.2-3.4) [place] # (Auto) 1.8 H (0.1-0.6) Eos # (Auto) 0.2 (0.0-0.7) Baso # (Auto) 0.03 (0.0-2.0) K/mm3 Sodium 156 H* (132-148) mmol/L Potassium 4.4 (3.6-5.0) mmol/L Chloride 122 H (98-107) mmol/L Carbon Dioxide 28 (21-33) mmol/L Anion Gap 11 (10-20) BUN 41 H (7-21) mg/dL Creatinine 2.1 H (0.8-1.5) mg/dl Est GFR ( Amer) 39 Est GFR (Non-Af Amer) 32 POC Glucose (mg/dL) 239 H (65-110) mg/dL Random Glucose 287 H (70-110) mg/dL Calcium 9.1 (8.4-10.5) mg/dL Phosphorus 2.9 (2.5-4.5) mg/dL Magnesium 2.9 H (1.7-2.2) mg/dL Total Bilirubin 0.5 (0.2-1.3) mg/dL AST 65 H D (17-59) U/L ALT 94 H (7-56) U/L Alkaline Phosphatase 145 H (38-126) U/L Total Protein 6.9 (5.8-8.3) g/dL Albumin 3.3 (3.0-4.8) g/dL Globulin 3.6 gm/dL Albumin/Globulin Ratio 0.9 L (1.1-1.8) Urine Color (YELLOW) Urine Appearance (CLEAR) Urine pH (4.7-8.0) Ur Specific [place] (1.005-1.035) Urine Protein (<30 mg/dL) mg/dL Urine Glucose (UA) (NEGATIVE) mg/dL Urine Ketones (NEGATIVE) mg/dL Urine Blood (NEGATIVE) Urine Nitrate (NEGATIVE) Urine Bilirubin (NEGATIVE) Urine Urobilinogen (<1 E.U./dL) E.U./dL Ur Leukocyte Esterase (NEGATIVE) Barbie/uL Urine RBC Urine WBC (0-6) /hpf Ur Epithelial Cells (0-5) /hpf 01/18/18 01/18/18 01/18/18 Range/Units 23:29 20:02 18:00 WBC (4.5-11.0) 10^3/ul RBC (3.5-6.1) 10^6/uL Hgb (14.0-18.0) g/dL Hct (42.0-52.0) % MCV (80.0-105.0) fl MCH (25.0-35.0) pg MCHC (31.0-37.0) g/dl RDW (11.5-14.5) % Plt Count (120.0-450.0) 10^3/uL MPV (7.0-11.0) fl Gran % (50.0-68.0) % Lymph % (Auto) (22.0-35.0) % [place] % (Auto) (1.0-6.0) % Eos % (Auto) (1.5-5.0) % Baso % (Auto) (0.0-3.0) % Gran # (1.4-6.5) Lymph # (Auto) (1.2-3.4) [place] # (Auto) (0.1-0.6) Eos # (Auto) (0.0-0.7) Baso # (Auto) (0.0-2.0) K/mm3 Sodium 154 H (132-148) mmol/L Potassium 4.3 (3.6-5.0) mmol/L Chloride 121 H (98-107) mmol/L Carbon Dioxide 27 (21-33) mmol/L Anion Gap 10 (10-20) BUN 44 H (7-21) mg/dL Creatinine 2.6 H (0.8-1.5) mg/dl Est GFR ( Amer) 30 Est GFR (Non-Af Amer) 25 POC Glucose (mg/dL) 218 H 256 H (65-110) mg/dL Random Glucose 355 H* D (70-110) mg/dL Calcium 9.2 (8.4-10.5) mg/dL Phosphorus (2.5-4.5) mg/dL Magnesium (1.7-2.2) mg/dL Total Bilirubin (0.2-1.3) mg/dL AST (17-59) U/L ALT (7-56) U/L Alkaline Phosphatase (38-126) U/L Total Protein (5.8-8.3) g/dL Albumin (3.0-4.8) g/dL Globulin gm/dL Albumin/Globulin Ratio (1.1-1.8) Urine Color (YELLOW) Urine Appearance (CLEAR) Urine pH (4.7-8.0) Ur Specific [place] (1.005-1.035) Urine Protein (<30 mg/dL) mg/dL Urine Glucose (UA) (NEGATIVE) mg/dL Urine Ketones (NEGATIVE) mg/dL Urine Blood (NEGATIVE) Urine Nitrate (NEGATIVE) Urine Bilirubin (NEGATIVE) Urine Urobilinogen (<1 E.U./dL) E.U./dL Ur Leukocyte Esterase (NEGATIVE) Barbie/uL Urine RBC Urine WBC (0-6) /hpf Ur Epithelial Cells (0-5) /hpf 01/18/18 01/18/18 01/18/18 Range/Units 17:46 16:20 11:21 WBC (4.5-11.0) 10^3/ul RBC (3.5-6.1) 10^6/uL Hgb (14.0-18.0) g/dL Hct (42.0-52.0) % MCV (80.0-105.0) fl MCH (25.0-35.0) pg MCHC (31.0-37.0) g/dl RDW (11.5-14.5) % Plt Count (120.0-450.0) 10^3/uL MPV (7.0-11.0) fl Gran % (50.0-68.0) % Lymph % (Auto) (22.0-35.0) % [place] % (Auto) (1.0-6.0) % Eos % (Auto) (1.5-5.0) % Baso % (Auto) (0.0-3.0) % Gran # (1.4-6.5) Lymph # (Auto) (1.2-3.4) [place] # (Auto) (0.1-0.6) Eos # (Auto) (0.0-0.7) Baso # (Auto) (0.0-2.0) K/mm3 Sodium (132-148) mmol/L Potassium (3.6-5.0) mmol/L Chloride (98-107) mmol/L Carbon Dioxide (21-33) mmol/L Anion Gap (10-20) BUN (7-21) mg/dL Creatinine (0.8-1.5) mg/dl Est GFR ( Amer) Est GFR (Non-Af Amer) POC Glucose (mg/dL) 317 H 243 H (65-110) mg/dL Random Glucose (70-110) mg/dL Calcium (8.4-10.5) mg/dL Phosphorus (2.5-4.5) mg/dL Magnesium (1.7-2.2) mg/dL Total Bilirubin (0.2-1.3) mg/dL AST (17-59) U/L ALT (7-56) U/L Alkaline Phosphatase (38-126) U/L Total Protein (5.8-8.3) g/dL Albumin (3.0-4.8) g/dL Globulin gm/dL Albumin/Globulin Ratio (1.1-1.8) Urine Color Yellow (YELLOW) Urine Appearance Clear (CLEAR) Urine pH 5.5 (4.7-8.0) Ur Specific [place] 1.015 (1.005-1.035) Urine Protein Trace H (<30 mg/dL) mg/dL Urine Glucose (UA) Negative (NEGATIVE) mg/dL Urine Ketones Negative (NEGATIVE) mg/dL Urine Blood Negative (NEGATIVE) Urine Nitrate Negative (NEGATIVE) Urine Bilirubin Negative (NEGATIVE) Urine Urobilinogen 0.2 (<1 E.U./dL) E.U./dL Ur Leukocyte Esterase Trace H (NEGATIVE) Barbie/uL Urine RBC TEST NOT PERFORMED Urine WBC 5 - 10 (0-6) /hpf Ur Epithelial Cells 10 - 12 (0-5) /hpf Laboratory Results - last 24 hr 01/18/18 01/18/18 01/18/18 11:21 16:20 17:46 WBC RBC Hgb Hct MCV MCH MCHC RDW Plt Count MPV Gran % Lymph % (Auto) [place] % (Auto) Eos % (Auto) Baso % (Auto) Gran # Lymph # (Auto) [place] # (Auto) Eos # (Auto) Baso # (Auto) Sodium Potassium Chloride Carbon Dioxide Anion Gap BUN Creatinine Est GFR ( Amer) Est GFR (Non-Af Amer) POC Glucose (mg/dL) 243 H 317 H Random Glucose Calcium Phosphorus Magnesium Total Bilirubin AST ALT Alkaline Phosphatase Total Protein Albumin Globulin Albumin/Globulin Ratio Urine Color Yellow Urine Appearance Clear Urine pH 5.5 Ur Specific [place] 1.015 Urine Protein Trace H Urine Glucose (UA) Negative Urine Ketones Negative Urine Blood Negative Urine Nitrate Negative Urine Bilirubin Negative Urine Urobilinogen 0.2 Ur Leukocyte Esterase Trace H Urine RBC TEST NOT PERFORMED Urine WBC 5 - 10 Ur Epithelial Cells 10 - 12 01/18/18 01/18/18 01/18/18 18:00 20:02 23:29 WBC RBC Hgb Hct MCV MCH MCHC RDW Plt Count MPV Gran % Lymph % (Auto) [place] % (Auto) Eos % (Auto) Baso % (Auto) Gran # Lymph # (Auto) [place] # (Auto) Eos # (Auto) Baso # (Auto) Sodium 154 H Potassium 4.3 Chloride 121 H Carbon Dioxide 27 Anion Gap 10 BUN 44 H Creatinine 2.6 H Est GFR ( Amer) 30 Est GFR (Non-Af Amer) 25 POC Glucose (mg/dL) 256 H 218 H Random Glucose 355 H* D Calcium 9.2 Phosphorus Magnesium Total Bilirubin AST ALT Alkaline Phosphatase Total Protein Albumin Globulin Albumin/Globulin Ratio Urine Color Urine Appearance Urine pH Ur Specific [place] Urine Protein Urine Glucose (UA) Urine Ketones Urine Blood Urine Nitrate Urine Bilirubin Urine Urobilinogen Ur Leukocyte Esterase Urine RBC Urine WBC Ur Epithelial Cells 01/19/18 01/19/18 01/19/18 03:50 05:30 05:30 WBC 16.8 H RBC 4.39 Hgb 12.7 L Hct 41.5 L MCV 94.5 MCH 28.9 MCHC 30.6 L RDW 15.6 H Plt Count 280 MPV 12.8 H Gran % 74.1 H Lymph % (Auto) 14.0 L [place] % (Auto) 10.6 H Eos % (Auto) 1.1 L Baso % (Auto) 0.2 Gran # 12.46 H Lymph # (Auto) 2.4 [place] # (Auto) 1.8 H Eos # (Auto) 0.2 Baso # (Auto) 0.03 Sodium 156 H* Potassium 4.4 Chloride 122 H Carbon Dioxide 28 Anion Gap 11 BUN 41 H Creatinine 2.1 H Est GFR ( Amer) 39 Est GFR (Non-Af Amer) 32 POC Glucose (mg/dL) 239 H Random Glucose 287 H Calcium 9.1 Phosphorus 2.9 Magnesium 2.9 H Total Bilirubin 0.5 AST 65 H D ALT 94 H Alkaline Phosphatase 145 H Total Protein 6.9 Albumin 3.3 Globulin 3.6 Albumin/Globulin Ratio 0.9 L Urine Color Urine Appearance Urine pH Ur Specific [place] Urine Protein Urine Glucose (UA) Urine Ketones Urine Blood Urine Nitrate Urine Bilirubin Urine Urobilinogen Ur Leukocyte Esterase Urine RBC Urine WBC Ur Epithelial Cells 01/19/18 01/19/18 01/19/18 07:43 12:22 12:30 WBC RBC Hgb Hct MCV MCH MCHC RDW Plt Count MPV Gran % Lymph % (Auto) [place] % (Auto) Eos % (Auto) Baso % (Auto) Gran # Lymph # (Auto) [place] # (Auto) Eos # (Auto) Baso # (Auto) Sodium 153 H Potassium 4.5 Chloride 121 H Carbon Dioxide 25 Anion Gap 12 BUN 40 H Creatinine 1.9 H Est GFR ( Amer) 44 Est GFR (Non-Af Amer) 36 POC Glucose (mg/dL) 255 H 306 H Random Glucose 355 H* D Calcium 9.2 Phosphorus Magnesium Total Bilirubin AST ALT Alkaline Phosphatase Total Protein Albumin Globulin Albumin/Globulin Ratio Urine Color Urine Appearance Urine pH Ur Specific [place] Urine Protein Urine Glucose (UA) Urine Ketones Urine Blood Urine Nitrate Urine Bilirubin Urine Urobilinogen Ur Leukocyte Esterase Urine RBC Urine WBC Ur Epithelial Cells Critical Care Progress Note - Nutrition Nutrition: Nutrition Category Date Time Status Liquid Diet [DIET] Diets 01/18/18 Lunch Ordered Addendum Addendum: 01/19/18 14:11 ICU Attending Addendum: Patient seen and examined. Case reviewed on round with housestaff. Agree with resident note above with the following additions/exceptions: 62M with hx of CAD/CABG and HTN admitted with 3 days of abd pain likely acalculous cholecystitis s/p open subtotal cholecystectomy with cholecystostomy tube placement Surg on board for post-op management for subtotal cholecystectomy/tube. BP has been elevated, possibly from hyperNa in conjunction with underlying hypertension. At home he is on: Valsartan/HCTZ 320/12.5 (or Olmesartan 40mg?) Currently on coreg 12.5 BID and PO Hydral 25 QID holding off on ARB due to BOOM Will start Imdur 60 daily cardio on board managing bP meds As for hyperNa, likely from fluid loss katie-op as well as NS given with abx. Switched to D5 with abx. Free water deficit is about 8L. Sodium should not drop by more than 8-10 per 24 hours. Today's goal will be to give 4L d5W over 24 hours. Will take cautious approach at 150cc /hr because must also consider stoppage of NS administration with abx. F/u Chem q 4 hours Rest of care as above Bang Moreno MD [employer] Critical Care Time 30mins
--- NOTE | 2018-01-19 11:30 | PN ---
DATE: 01/19/2018 CARDIOLOGY FOLLOWUP SUBJECTIVE: The patient is in bed complaining of abdominal pain, status post surgery. OBJECTIVE: VITAL SIGNS: Blood pressure varies from 159 to 171 systolic, heart rates in the 80s. NECK: Negative JVD. LUNGS: Decreased breath sounds. HEART: Reveal S1, S2. EXTREMITIES: Without edema. LABORATORY DATA: White count is 16.8, hemoglobin of 12.4. Chemistries: BUN and creatinine is down to 41 and 2.1 with a GFR 39. Sodium is 156 with a glucose of 287. IMPRESSION: 1. Status post gallbladder surgery. 2. Sepsis. 3. History of coronary artery bypass surgery. 4. History of percutaneous transluminal coronary angioplasty and stent. 5. Accelerated hypertension. 6. Diabetes mellitus. 7. Obesity. Given these findings, we will increase his isosorbide for better blood pressure control. In addition, we will add valsartan to help his blood pressure control. Jamil Sosa MD
--- NOTE | 2018-01-19 12:14 | CP.PCM.PN ---
Subjective - Date & Time of Evaluation Date of Evaluation: 01/18/18 Time of Evaluation: 09:40 - Subjective Subjective: Still with occasional pain in the abdomen, no fevers, no diarrhea. Objective - Vital Signs/Intake and Output Vital Signs (last 24 hours): Temp Pulse Resp BP Pulse Ox 97.1 F L 95 H 21 129/70 97 01/18/18 18:00 01/18/18 21:01 01/18/18 18:00 01/18/18 21:01 01/18/18 21:01 Intake and Output: 01/18/18 01/19/18 18:59 06:59 Intake Total 1970 Output Total 690 Balance 1280 - Medications Medications: Current Medications Acetaminophen (Tylenol 325mg Tab) 650 mg PO Q6H PRN PRN Reason: Fever >100.4 F Last Admin: 01/18/18 05:57 Dose: 650 mg Carvedilol (Coreg) 12.5 mg PO BID [facility] Last Admin: 01/18/18 18:03 Dose: 12.5 mg Heparin Sodium (Porcine) (Heparin) 5,000 units SC Q8 [facility] PRN Reason: Protocol Last Admin: 01/18/18 21:03 Dose: 5,000 units Hydralazine HCl (Apresoline) 25 mg PO QID [facility] Last Admin: 01/18/18 18:08 Dose: Not Given Hydromorphone HCl (Dilaudid) 0.5 mg IVP Q2H PRN PRN Reason: Pain, moderate (4-7) Last Admin: 01/18/18 20:30 Dose: 0.5 mg Hydromorphone HCl (Dilaudid 0.2 Mg/Ml Lead Esthetician) 30 mls @ 0 mls/hr IV PRN PRN; Protocol; Per Protocol PRN Reason: ORGANIC SEARCH LEAD PER MD ORDER Last Admin: 01/18/18 08:13 Dose: 1 mls/hr Acetaminophen (Ofirmev) 1,000 mg in 100 mls @ 400 mls/hr IVPB Q6H PRN PRN Reason: Pain, moderate (4-7) Stop: 01/20/18 06:51 Last Admin: 01/18/18 06:57 Dose: 400 mls/hr Meropenem 500 mg/ Sodium (Chloride) 50 mls @ 100 mls/hr IVPB Q8 [facility] PRN Reason: Protocol Stop: 01/27/18 14:01 Last Admin: 01/18/18 21:03 Dose: 100 mls/hr Dextrose (Dextrose 5% In Water 1000 Ml) 1,000 mls @ 125 mls/hr IV .Q8H [facility] Last Admin: 01/18/18 20:31 Dose: 125 mls/hr Insulin Detemir (Levemir) 10 unit SC HS [facility] Last Admin: 01/18/18 21:02 Dose: 10 units Insulin Human Regular (Humulin R High) 0 units SC Q4H [facility] PRN Reason: Protocol Isosorbide Mononitrate (Imdur Er) 30 mg PO DAILY [facility] Last Admin: 01/18/18 11:19 Dose: Not Given Ondansetron HCl (Zofran Inj) 4 mg IVP ONCE PRN PRN Reason: Nausea/Vomiting Pantoprazole Sodium (Protonix Inj) 40 mg IVP 0600 [facility] Last Admin: 01/18/18 05:07 Dose: 40 mg - Labs Labs: 01/18/18 05:00 01/18/18 18:00 PT 15.2 SECONDS (9.4-12.5) H 01/16/18 05:25 INR 1.31 01/16/18 05:25 APTT 28.0 Seconds (25.1-36.5) 01/16/18 05:25 - Constitutional Appears: Chronically Ill - Head Exam Head Exam: NORMAL INSPECTION - Respiratory Exam Respiratory Exam: Decreased Breath Sounds - Cardiovascular Exam Cardiovascular Exam: +S1, +S2 - GI/Abdominal Exam GI & Abdominal Exam: Soft. absent: Tenderness Additional comments: abdominal drain in place Assessment and Plan - Assessment and Plan (Free Text) Plan: Assessment Severe sepsis with acute renal failure due to acute acalculous cholecystitis S/ P subtotal cholecystectomy with cholecystostomy POD #2 obesity with BMI 37 CAD S/P CABG HTN DM colon cancer Plan continue renally-adjusted Merrem - follow up further plans of Surgery will continue to monitor clinically
--- NOTE | 2018-01-19 12:20 | PN ---
DATE: 01/19/2018 SUBJECTIVE: He is resting in the Intensive Care Unit. His is present. He is pleasantly confused today, I feel it could be from the [employer] pump of Dilaudid. They are going to change it to every 2 hours as needed. He is on Apresoline, Coreg, Cozaar, dextrose, Dilaudid now as needed every 2 hours, Ecotrin, heparin, insulin, Imdur, Levemir, Merrem IV, Protonix, Tylenol, Zofran. OBJECTIVE: VITAL SIGNS: He has a 98 temperature, 86 pulse, 159/84 blood pressure, 98% O2 sat on oxygen. HEENT: Head is atraumatic, normocephalic. A little daze this morning. HEART: Regular rate. LUNGS: Decreased breath sounds. ABDOMEN: Still decreased bowel sounds. Mildly distended. No guarding, no rebound, no CVA tenderness. EXTREMITIES: Have no edema. DATA: He has a 16.8 white count, still holding high; 12.7 hemoglobin; 41.5 hematocrit with 280 platelets. Sodium 156 which is high, his IV fluids. BUN is 41, creatinine 2.1, a little better. GFR is 32, sugar is 287. Calcium is 9.1. Magnesium 2.9, total bili is 0.5, AST is 65, ALT is 94, alk phos 145 and a little bit better. Continue with aggressive treatment and care, is being seen by the mat tester, Infectious Disease, Surgery and Cardiology. He has severe sepsis, acute renal failure and is status post partial cholecystectomy now with tubes in place and IV antibiotics. We will continue to monitor in the Intensive Care Unit. I will check his labs tomorrow. Steve Boucher DO MTDD
[2018-01-19 12:55] LABS: CALCIUM 9.2 mg/dL (8.4-10.5)
--- NOTE | 2018-01-19 13:38 | CP.PCM.CON ---
History of Present Illness - History of Present Illness History of Present Illness: Nephrology Consultation Note: Assessment: Stable Acute Kidney Injury (N17.9) likely due to ATN multi-factorial: sepsis, contrast induced. r/o obstruction/retention sepsis Hypernatremia BPH aculcuous cholecystitis s/p open brent diabetes Mellitus (few years), hypertension (40 years) obesity CAD s/p CABG, colon CA Plan No acute need for renal replacement therapy at this time. Hypertension control with meds as ordered. Maintain hemodynamics stable. Avoid hypotension. Patient started on ARB, consider to hold if cr continue to rise. can add CCB as norvasc Monitor Input/Output, daily weights and renal function with basic metabolic panel continue with hypotonic fluids, change to 0.45% soon once Na <150 as pt with hyperglycemia with D5W alone check bladder scan r/o retention started on flomax 0.4 mg/day Check urine analysis, spot protein/creatinine, albumin/creatinine ratio, urine for sodium, K and osmol. Dose meds/antibiotics for reduced GFR. Avoid fleets enema/magnesium based laxatives. Avoid nephrotoxins/NSAIDs/ iodinated contrast (unless needed emergently) Glycemic control Further work up/management as per primary team Thanks for allowing me to participate in care of your patient. Will follow patient with you. Please call if any Qs. had d/w team Dr Sheng Lundberg Office: [phone] Chief Complaint; pain abdomen Reason for consult: Acute Kidney Injury HPI: Pt is a 62 M with hx of diabetes Mellitus (few years), hypertension (40 years) obesity CAD s/p CABG, colon CA presented with complaints of pain abdomen and underwent cholecystectomy on 01/17/18. pt had sepsis, cardiac cath, BOOM and hypernatemia, HTN urgency during course hence renal consulted Denies OTC/herbal meds or NSAIDs had recent iodinated contrast exposure on 01/15 and 01/16. No obvious episodes of low BP. pt reports hx of enlarged prostate and difficulty in urination due to it ROS: Cardiovascular: No chest pain. Pulmonary: No shortness of breath Gastrointestinal: c/o abdominal soreness No nausea. No vomiting. Genitourinary: No pain while urinating. Denies blood in urine. has to strain during urination All other negative except as mentioned in HPI Physical Examination: General Appearance: Comfortable, in no acute respiratory distress, co-operative . obese Vitals reviewed and noted as below Head; Atraumatic, normocephalic ENT: no ulcers no thrush. Tongue is midline. Oropharynx: no rash or ulcers. EYES: Pupils are equal, round and reactive to light accommodation. Eye muscles and extraocular movement intact. Sclera is anicteric. Neck; supple no lymphadenopathy, no thyromegaly or bruit Lungs: Normal respiratory rate/effort. Breath sounds bilateral equal and clear Heart: Normal rate. s1s2 normal. No rub or gallop. Extremities: no edema. No varicose veins Neurological: Patient is alert, awake and oriented to person, place and time. No focal deficit. Strength bilateral appropriate and equal Skin: Warm and dry. Normal turgor. No rash. Palpitation: Normal elasticity for age Abdomen: Abdomen is soft. Bowel sounds +. There is no abdominal tenderness, no guarding/rigidity no organomegaly. exam limited due to dressings Psych: normal insight and normal affect/mood MSK: no joint tenderness or swelling. Digits and nails normal, no deformity : kidney not palpable. dullness over bladder area Labs/imaging reviewed. Past medical history, past surgical history, family history, social history, allergy reviewed and noted as below Family hx: no hx of CKD. Rest non-contributory work up: UA 1.015 no blood. trace protein imaging: enlarged prostate and fatty liver Past Patient History - Past Medical History & Family History Past Medical History?: Yes - Past Social History Smoking Status: Never Smoked - CARDIAC Hx Cardiac Disorders: Yes Hx Hypercholesterolemia: Yes Hx Hypertension: Yes Other/Comment: CAD s/p quadruple CABG, subsequent coronary stents - PULMONARY Hx Respiratory Disorders: No - NEUROLOGICAL Hx Neurological Disorder: No - HEENT Hx HEENT Problems: No - RENAL Hx Chronic Kidney Disease: No - ENDOCRINE/METABOLIC Hx Endocrine Disorders: Yes Hx Diabetes Mellitus Type 2: Yes - HEMATOLOGICAL/ONCOLOGICAL Hx Blood Transfusions: Yes Hx Blood Transfusion Reaction: No - INTEGUMENTARY Hx Dermatological Problems: No - MUSCULOSKELETAL/RHEUMATOLOGICAL Hx Musculoskeletal Disorders: No Hx Falls: No - GASTROINTESTINAL Hx Gastrointestinal Disorders: Yes (colon cancer 2015 s/p resection) - GENITOURINARY/GYNECOLOGICAL Hx Genitourinary Disorders: No - PSYCHIATRIC Hx Psychophysiologic Disorder: No Hx Substance Use: No - SURGICAL HISTORY Hx Surgeries: Yes - ANESTHESIA Hx Anesthesia Reactions: No Hx Malignant Hyperthermia: No Meds Allergies/Adverse Reactions: Allergies Allergy/AdvReac Type Severity Reaction Status Date / Time lidocaine AdvReac COUGH Verified 01/15/18 18:13 - Medications Medications: Current Medications Acetaminophen (Tylenol 325mg Tab) 650 mg PO Q6H PRN PRN Reason: Fever >100.4 F Last Admin: 01/18/18 05:57 Dose: 650 mg Aspirin (Ecotrin) 81 mg PO DAILY [facility] Carvedilol (Coreg) 12.5 mg PO BID [facility] Last Admin: 01/19/18 09:28 Dose: 12.5 mg Heparin Sodium (Porcine) (Heparin) 5,000 units SC Q8 [facility] PRN Reason: Protocol Last Admin: 01/19/18 05:12 Dose: 5,000 units Hydralazine HCl (Apresoline) 25 mg PO QID [facility] Last Admin: 01/19/18 09:29 Dose: 25 mg Hydromorphone HCl (Dilaudid) 0.5 mg IVP Q2H PRN PRN Reason: Pain, moderate (4-7) Last Admin: 01/19/18 00:41 Dose: 0.5 mg Acetaminophen (Ofirmev) 1,000 mg in 100 mls @ 400 mls/hr IVPB Q6H PRN PRN Reason: Pain, moderate (4-7) Stop: 01/20/18 06:51 Last Admin: 01/18/18 06:57 Dose: 400 mls/hr Meropenem 500 mg/ Dextrose 100 mls @ 100 mls/hr IVPB Q8 [facility] PRN Reason: Protocol Dextrose (Dextrose 5% In Water 1000 Ml) 1,000 mls @ 150 mls/hr IV .Q6H40M [facility] Last Admin: 01/19/18 11:30 Dose: 150 mls/hr Insulin Detemir (Levemir) 10 unit SC HS [facility] Last Admin: 01/18/18 21:02 Dose: 10 units Insulin Human Regular (Humulin R High) 0 units SC Q4H [facility] PRN Reason: Protocol Last Admin: 01/19/18 12:42 Dose: 10 unit Isosorbide Mononitrate (Imdur) 60 mg PO DAILY [facility] Losartan Potassium (Cozaar) 100 mg PO DAILY [facility] Last Admin: 01/19/18 11:31 Dose: 100 mg Ondansetron HCl (Zofran Inj) 4 mg IVP ONCE PRN PRN Reason: Nausea/Vomiting Pantoprazole Sodium (Protonix Ec Tab) 40 mg PO 0600 [facility] Tamsulosin HCl (Flomax) 0.4 mg PO DAILY [facility] Results - Vital Signs Recent Vital Signs: Last Vital Signs Temp 98.4 F 01/19/18 08:00 Pulse 85 01/19/18 12:38 Resp 21 01/18/18 18:00 BP 126/71 01/19/18 12:38 Pulse Ox 99 01/19/18 11:01 - Labs Result Diagrams: 01/19/18 05:30 01/19/18 12:30 Labs: Laboratory Results - last 24 hr 01/18/18 01/18/18 01/18/18 11:21 16:20 17:46 WBC RBC Hgb Hct MCV MCH MCHC RDW Plt Count MPV Gran % Lymph % (Auto) [place] % (Auto) Eos % (Auto) Baso % (Auto) Gran # Lymph # (Auto) [place] # (Auto) Eos # (Auto) Baso # (Auto) Sodium Potassium Chloride Carbon Dioxide Anion Gap BUN Creatinine Est GFR ( Amer) Est GFR (Non-Af Amer) POC Glucose (mg/dL) 243 H 317 H Random Glucose Calcium Phosphorus Magnesium Total Bilirubin AST ALT Alkaline Phosphatase Total Protein Albumin Globulin Albumin/Globulin Ratio Urine Color Yellow Urine Appearance Clear Urine pH 5.5 Ur Specific [place] 1.015 Urine Protein Trace H Urine Glucose (UA) Negative Urine Ketones Negative Urine Blood Negative Urine Nitrate Negative Urine Bilirubin Negative Urine Urobilinogen 0.2 Ur Leukocyte Esterase Trace H Urine RBC TEST NOT PERFORMED Urine WBC 5 - 10 Ur Epithelial Cells 10 - 12 01/18/18 01/18/18 01/18/18 18:00 20:02 23:29 WBC RBC Hgb Hct MCV MCH MCHC RDW Plt Count MPV Gran % Lymph % (Auto) [place] % (Auto) Eos % (Auto) Baso % (Auto) Gran # Lymph # (Auto) [place] # (Auto) Eos # (Auto) Baso # (Auto) Sodium 154 H Potassium 4.3 Chloride 121 H Carbon Dioxide 27 Anion Gap 10 BUN 44 H Creatinine 2.6 H Est GFR ( Amer) 30 Est GFR (Non-Af Amer) 25 POC Glucose (mg/dL) 256 H 218 H Random Glucose 355 H* D Calcium 9.2 Phosphorus Magnesium Total Bilirubin AST ALT Alkaline Phosphatase Total Protein Albumin Globulin Albumin/Globulin Ratio Urine Color Urine Appearance Urine pH Ur Specific [place] Urine Protein Urine Glucose (UA) Urine Ketones Urine Blood Urine Nitrate Urine Bilirubin Urine Urobilinogen Ur Leukocyte Esterase Urine RBC Urine WBC Ur Epithelial Cells 01/19/18 01/19/18 01/19/18 03:50 05:30 05:30 WBC 16.8 H RBC 4.39 Hgb 12.7 L Hct 41.5 L MCV 94.5 MCH 28.9 MCHC 30.6 L RDW 15.6 H Plt Count 280 MPV 12.8 H Gran % 74.1 H Lymph % (Auto) 14.0 L [place] % (Auto) 10.6 H Eos % (Auto) 1.1 L Baso % (Auto) 0.2 Gran # 12.46 H Lymph # (Auto) 2.4 [place] # (Auto) 1.8 H Eos # (Auto) 0.2 Baso # (Auto) 0.03 Sodium 156 H* Potassium 4.4 Chloride 122 H Carbon Dioxide 28 Anion Gap 11 BUN 41 H Creatinine 2.1 H Est GFR ( Amer) 39 Est GFR (Non-Af Amer) 32 POC Glucose (mg/dL) 239 H Random Glucose 287 H Calcium 9.1 Phosphorus 2.9 Magnesium 2.9 H Total Bilirubin 0.5 AST 65 H D ALT 94 H Alkaline Phosphatase 145 H Total Protein 6.9 Albumin 3.3 Globulin 3.6 Albumin/Globulin Ratio 0.9 L Urine Color Urine Appearance Urine pH Ur Specific [place] Urine Protein Urine Glucose (UA) Urine Ketones Urine Blood Urine Nitrate Urine Bilirubin Urine Urobilinogen Ur Leukocyte Esterase Urine RBC Urine WBC Ur Epithelial Cells 01/19/18 01/19/18 01/19/18 07:43 12:22 12:30 WBC RBC Hgb Hct MCV MCH MCHC RDW Plt Count MPV Gran % Lymph % (Auto) [place] % (Auto) Eos % (Auto) Baso % (Auto) Gran # Lymph # (Auto) [place] # (Auto) Eos # (Auto) Baso # (Auto) Sodium 153 H Potassium 4.5 Chloride 121 H Carbon Dioxide 25 Anion Gap 12 BUN 40 H Creatinine 1.9 H Est GFR ( Amer) 44 Est GFR (Non-Af Amer) 36 POC Glucose (mg/dL) 255 H 306 H Random Glucose 355 H* D Calcium 9.2 Phosphorus Magnesium Total Bilirubin AST ALT Alkaline Phosphatase Total Protein Albumin Globulin Albumin/Globulin Ratio Urine Color Urine Appearance Urine pH Ur Specific [place] Urine Protein Urine Glucose (UA) Urine Ketones Urine Blood Urine Nitrate Urine Bilirubin Urine Urobilinogen Ur Leukocyte Esterase Urine RBC Urine WBC Ur Epithelial Cells
[2018-01-19] MEDS: Meropenem 500 MG in Dextrose 5% In Water 100 ML IVPB SCH ×2 (14:25→22:00)
--- NOTE | 2018-01-19 14:28 | CP.PCM.PN ---
Subjective - Date & Time of Evaluation Date of Evaluation: 01/19/18 Time of Evaluation: 14:26 - Subjective Subjective: General Surgery Progress Note for Dr. Luis This 62M was seen and examined this AM at bedside. Overnight he had some delerium, so this AM pain Rx was decreased. He has 30cc bloody output from blakje and 60cc sanguinous outrput from choletube.Denies chest pain or SOB. Objective - Vital Signs/Intake and Output Vital Signs (last 24 hours): Temp Pulse Resp BP Pulse Ox 98.4 F 85 21 126/71 99 01/19/18 08:00 01/19/18 12:38 01/18/18 18:00 01/19/18 12:38 01/19/18 11:01 Intake and Output: 01/19/18 01/19/18 06:59 18:59 Intake Total 1880 Output Total 1220 Balance 660 - Medications Medications: Current Medications Acetaminophen (Tylenol 325mg Tab) 650 mg PO Q6H PRN PRN Reason: Fever >100.4 F Last Admin: 01/18/18 05:57 Dose: 650 mg Aspirin (Ecotrin) 81 mg PO DAILY [facility] Carvedilol (Coreg) 12.5 mg PO BID [facility] Last Admin: 01/19/18 09:28 Dose: 12.5 mg Heparin Sodium (Porcine) (Heparin) 5,000 units SC Q8 [facility] PRN Reason: Protocol Last Admin: 01/19/18 05:12 Dose: 5,000 units Hydralazine HCl (Apresoline) 25 mg PO QID [facility] Last Admin: 01/19/18 09:29 Dose: 25 mg Hydromorphone HCl (Dilaudid) 0.5 mg IVP Q2H PRN PRN Reason: Pain, moderate (4-7) Last Admin: 01/19/18 00:41 Dose: 0.5 mg Acetaminophen (Ofirmev) 1,000 mg in 100 mls @ 400 mls/hr IVPB Q6H PRN PRN Reason: Pain, moderate (4-7) Stop: 01/20/18 06:51 Last Admin: 01/18/18 06:57 Dose: 400 mls/hr Meropenem 500 mg/ Dextrose 100 mls @ 100 mls/hr IVPB Q8 [facility] PRN Reason: Protocol Dextrose (Dextrose 5% In Water 1000 Ml) 1,000 mls @ 150 mls/hr IV .Q6H40M [facility] Last Admin: 01/19/18 11:30 Dose: 150 mls/hr Insulin Detemir (Levemir) 10 unit SC HS [facility] Last Admin: 01/18/18 21:02 Dose: 10 units Insulin Human Regular (Humulin R High) 0 units SC Q4H [facility] PRN Reason: Protocol Last Admin: 01/19/18 12:42 Dose: 10 unit Isosorbide Mononitrate (Imdur) 60 mg PO DAILY [facility] Losartan Potassium (Cozaar) 100 mg PO DAILY [facility] Last Admin: 01/19/18 11:31 Dose: 100 mg Ondansetron HCl (Zofran Inj) 4 mg IVP ONCE PRN PRN Reason: Nausea/Vomiting Pantoprazole Sodium (Protonix Ec Tab) 40 mg PO 0600 [facility] Tamsulosin HCl (Flomax) 0.4 mg PO DAILY [facility] - Labs Labs: 01/19/18 05:30 01/19/18 12:30 PT 15.2 SECONDS (9.4-12.5) H 01/16/18 05:25 INR 1.31 01/16/18 05:25 APTT 28.0 Seconds (25.1-36.5) 01/16/18 05:25 - Constitutional Appears: Non-toxic, No Acute Distress - Head Exam Head Exam: ATRAUMATIC, NORMOCEPHALIC - Eye Exam Eye Exam: EOMI - ENT Exam ENT Exam: Mucous Membranes Moist - Respiratory Exam Respiratory Exam: NORMAL BREATHING PATTERN - Cardiovascular Exam Cardiovascular Exam: Tachycardia, +S1, +S2 - GI/Abdominal Exam GI & Abdominal Exam: Soft, Tenderness. absent: Distended, Firm, Guarding, Rigid Additional comments: Dressings clean dry and intact - Neurological Exam Neurological Exam: Alert, Awake - Psychiatric Exam Psychiatric exam: Normal Affect, Normal Mood - Skin Skin Exam: Dry, Intact Assessment and Plan - Assessment and Plan (Free Text) Assessment: 62M with acalculous cholecystitis is is POD#2 s/p lap converted to open subtotal cholecystectomy with cholecystostomy tube placement. Incentive spirometer Pain control Monitor drain outputs Regular diet IVF OOB to chair Further recs per Dr. Toby Plunkett PGY3
[2018-01-19 16:47] LABS: CALCIUM 9.2 mg/dL (8.4-10.5)
[2018-01-19] MEDS: Insulin Detemir 100 units/ml Vial (Levemir) SC SCH (21:59)
[2018-01-20] MEDS: Insulin Reg-HIGH-Coverage SC SCH ×7 (00:09→22:48)
[2018-01-20 00:11] LABS: CALCIUM 8.9 mg/dL (8.4-10.5)
[2018-01-20] MEDS: HYDROmorphone 0.5 mg/0.5 ml ISec IVP PRN ×3 (00:42→04:50)
[2018-01-20] MEDS: Meropenem 500 MG in Dextrose 5% In Water 100 ML IVPB SCH (06:14)
[2018-01-20] MEDS: Pantoprazole 40 mg EC Tab PO SCH (06:14)
[2018-01-20 07:52] LABS: ALB/GLOB RATIO 0.9 (1.1-1.8); ALBUMIN 3.1 g/dL (3.0-4.8); CALCIUM 8.8 mg/dL (8.4-10.5)
[2018-01-20 08:03] LABS: HEMOGLOBIN 12.5 g/dL (14.0-18.0); MEAN CELL VOLUME 93.3 fl (80.0-105.0); MEAN CORPUSCULAR HEMOGLOBIN 29.8 pg (25.0-35.0); MEAN CORPUSCULAR HGB CONC 31.9 g/dl (31.0-37.0); MEAN PLATELET VOLUME 13.1 fl (7.0-11.0); RBC 4.2 10^6/uL (3.5-6.1); RED CELL DISTRIBUTION WIDTH 15.5 % (11.5-14.5); WHITE BLOOD COUNT 12.5 10^3/ul (4.5-11.0)
--- NOTE | 2018-01-20 09:42 | CP.CCUPN ---
<Ally Alva - Last Filed: 01/20/18 11:03> CCU Subjective - Physician Review Subjective (Free Text): ICU progress note for Dr. Tiffanie Alva, PGY 1 Patient seen and examined this morning at bedside. Overnight his Blood glucose was elevated. He has been afebrile, nontachycardic, and normotensive overnight. He is awake alert and oriented to person place and time. He denies flatus and BM but endorses mild nausea. He endorses mild incisional pain. He otherwise denies BERG, CP, SOB, extremity pain. 01/20/18 09:41 CCU Objective - Vital Signs / Intake & Output Vital Signs (Last 4 hours): Vital Signs Pulse 01/20/18 06:00 70 Intake and Output (Last 8hrs): Intake & Output 01/19/18 01/20/18 01/20/18 22:59 06:59 14:59 Intake Total 2550 1750 Output Total 1185 800 120 Balance 1365 950 -120 Weight 257 lb Intake: IV 1900 1750 Right Wrist 1750 abx 100 d5w 1800 Oral 650 Output: Drainage 35 120 Abdomen 30 120 Medial Abdomen 5 0 Urine 1150 800 Urine, Voided 1150 800 - Physical Exam Head: Positive for: Atraumatic, Normocephalic Extroacular Muscles: Positive for: EOMI Conjunctiva: Positive for: Normal Mouth: Positive for: Dry Neck: Positive for: Normal Range of Motion Respiratory/Chest: Positive for: Clear to Auscultation, Good Air Exchange. Negative for: Respiratory Distress, Accessory Muscle Use Cardiovascular: Positive for: Regular Rate and Rhythm, Normal S1, S2. Negative for: Murmurs Abdomen: Positive for: Tenderness (RLQ/ R sided; non peritoneal mostly in area of drain), Distention, Normal Bowel Sounds, Scars (sternotomy scar), Other (Abdomen distended, tympanic; dressing CDI, removed today, drain dressings placed). Negative for: Peritoneal Signs, Rebound, Guarding, McBurney's Point Tender, Rovsing's Sign Present Upper Extremity: Positive for: Normal Inspection, NORMAL PULSES. Negative for: Cyanosis, Edema Lower Extremity: Positive for: Normal Inspection, NORMAL PULSES, Other (Distal pulses 2+ BL Dorsalis Pedis). Negative for: Edema, CALF TENDERNESS Neurological: Positive for: GCS=15, Speech Normal, Motor Func Grossly Intact Skin: Positive for: Warm, Dry, Normal Color, Other (right subcostal incision and umbilical incision CDI with ambar, drain sites cdi). Negative for: Rashes Lymphatic: Negative for: Cervical Adenopathy Psychiatric: Positive for: Alert, Oriented x 3, Normal Insight - Medications Active Medications: Active Medications Generic Name Dose Route Start Last Admin Trade Name Freq PRN Reason Stop Dose Admin Acetaminophen 650 mg 01/18/18 05:47 01/18/18 05:57 Tylenol 325mg Tab PO 650 mg Q6H PRN Administration Fever >100.4 F Aspirin 81 mg 01/19/18 10:30 01/19/18 13:00 Ecotrin PO 81 mg DAILY AUGUST Administration Carvedilol 12.5 mg 01/18/18 10:00 01/19/18 18:39 Coreg PO 12.5 mg BID AUGUST Administration Heparin Sodium (Porcine) 5,000 units 01/18/18 14:00 01/20/18 06:14 Heparin SC 5,000 units Q8 AUGUST Administration Protocol Hydralazine HCl 25 mg 01/18/18 14:19 01/19/18 21:46 Apresoline PO 25 mg QID AUGUST Administration Hydromorphone HCl 0.5 mg 01/17/18 15:50 01/20/18 04:50 Dilaudid IVP 0.5 mg Q2H PRN Administration Pain, moderate (4-7) Dextrose 1,000 mls @ 150 mls/hr 01/19/18 11:26 01/20/18 00:53 Dextrose 5% In Water 1000 Ml IV 150 mls/hr .Q6H40M AUGUST Administration Meropenem 500 mg/ Dextrose 50 mls @ 100 mls/hr 01/20/18 10:00 IVPB Q12 AUGUST Protocol Insulin Detemir 10 unit 01/18/18 22:00 01/19/18 21:59 Levemir SC 10 units HS AUGUST Administration Insulin Human Regular 0 units 01/18/18 19:30 01/20/18 08:32 Humulin R High SC 4 unit Q4H AUGUST Administration Protocol Isosorbide Mononitrate 60 mg 01/19/18 10:19 Imdur PO DAILY AUGUST Losartan Potassium 100 mg 01/19/18 10:30 01/19/18 11:31 Cozaar PO 100 mg DAILY AUGUST Administration Ondansetron HCl 4 mg 01/17/18 12:34 Zofran Inj IVP ONCE PRN Nausea/Vomiting Pantoprazole Sodium 40 mg 01/20/18 06:00 01/20/18 06:14 Protonix Ec Tab PO 40 mg 0600 AUGUST Administration Tamsulosin HCl 0.4 mg 01/19/18 13:30 01/19/18 18:42 Flomax PO 0.4 mg DAILY AUGUST Administration - Patient Studies Lab Studies: Microbiology Studies 01/16/18 21:40 Blood Culture - Preliminary Blood NO GROWTH AFTER 3 DAYS 01/16/18 21:40 Blood Culture - Preliminary Blood NO GROWTH AFTER 3 DAYS 01/18/18 16:20 Urine Culture - Final Urine No Growth (<1,000 CFU/ML) 01/17/18 10:44 Gram Stain - Final Other: Please Indicate Lab Studies 01/20/18 01/20/18 01/20/18 Range/Units 07:52 06:58 06:40 WBC (4.5-11.0) 10^3/ul RBC (3.5-6.1) 10^6/uL Hgb (14.0-18.0) g/dL Hct (42.0-52.0) % MCV (80.0-105.0) fl MCH (25.0-35.0) pg MCHC (31.0-37.0) g/dl RDW (11.5-14.5) % Plt Count (120.0-450.0) 10^3/uL MPV (7.0-11.0) fl Sodium 151 H (132-148) mmol/L Potassium 4.4 (3.6-5.0) mmol/L Chloride 118 H (98-107) mmol/L Carbon Dioxide 25 (21-33) mmol/L Anion Gap 11 (10-20) BUN 47 H (7-21) mg/dL Creatinine 1.7 H (0.8-1.5) mg/dl Est GFR ( Amer) 50 Est GFR (Non-Af Amer) 41 POC Glucose (mg/dL) 231 H 239 H (65-110) mg/dL Random Glucose 256 H (70-110) mg/dL Calcium 8.8 (8.4-10.5) mg/dL Phosphorus 3.2 (2.5-4.5) mg/dL Magnesium 2.8 H (1.7-2.2) mg/dL Total Bilirubin 0.5 (0.2-1.3) mg/dL AST 40 (17-59) U/L ALT 70 H (7-56) U/L Alkaline Phosphatase 116 (38-126) U/L Total Protein 6.6 (5.8-8.3) g/dL Albumin 3.1 (3.0-4.8) g/dL Globulin 3.6 gm/dL Albumin/Globulin Ratio 0.9 L (1.1-1.8) 01/20/18 01/19/18 01/19/18 Range/Units 06:40 23:40 20:39 WBC 12.5 H D (4.5-11.0) 10^3/ul RBC 4.20 (3.5-6.1) 10^6/uL Hgb 12.5 L (14.0-18.0) g/dL Hct 39.2 L (42.0-52.0) % MCV 93.3 (80.0-105.0) fl MCH 29.8 (25.0-35.0) pg MCHC 31.9 (31.0-37.0) g/dl RDW 15.5 H (11.5-14.5) % Plt Count 239 (120.0-450.0) 10^3/uL MPV 13.1 H (7.0-11.0) fl Sodium 149 H (132-148) mmol/L Potassium 4.2 (3.6-5.0) mmol/L Chloride 117 H (98-107) mmol/L Carbon Dioxide 25 (21-33) mmol/L Anion Gap 11 (10-20) BUN 48 H (7-21) mg/dL Creatinine 2.2 H (0.8-1.5) mg/dl Est GFR ( Amer) 37 Est GFR (Non-Af Amer) 30 POC Glucose (mg/dL) 245 H (65-110) mg/dL Random Glucose 284 H (70-110) mg/dL Calcium 8.9 (8.4-10.5) mg/dL Phosphorus (2.5-4.5) mg/dL Magnesium (1.7-2.2) mg/dL Total Bilirubin (0.2-1.3) mg/dL AST (17-59) U/L ALT (7-56) U/L Alkaline Phosphatase (38-126) U/L Total Protein (5.8-8.3) g/dL Albumin (3.0-4.8) g/dL Globulin gm/dL Albumin/Globulin Ratio (1.1-1.8) 01/19/18 01/19/18 01/19/18 Range/Units 20:13 16:25 16:03 WBC (4.5-11.0) 10^3/ul RBC (3.5-6.1) 10^6/uL Hgb (14.0-18.0) g/dL Hct (42.0-52.0) % MCV (80.0-105.0) fl MCH (25.0-35.0) pg MCHC (31.0-37.0) g/dl RDW (11.5-14.5) % Plt Count (120.0-450.0) 10^3/uL MPV (7.0-11.0) fl Sodium 151 H 153 H (132-148) mmol/L Potassium 4.0 4.6 (3.6-5.0) mmol/L Chloride 117 H 120 H (98-107) mmol/L Carbon Dioxide 26 26 (21-33) mmol/L Anion Gap 11 12 (10-20) BUN 46 H 42 H (7-21) mg/dL Creatinine 2.2 H 2.2 H (0.8-1.5) mg/dl Est GFR ( Amer) 37 37 Est GFR (Non-Af Amer) 30 30 POC Glucose (mg/dL) 261 H (65-110) mg/dL Random Glucose 264 H 305 H* (70-110) mg/dL Calcium 9.0 9.2 (8.4-10.5) mg/dL Phosphorus (2.5-4.5) mg/dL Magnesium (1.7-2.2) mg/dL Total Bilirubin (0.2-1.3) mg/dL AST (17-59) U/L ALT (7-56) U/L Alkaline Phosphatase (38-126) U/L Total Protein (5.8-8.3) g/dL Albumin (3.0-4.8) g/dL Globulin gm/dL Albumin/Globulin Ratio (1.1-1.8) 01/19/18 01/19/18 01/19/18 Range/Units 12:30 12:22 07:43 WBC (4.5-11.0) 10^3/ul RBC (3.5-6.1) 10^6/uL Hgb (14.0-18.0) g/dL Hct (42.0-52.0) % MCV (80.0-105.0) fl MCH (25.0-35.0) pg MCHC (31.0-37.0) g/dl RDW (11.5-14.5) % Plt Count (120.0-450.0) 10^3/uL MPV (7.0-11.0) fl Sodium 153 H (132-148) mmol/L Potassium 4.5 (3.6-5.0) mmol/L Chloride 121 H (98-107) mmol/L Carbon Dioxide 25 (21-33) mmol/L Anion Gap 12 (10-20) BUN 40 H (7-21) mg/dL Creatinine 1.9 H (0.8-1.5) mg/dl Est GFR ( Amer) 44 Est GFR (Non-Af Amer) 36 POC Glucose (mg/dL) 306 H 255 H (65-110) mg/dL Random Glucose 355 H* D (70-110) mg/dL Calcium 9.2 (8.4-10.5) mg/dL Phosphorus (2.5-4.5) mg/dL Magnesium (1.7-2.2) mg/dL Total Bilirubin (0.2-1.3) mg/dL AST (17-59) U/L ALT (7-56) U/L Alkaline Phosphatase (38-126) U/L Total Protein (5.8-8.3) g/dL Albumin (3.0-4.8) g/dL Globulin gm/dL Albumin/Globulin Ratio (1.1-1.8) Laboratory Results - last 24 hr 01/19/18 01/19/18 01/19/18 07:43 12:22 12:30 WBC RBC Hgb Hct MCV MCH MCHC RDW Plt Count MPV Sodium 153 H Potassium 4.5 Chloride 121 H Carbon Dioxide 25 Anion Gap 12 BUN 40 H Creatinine 1.9 H Est GFR ( Amer) 44 Est GFR (Non-Af Amer) 36 POC Glucose (mg/dL) 255 H 306 H Random Glucose 355 H* D Calcium 9.2 Phosphorus Magnesium Total Bilirubin AST ALT Alkaline Phosphatase Total Protein Albumin Globulin Albumin/Globulin Ratio 01/19/18 01/19/18 01/19/18 16:03 16:25 20:13 WBC RBC Hgb Hct MCV MCH MCHC RDW Plt Count MPV Sodium 153 H 151 H Potassium 4.6 4.0 Chloride 120 H 117 H Carbon Dioxide 26 26 Anion Gap 12 11 BUN 42 H 46 H Creatinine 2.2 H 2.2 H Est GFR ( Amer) 37 37 Est GFR (Non-Af Amer) 30 30 POC Glucose (mg/dL) 261 H Random Glucose 305 H* 264 H Calcium 9.2 9.0 Phosphorus Magnesium Total Bilirubin AST ALT Alkaline Phosphatase Total Protein Albumin Globulin Albumin/Globulin Ratio 01/19/18 01/19/18 01/20/18 20:39 23:40 06:40 WBC 12.5 H D RBC 4.20 Hgb 12.5 L Hct 39.2 L MCV 93.3 MCH 29.8 MCHC 31.9 RDW 15.5 H Plt Count 239 MPV 13.1 H Sodium 149 H Potassium 4.2 Chloride 117 H Carbon Dioxide 25 Anion Gap 11 BUN 48 H Creatinine 2.2 H Est GFR ( Amer) 37 Est GFR (Non-Af Amer) 30 POC Glucose (mg/dL) 245 H Random Glucose 284 H Calcium 8.9 Phosphorus Magnesium Total Bilirubin AST ALT Alkaline Phosphatase Total Protein Albumin Globulin Albumin/Globulin Ratio 01/20/18 01/20/18 01/20/18 06:40 06:58 07:52 WBC RBC Hgb Hct MCV MCH MCHC RDW Plt Count MPV Sodium 151 H Potassium 4.4 Chloride 118 H Carbon Dioxide 25 Anion Gap 11 BUN 47 H Creatinine 1.7 H Est GFR ( Amer) 50 Est GFR (Non-Af Amer) 41 POC Glucose (mg/dL) 239 H 231 H Random Glucose 256 H Calcium 8.8 Phosphorus 3.2 Magnesium 2.8 H Total Bilirubin 0.5 AST 40 ALT 70 H Alkaline Phosphatase 116 Total Protein 6.6 Albumin 3.1 Globulin 3.6 Albumin/Globulin Ratio 0.9 L Fingerstick Blood Sugar Results: 231 Review of Systems - Review of Systems All systems: reviewed and no additional remarkable complaints except Review of Systems: as per HPI Critical Care Progress Note - Prophylaxis GI Prophylaxis GI: PPI - Prophylaxis DVT Prophylaxis DVT: Heparin SQ, SCDs - Nutrition Nutrition: Nutrition Category Date Time Status Consistent Carbohydrate [DIET] Diets 01/20/18 Breakfast Ordered Assessment/Plan - Assessment and Plan (Free Text) Assessment: 62M w/ w/PMHx CAD/CABG and HTN admitted with 3 days of abd pain, acalculous cholecystitis. Patient is POD3, s/p lap cholecystectomy converted to open partial cholecystectomy with cholecystostomy tube placement on 01/17 Hospital course is complicated w/ high blood pressure initially requiring tridil drip now controlled with Imdur, coreg and PRN hydralazine. Post op fevers and tachycardia have resolved. Mental status improved to baseline. Patient can be transferred out of ICU today per surgery recs. Plan: Neuro: AAOx3 Moving all extremities past midline GCS 15, no gross neuro deficits Dilaudid for pain control 0.5mg Q2H PRN Cardio: PMH CABG, HTN, HLD, CAD and stent placements HTN + Tachycardia - No longer requiring nitro drip; well controlled/ resolved on current medications C/w imdur 30 QD PO; hydralazine 25 QID PO; Coreg 12.5 Holding home Valsartan/HCTZ CAD - Cardiac cath showed RCA stenosis 50%; EF of 65-70% started on ASA 81 mg HD Stable at this time; Cardiology following, appreciate recs Pulm: Lungs clear bilaterally Saturating well on RA Maintain O2 sats > 90% GI: S/p lap cholecystectomy converted to open subtotal cholecystectomy with cho lecystostomy tube placement on 01/18 Pt advanced to low consistent carb diet today transaminitis resolved, bili normal Alberto drain output 210 overnight with an addition 40 cc this am, serosanguinous, nonbilious Endo: ISS High ACHS Additional 6 units Lispro ACHS Levemir 10 HS Accucheck Q4H Maintain euglycemia Renal: BUN/Cr - 47/1.7 BOOM ; ML Pre renal etiology; improving Hypernatremia in setting of Volume depletion c/w D5w to 150/hr all medications running in NS changed the D5w - q4 BMP to monitor Na Decrease goal Na 146 1950mL Output in last 24H Denies dysuria/ hematuria Will hold Valsartan/HCTz at this time Avoid nephrotoxic agent Heme: patient received 1U PLT 01/17 PLT 289 this AM HH stable otherwise ID: Febrile overnight; managed w/ tylenol overnight WBC decreasing to 16.8 BCx 2/2 negative at 48H C/w Merrem at this time in D5w GIppx: protonix DVTppx: SCDs, heparin - Date & Time Date: 01/20/18 <TiffanieBilal - Last Filed: 01/20/18 17:08> CCU Objective - Vital Signs / Intake & Output Vital Signs (Last 4 hours): Vital Signs Pulse Resp BP 01/20/18 16:07 6 L 01/20/18 16:00 111/54 L 01/20/18 15:51 16 01/20/18 15:00 123/71 01/20/18 14:59 27 H 01/20/18 14:00 84 113/68 01/20/18 13:59 31 H 01/20/18 13:36 35 H Intake and Output (Last 8hrs): Intake & Output 01/20/18 01/20/18 01/20/18 06:59 14:59 22:59 Intake Total 1750 Output Total 800 120 Balance 950 -120 Weight 116.573 kg Intake: IV 1750 Right Wrist 1750 Output: Drainage 120 Abdomen 120 Medial Abdomen 0 Urine 800 Urine, Voided 800 - Medications Active Medications: Active Medications Generic Name Dose Route Start Last Admin Trade Name Freq PRN Reason Stop Dose Admin Acetaminophen 650 mg 01/18/18 05:47 01/18/18 05:57 Tylenol 325mg Tab PO 650 mg Q6H PRN Administration Fever >100.4 F Aspirin 81 mg 01/19/18 10:30 01/19/18 13:00 Ecotrin PO 81 mg DAILY AUGUST Administration Carvedilol 12.5 mg 01/18/18 10:00 01/19/18 18:39 Coreg PO 12.5 mg BID AUGUST Administration Heparin Sodium (Porcine) 5,000 units 01/18/18 14:00 01/20/18 14:56 Heparin SC 5,000 units Q8 AUGUST Administration Protocol Hydralazine HCl 25 mg 01/18/18 14:19 01/20/18 14:00 Apresoline PO Not Given QID AUGUST Hydromorphone HCl 0.5 mg 01/17/18 15:50 01/20/18 04:50 Dilaudid IVP 0.5 mg Q2H PRN Administration Pain, moderate (4-7) Meropenem 500 mg/ Dextrose 50 mls @ 100 mls/hr 01/20/18 11:05 01/20/18 14:54 IVPB 100 mls/hr Q12 AUGUST Administration Protocol Sodium Chloride 1,000 mls @ 100 mls/hr 01/20/18 17:00 01/20/18 17:04 Sodium Chloride 0.45% IV 100 mls/hr .Q10H AUGUST Administration Insulin Detemir 10 unit 01/18/18 22:00 01/19/18 21:59 Levemir SC 10 units HS AUGUST Administration Insulin Human Lispro 6 units 01/20/18 11:30 01/20/18 12:14 Humalog SC 6 unit ACHS AUGUST Administration Insulin Human Regular 0 units 01/18/18 19:30 01/20/18 12:12 Humulin R High SC 10 unit Q4H AUGUST Administration Protocol Isosorbide Mononitrate 60 mg 01/19/18 10:19 Imdur PO DAILY AUGUST Losartan Potassium 100 mg 01/19/18 10:30 01/19/18 11:31 Cozaar PO 100 mg DAILY AUGUST Administration Ondansetron HCl 4 mg 01/17/18 12:34 Zofran Inj IVP ONCE PRN Nausea/Vomiting Pantoprazole Sodium 40 mg 01/20/18 06:00 01/20/18 06:14 Protonix Ec Tab PO 40 mg 0600 AUGUST Administration Tamsulosin HCl 0.4 mg 01/19/18 13:30 01/19/18 18:42 Flomax PO 0.4 mg DAILY AUGUST Administration - Patient Studies Lab Studies: Microbiology Studies 01/17/18 10:44 Gram Stain - Final Other: Please Indicate Body Fluid Culture - Preliminary NO GROWTH AFTER 24 HOURS 01/16/18 21:40 Blood Culture - Preliminary Blood NO GROWTH AFTER 3 DAYS 01/16/18 21:40 Blood Culture - Preliminary Blood NO GROWTH AFTER 3 DAYS 01/18/18 16:20 Urine Culture - Final Urine No Growth (<1,000 CFU/ML) Lab Studies 01/20/18 01/20/18 01/20/18 Range/Units 12:30 12:08 07:52 WBC (4.5-11.0) 10^3/ul RBC (3.5-6.1) 10^6/uL Hgb (14.0-18.0) g/dL Hct (42.0-52.0) % MCV (80.0-105.0) fl MCH (25.0-35.0) pg MCHC (31.0-37.0) g/dl RDW (11.5-14.5) % Plt Count (120.0-450.0) 10^3/uL MPV (7.0-11.0) fl Sodium 150 H (132-148) mmol/L Potassium 4.3 (3.6-5.0) mmol/L Chloride 116 H (98-107) mmol/L Carbon Dioxide 26 (21-33) mmol/L Anion Gap 12 (10-20) BUN 43 H (7-21) mg/dL Creatinine 1.7 H (0.8-1.5) mg/dl Est GFR ( Amer) 50 Est GFR (Non-Af Amer) 41 POC Glucose (mg/dL) 320 H 231 H (65-110) mg/dL Random Glucose 278 H (70-110) mg/dL Calcium 9.2 (8.4-10.5) mg/dL Phosphorus (2.5-4.5) mg/dL Magnesium (1.7-2.2) mg/dL Total Bilirubin (0.2-1.3) mg/dL AST (17-59) U/L ALT (7-56) U/L Alkaline Phosphatase (38-126) U/L Total Protein (5.8-8.3) g/dL Albumin (3.0-4.8) g/dL Globulin gm/dL Albumin/Globulin Ratio (1.1-1.8) 01/20/18 01/20/18 01/20/18 Range/Units 06:58 06:40 06:40 WBC 12.5 H D (4.5-11.0) 10^3/ul RBC 4.20 (3.5-6.1) 10^6/uL Hgb 12.5 L (14.0-18.0) g/dL Hct 39.2 L (42.0-52.0) % MCV 93.3 (80.0-105.0) fl MCH 29.8 (25.0-35.0) pg MCHC 31.9 (31.0-37.0) g/dl RDW 15.5 H (11.5-14.5) % Plt Count 239 (120.0-450.0) 10^3/uL MPV 13.1 H (7.0-11.0) fl Sodium 151 H (132-148) mmol/L Potassium 4.4 (3.6-5.0) mmol/L Chloride 118 H (98-107) mmol/L Carbon Dioxide 25 (21-33) mmol/L Anion Gap 11 (10-20) BUN 47 H (7-21) mg/dL Creatinine 1.7 H (0.8-1.5) mg/dl Est GFR ( Amer) 50 Est GFR (Non-Af Amer) 41 POC Glucose (mg/dL) 239 H (65-110) mg/dL Random Glucose 256 H (70-110) mg/dL Calcium 8.8 (8.4-10.5) mg/dL Phosphorus 3.2 (2.5-4.5) mg/dL Magnesium 2.8 H (1.7-2.2) mg/dL Total Bilirubin 0.5 (0.2-1.3) mg/dL AST 40 (17-59) U/L ALT 70 H (7-56) U/L Alkaline Phosphatase 116 (38-126) U/L Total Protein 6.6 (5.8-8.3) g/dL Albumin 3.1 (3.0-4.8) g/dL Globulin 3.6 gm/dL Albumin/Globulin Ratio 0.9 L (1.1-1.8) 01/19/18 01/19/18 01/19/18 Range/Units 23:40 20:39 20:13 WBC (4.5-11.0) 10^3/ul RBC (3.5-6.1) 10^6/uL Hgb (14.0-18.0) g/dL Hct (42.0-52.0) % MCV (80.0-105.0) fl MCH (25.0-35.0) pg MCHC (31.0-37.0) g/dl RDW (11.5-14.5) % Plt Count (120.0-450.0) 10^3/uL MPV (7.0-11.0) fl Sodium 149 H 151 H (132-148) mmol/L Potassium 4.2 4.0 (3.6-5.0) mmol/L Chloride 117 H 117 H (98-107) mmol/L Carbon Dioxide 25 26 (21-33) mmol/L Anion Gap 11 11 (10-20) BUN 48 H 46 H (7-21) mg/dL Creatinine 2.2 H 2.2 H (0.8-1.5) mg/dl Est GFR ( Amer) 37 37 Est GFR (Non-Af Amer) 30 30 POC Glucose (mg/dL) 245 H (65-110) mg/dL Random Glucose 284 H 264 H (70-110) mg/dL Calcium 8.9 9.0 (8.4-10.5) mg/dL Phosphorus (2.5-4.5) mg/dL Magnesium (1.7-2.2) mg/dL Total Bilirubin (0.2-1.3) mg/dL AST (17-59) U/L ALT (7-56) U/L Alkaline Phosphatase (38-126) U/L Total Protein (5.8-8.3) g/dL Albumin (3.0-4.8) g/dL Globulin gm/dL Albumin/Globulin Ratio (1.1-1.8) Laboratory Results - last 24 hr 01/19/18 01/19/18 01/19/18 20:13 20:39 23:40 WBC RBC Hgb Hct MCV MCH MCHC RDW Plt Count MPV Sodium 151 H 149 H Potassium 4.0 4.2 Chloride 117 H 117 H Carbon Dioxide 26 25 Anion Gap 11 11 BUN 46 H 48 H Creatinine 2.2 H 2.2 H Est GFR ( Amer) 37 37 Est GFR (Non-Af Amer) 30 30 POC Glucose (mg/dL) 245 H Random Glucose 264 H 284 H Calcium 9.0 8.9 Phosphorus Magnesium Total Bilirubin AST ALT Alkaline Phosphatase Total Protein Albumin Globulin Albumin/Globulin Ratio 01/20/18 01/20/18 01/20/18 06:40 06:40 06:58 WBC 12.5 H D RBC 4.20 Hgb 12.5 L Hct 39.2 L MCV 93.3 MCH 29.8 MCHC 31.9 RDW 15.5 H Plt Count 239 MPV 13.1 H Sodium 151 H Potassium 4.4 Chloride 118 H Carbon Dioxide 25 Anion Gap 11 BUN 47 H Creatinine 1.7 H Est GFR ( Amer) 50 Est GFR (Non-Af Amer) 41 POC Glucose (mg/dL) 239 H Random Glucose 256 H Calcium 8.8 Phosphorus 3.2 Magnesium 2.8 H Total Bilirubin 0.5 AST 40 ALT 70 H Alkaline Phosphatase 116 Total Protein 6.6 Albumin 3.1 Globulin 3.6 Albumin/Globulin Ratio 0.9 L 01/20/18 01/20/18 01/20/18 07:52 12:08 12:30 WBC RBC Hgb Hct MCV MCH MCHC RDW Plt Count MPV Sodium 150 H Potassium 4.3 Chloride 116 H Carbon Dioxide 26 Anion Gap 12 BUN 43 H Creatinine 1.7 H Est GFR ( Amer) 50 Est GFR (Non-Af Amer) 41 POC Glucose (mg/dL) 231 H 320 H Random Glucose 278 H Calcium 9.2 Phosphorus Magnesium Total Bilirubin AST ALT Alkaline Phosphatase Total Protein Albumin Globulin Albumin/Globulin Ratio Critical Care Progress Note - Nutrition Nutrition: Nutrition Category Date Time Status Consistent Carbohydrate [DIET] Diets 01/20/18 Breakfast Ordered Addendum Addendum: 01/20/18 17:06 ICU Attending Addendum: Patient seen and examined. Case reviewed on round with housestaff. Agree with resident note above with the following additions/exceptions: 62M with hx of CAD/CABG and HTN admitted with 3 days of abd pain likely acalculous cholecystitis s/p open subtotal cholecystectomy with cholecystostomy tube placement Surg on board for post-op management for subtotal cholecystectomy/tube. BP has been elevated, possibly from hyperNa in conjunction with underlying hypertension. anti hypertensive resumed holding off on ARB due to BOOM cardio on board managing bP meds As for hyperNa, likely from fluid loss katie-op as well as NS given with abx. Switched to D5 with abx. Sodium should not drop by more than 8-10 per 24 hours. cont d5 w, free water deficit intially was 8L. Approx 4L given yesterday, another 2-3L today. ok for transfer out of MICU Bang Moreno MD Healthcare Science Specialist
[2018-01-20] MEDS ORDERED: MEROPENEM IVPB SCH ×2 (10:00→22:00)
[2018-01-20] MEDS ORDERED: DEXTROSE 5% IVPB SCH ×2 (10:00→22:00)
[2018-01-20] MEDS ORDERED: WATER IVPB SCH ×2 (10:00→22:00)
[2018-01-20] MEDS ORDERED: Meropenem 500 MG in Sodium Chloride 0.9% 50 ML IVPB SCH (10:00)
--- NOTE | 2018-01-20 10:34 | CP.PCM.PN ---
Subjective - Date & Time of Evaluation Date of Evaluation: 01/20/18 Time of Evaluation: 10:31 - Subjective Subjective: General Surgery Progress Note for Dr. Luis This 62M was seen and examined this AM at bedside no acute events reported overnight. He is tolerating diet, passing gas and moving his bowels. Denies fevers chills chest pain or SOB. Wound well aproximated non tender none erthematous. Alberto with 120 serosanguinous output, Zahra tube with 5 cc biliosanguinous output. Objective - Vital Signs/Intake and Output Vital Signs (last 24 hours): Temp Pulse Resp BP Pulse Ox 98.1 F 70 21 100/51 L 99 01/20/18 04:00 01/20/18 06:00 01/18/18 18:00 01/19/18 21:46 01/19/18 11:01 Intake and Output: 01/20/18 01/20/18 06:59 18:59 Intake Total 4300 Output Total 1985 120 Balance 2315 -120 - Medications Medications: Current Medications Acetaminophen (Tylenol 325mg Tab) 650 mg PO Q6H PRN PRN Reason: Fever >100.4 F Last Admin: 01/18/18 05:57 Dose: 650 mg Aspirin (Ecotrin) 81 mg PO DAILY [facility] Last Admin: 01/19/18 13:00 Dose: 81 mg Carvedilol (Coreg) 12.5 mg PO BID [facility] Last Admin: 01/19/18 18:39 Dose: 12.5 mg Heparin Sodium (Porcine) (Heparin) 5,000 units SC Q8 [facility]; Protocol Last Admin: 01/20/18 06:14 Dose: 5,000 units Hydralazine HCl (Apresoline) 25 mg PO QID [facility] Last Admin: 01/19/18 21:46 Dose: 25 mg Hydromorphone HCl (Dilaudid) 0.5 mg IVP Q2H PRN PRN Reason: Pain, moderate (4-7) Last Admin: 01/20/18 04:50 Dose: 0.5 mg Dextrose (Dextrose 5% In Water 1000 Ml) 1,000 mls @ 150 mls/hr IV .Q6H40M [facility] Last Admin: 01/20/18 00:53 Dose: 150 mls/hr Meropenem 500 mg/ Dextrose 50 mls @ 100 mls/hr IVPB Q12 [facility]; Protocol Insulin Detemir (Levemir) 10 unit SC HS [facility] Last Admin: 01/19/18 21:59 Dose: 10 units Insulin Human Regular (Humulin R High) 0 units SC Q4H [facility]; Protocol Last Admin: 01/20/18 08:32 Dose: 4 unit Isosorbide Mononitrate (Imdur) 60 mg PO DAILY [facility] Losartan Potassium (Cozaar) 100 mg PO DAILY [facility] Last Admin: 01/19/18 11:31 Dose: 100 mg Ondansetron HCl (Zofran Inj) 4 mg IVP ONCE PRN PRN Reason: Nausea/Vomiting Pantoprazole Sodium (Protonix Ec Tab) 40 mg PO 0600 [facility] Last Admin: 01/20/18 06:14 Dose: 40 mg Tamsulosin HCl (Flomax) 0.4 mg PO DAILY [facility] Last Admin: 01/19/18 18:42 Dose: 0.4 mg - Labs Labs: 01/20/18 06:40 01/20/18 06:40 PT 15.2 SECONDS (9.4-12.5) H 01/16/18 05:25 INR 1.31 01/16/18 05:25 APTT 28.0 Seconds (25.1-36.5) 01/16/18 05:25 - Constitutional Appears: Non-toxic, No Acute Distress - Head Exam Head Exam: ATRAUMATIC, NORMOCEPHALIC - Eye Exam Eye Exam: EOMI - ENT Exam ENT Exam: Mucous Membranes Moist - Respiratory Exam Respiratory Exam: NORMAL BREATHING PATTERN - Cardiovascular Exam Cardiovascular Exam: +S1, +S2 - GI/Abdominal Exam GI & Abdominal Exam: Soft. absent: Firm, Guarding, Rigid, Tenderness - Neurological Exam Neurological Exam: Alert, Awake - Psychiatric Exam Psychiatric exam: Normal Affect, Normal Mood - Skin Skin Exam: Dry, Intact Assessment and Plan - Assessment and Plan (Free Text) Assessment: 62M with acalculous cholecystitis is is POD#3 s/p lap converted to open subtotal cholecystectomy with cholecystostomy tube placement. Incentive spirometer Pain control Monitor drain outputs Regular diet IVF OOB to chair Downgrade Further recs per Dr. Toby Plunktet PGY3
--- NOTE | 2018-01-20 11:41 | PN ---
DATE: 01/20/2018 CARDIOLOGY FOLLOWUP SUBJECTIVE: The patient is complaining of abdominal pain secondary to surgery; however, he is moving around the room and he is out of bed. PHYSICAL EXAMINATION: VITAL SIGNS: Blood pressure varies from 100 to 120, heart rate is in the 70s. NECK: Negative JVD. HEART: S1, S2. LUNGS: Without rales. EXTREMITIES: Without edema. LABORATORY DATA: The white count is down to 12.5, hemoglobin is 12.5. Chemistries: BUN and creatinine are 47 and 1.7. The sodium is 151, glucose of 256. IMPRESSION: 1. Status post gallbladder surgery. 2. History of coronary artery bypass surgery. 3. Good left ventricular function. 4. Coronary artery disease. 5. Hypertension. 6. Hypercholesterolemia. 7. Diabetes mellitus. PLAN: Given these findings, the patient is doing well. We will encourage him to ambulate. Currently, his blood pressure is well controlled on his present medications. Jamil Sosa MD
--- NOTE | 2018-01-20 11:58 | CP.PCM.PN ---
Subjective - Date & Time of Evaluation Date of Evaluation: 01/20/18 Time of Evaluation: 08:50 - Subjective Subjective: No fevers, not in distress, less abdominal pain, nausea is better. Moving his bowels. Objective - Vital Signs/Intake and Output Vital Signs (last 24 hours): Temp Pulse Resp BP Pulse Ox 98.9 F 70 21 100/51 L 99 01/20/18 00:00 01/20/18 02:00 01/18/18 18:00 01/19/18 21:46 01/19/18 11:01 Intake and Output: 01/19/18 01/20/18 18:59 06:59 Intake Total 2550 Output Total 1185 Balance 1365 - Medications Medications: Current Medications Acetaminophen (Tylenol 325mg Tab) 650 mg PO Q6H PRN PRN Reason: Fever >100.4 F Last Admin: 01/18/18 05:57 Dose: 650 mg Aspirin (Ecotrin) 81 mg PO DAILY [facility] Last Admin: 01/19/18 13:00 Dose: 81 mg Carvedilol (Coreg) 12.5 mg PO BID [facility] Last Admin: 01/19/18 18:39 Dose: 12.5 mg Heparin Sodium (Porcine) (Heparin) 5,000 units SC Q8 [facility]; Protocol Last Admin: 01/20/18 06:14 Dose: 5,000 units Hydralazine HCl (Apresoline) 25 mg PO QID [facility] Last Admin: 01/19/18 21:46 Dose: 25 mg Hydromorphone HCl (Dilaudid) 0.5 mg IVP Q2H PRN PRN Reason: Pain, moderate (4-7) Last Admin: 01/20/18 04:50 Dose: 0.5 mg Acetaminophen (Ofirmev) 1,000 mg in 100 mls @ 400 mls/hr IVPB Q6H PRN PRN Reason: Pain, moderate (4-7) Stop: 01/20/18 06:51 Last Admin: 01/19/18 18:46 Dose: 400 mls/hr Meropenem 500 mg/ Dextrose 100 mls @ 100 mls/hr IVPB Q8 [facility]; Protocol Last Admin: 01/20/18 06:14 Dose: 100 mls/hr Dextrose (Dextrose 5% In Water 1000 Ml) 1,000 mls @ 150 mls/hr IV .Q6H40M [facility] Last Admin: 01/20/18 00:53 Dose: 150 mls/hr Insulin Detemir (Levemir) 10 unit SC HS [facility] Last Admin: 01/19/18 21:59 Dose: 10 units Insulin Human Regular (Humulin R High) 0 units SC Q4H [facility]; Protocol Last Admin: 01/20/18 00:09 Dose: Not Given Isosorbide Mononitrate (Imdur) 60 mg PO DAILY [facility] Losartan Potassium (Cozaar) 100 mg PO DAILY [facility] Last Admin: 01/19/18 11:31 Dose: 100 mg Ondansetron HCl (Zofran Inj) 4 mg IVP ONCE PRN PRN Reason: Nausea/Vomiting Pantoprazole Sodium (Protonix Ec Tab) 40 mg PO 0600 [facility] Last Admin: 01/20/18 06:14 Dose: 40 mg Tamsulosin HCl (Flomax) 0.4 mg PO DAILY [facility] Last Admin: 01/19/18 18:42 Dose: 0.4 mg - Labs Labs: 01/19/18 05:30 01/19/18 23:40 PT 15.2 SECONDS (9.4-12.5) H 01/16/18 05:25 INR 1.31 01/16/18 05:25 APTT 28.0 Seconds (25.1-36.5) 01/16/18 05:25 - Constitutional Appears: Chronically Ill - Head Exam Head Exam: NORMAL INSPECTION - ENT Exam ENT Exam: Mucous Membranes Moist - Neck Exam Neck Exam: absent: Meningismus - Respiratory Exam Respiratory Exam: Decreased Breath Sounds - Cardiovascular Exam Cardiovascular Exam: +S1, +S2 - GI/Abdominal Exam GI & Abdominal Exam: Soft. absent: Tenderness Assessment and Plan - Assessment and Plan (Free Text) Plan: Assessment Severe sepsis with acute renal failure due to acute acalculous cholecystitis S/P subtotal cholecystectomy with cholecystostomy POD #3 obesity with BMI 37 CAD S/P CABG HTN DM colon cancer Plan continue renally-adjusted Merrem pending final cultures from the gallbladder taken during surgery (so far negative x 24 hours) - follow up further plans of Surgery will continue to monitor clinically
[2018-01-20] MEDS: Insulin Lispro 1 UNITS/0.01 ML SC SCH ×3 (12:14→22:00)
[2018-01-20 12:44] LABS: CALCIUM 9.2 mg/dL (8.4-10.5)
[2018-01-20] MEDS: DEXTROSE 5% IVPB SCH ×2 (14:54→22:49)
[2018-01-20] MEDS: WATER IVPB SCH ×2 (14:54→22:49)
[2018-01-20] MEDS: MEROPENEM IVPB SCH ×2 (14:54→22:49)
--- NOTE | 2018-01-20 16:49 | CP.PCM.PN ---
Subjective - Date & Time of Evaluation Date of Evaluation: 01/20/18 Time of Evaluation: 16:49 - Subjective Subjective: Nephrology Consultation Note: Assessment: Stable Acute Kidney Injury (N17.9) likely due to ATN multi-factorial: sepsis, contrast induced. r/o obstruction/retention sepsis Hypernatremia BPH aculcuous cholecystitis s/p open brent diabetes Mellitus (few years), hypertension (40 years) obesity CAD s/p CABG, colon CA Plan No acute need for renal replacement therapy at this time. Hypertension control with meds as ordered. Maintain hemodynamics stable. Avoid hypotension. Patient started on ARB, consider to hold if cr continue to rise. can add CCB as norvasc if needed Monitor Input/Output, daily weights and renal function with basic metabolic panel continue with hypotonic fluids, change to 0.45% soon once Na <150 as pt with hyperglycemia with D5W alone. encourage pt to drink more water check bladder scan r/o retention started on flomax 0.4 mg/day Check urine analysis, spot protein/creatinine, albumin/creatinine ratio, urine f or sodium, K and osmol. Dose meds/antibiotics for reduced GFR. Avoid fleets enema/magnesium based l axatives. Avoid nephrotoxins/NSAIDs/ iodinated contrast (unless needed emergently) Glycemic control Further work up/management as per primary team Thanks for allowing me to participate in care of your patient. Will follow patient with you. Please call if any Qs. had d/w team Dr Sheng Lundberg Office: [phone] Chief Complaint; pain abdomen Reason for consult: Acute Kidney Injury HPI: Pt is a 62 M with hx of diabetes Mellitus (few years), hypertension (40 years) obesity CAD s/p CABG, colon CA presented with complaints of pain abdomen and underwent cholecystectomy on 01/17/18. pt had sepsis, cardiac cath, BOOM and hypernatemia, HTN urgency during course hence renal consulted Denies OTC/herbal meds or NSAIDs had recent iodinated contrast exposure on 01/15 and 01/16. No obvious episodes of low BP. pt reports hx of enlarged prostate and difficulty in urination due to it ROS: Cardiovascular: No chest pain. Pulmonary: No shortness of breath Gastrointestinal: c/o abdominal soreness No nausea. No vomiting. Genitourinary: No pain while urinating. Denies blood in urine. has to strain during urination All other negative except as mentioned in HPI Physical Examination: General Appearance: Comfortable, in no acute respiratory distress, co-operative . obese Vitals reviewed and noted as below Head; Atraumatic, normocephalic ENT: no ulcers no thrush. Tongue is midline. Oropharynx: no rash or ulcers. EYES: Pupils are equal, round and reactive to light accommodation. Eye muscles and extraocular movement intact. Sclera is anicteric. Neck; supple no lymphadenopathy, no thyromegaly or bruit Lungs: Normal respiratory rate/effort. Breath sounds bilateral equal and clear Heart: Normal rate. s1s2 normal. No rub or gallop. Extremities: no edema. No varicose veins Neurological: Patient is alert, awake and oriented to person, place and time. No focal deficit. Strength bilateral appropriate and equal Skin: Warm and dry. Normal turgor. No rash. Palpitation: Normal elasticity for age Abdomen: Abdomen is soft. Bowel sounds +. There is no abdominal tenderness, no guarding/rigidity no organomegaly. exam limited due to dressings Psych: normal insight and normal affect/mood MSK: no joint tenderness or swelling. Digits and nails normal, no deformity : kidney not palpable. dullness over bladder area Labs/imaging reviewed. Past medical history, past surgical history, family history, social history, allergy reviewed and noted as below Family hx: no hx of CKD. Rest non-contributory work up: UA 1.015 no blood. trace protein imaging: enlarged prostate and fatty liver Objective - Vital Signs/Intake and Output Vital Signs (last 24 hours): Temp Pulse Resp BP Pulse Ox 98.7 F 75 6 L 111/54 L 96 01/20/18 12:00 01/20/18 11:11 01/20/18 16:07 01/20/18 16:00 01/20/18 11:00 Intake and Output: 01/20/18 01/20/18 06:59 18:59 Intake Total 4300 Output Total 1985 120 Balance 2315 -120 - Medications Medications: Current Medications Acetaminophen (Tylenol 325mg Tab) 650 mg PO Q6H PRN PRN Reason: Fever >100.4 F Last Admin: 01/18/18 05:57 Dose: 650 mg Aspirin (Ecotrin) 81 mg PO DAILY [facility] Last Admin: 01/19/18 13:00 Dose: 81 mg Carvedilol (Coreg) 12.5 mg PO BID [facility] Last Admin: 01/19/18 18:39 Dose: 12.5 mg Heparin Sodium (Porcine) (Heparin) 5,000 units SC Q8 [facility]; Protocol Last Admin: 01/20/18 14:56 Dose: 5,000 units Hydralazine HCl (Apresoline) 25 mg PO QID [facility] Last Admin: 01/19/18 21:46 Dose: 25 mg Hydromorphone HCl (Dilaudid) 0.5 mg IVP Q2H PRN PRN Reason: Pain, moderate (4-7) Last Admin: 01/20/18 04:50 Dose: 0.5 mg Dextrose (Dextrose 5% In Water 1000 Ml) 1,000 mls @ 150 mls/hr IV .Q6H40M [facility] Last Admin: 01/20/18 00:53 Dose: 150 mls/hr Meropenem 500 mg/ Dextrose 50 mls @ 100 mls/hr IVPB Q12 [facility]; Protocol Last Admin: 01/20/18 14:54 Dose: 100 mls/hr Insulin Detemir (Levemir) 10 unit SC HS [facility] Last Admin: 01/19/18 21:59 Dose: 10 units Insulin Human Lispro (Humalog) 6 units SC ACHS [facility] Last Admin: 01/20/18 12:14 Dose: 6 unit Insulin Human Regular (Humulin R High) 0 units SC Q4H [facility]; Protocol Last Admin: 01/20/18 12:12 Dose: 10 unit Isosorbide Mononitrate (Imdur) 60 mg PO DAILY [facility] Losartan Potassium (Cozaar) 100 mg PO DAILY [facility] Last Admin: 01/19/18 11:31 Dose: 100 mg Ondansetron HCl (Zofran Inj) 4 mg IVP ONCE PRN PRN Reason: Nausea/Vomiting Pantoprazole Sodium (Protonix Ec Tab) 40 mg PO 0600 [facility] Last Admin: 01/20/18 06:14 Dose: 40 mg Tamsulosin HCl (Flomax) 0.4 mg PO DAILY [facility] Last Admin: 01/19/18 18:42 Dose: 0.4 mg - Labs Labs: 01/20/18 06:40 01/20/18 12:30 PT 15.2 SECONDS (9.4-12.5) H 01/16/18 05:25 INR 1.31 01/16/18 05:25 APTT 28.0 Seconds (25.1-36.5) 01/16/18 05:25
[2018-01-20] MEDS: Sodium Chloride 0.45% 1,000 ML IV SCH (17:04)
--- NOTE | 2018-01-20 17:51 | PN ---
DATE: 01/20/2018 SUBJECTIVE: He is in the Intensive Care Unit. His is with him at bedside. He is doing better today. Dilaudid to as needed as opposed to [employer] pump. He is on Apresoline, Coreg, Cozaar, dextrose, Dilaudid, Ecotrin, Flomax, heparin, insulin, Imdur, Levemir, Merrem IV, Protonix, Tylenol, and Zofran. He is feeling better. Less problems. PHYSICAL EXAMINATION: VITAL SIGNS: He has a 98.1 temperature, 70 pulse, 100/51 blood pressure, 99% O2 sat on 30%. HEENT: His head is atraumatic, normocephalic. Oxygen on. HEART: Regular rate. LUNGS: Decreased breath sounds, for the most part, clear. ABDOMEN: Obese, mildly distended. Decreased bowel sounds, a little bit here or there. No guarding, no rebound. EXTREMITIES: Have no edema. LABORATORY DATA: He had lab tests done. He has a 12.5 white count, antibiotics are working well, it is best he has been; 12.5 hemoglobin; 39.2 hematocrit with 239 platelets. He has a 150 sodium, a little bit better; 4.3 potassium; BUN 43; creatinine 1.7; I assume it is better, GFR is 41, last blood sugar is 278, calcium is 9.2. He is being seen by Infectious Disease, Cardiology, Renal, Surgery. I will adjust his medications for his diabetes as they have been hovering in the 200s. Hopefully, he will continue to improve. I would like the white count to come down doing better, we will check his labs tomorrow. He had a right partial cholecystectomy, malignant hypertension, right upper quadrant pain, and diabetes. Steve Boucher DO MTDJoshua
[2018-01-20] MEDS: Insulin Detemir 100 units/ml Vial (Levemir) SC SCH (23:11)
[2018-01-21] MEDS: Sodium Chloride 0.45% 1,000 ML IV SCH (03:00)
[2018-01-21] MEDS: Insulin Reg-HIGH-Coverage SC SCH ×5 (03:30→21:45)
[2018-01-21] MEDS: Pantoprazole 40 mg EC Tab PO SCH (05:02)
[2018-01-21 06:39] LABS: BASO # 0.02 K/mm3 (0.0-2.0); BASO % 0.2 % (0.0-3.0); EOS # 0.5 (0.0-0.7); EOS % 3.9 % (1.5-5.0); GRAN # 8.87 (1.4-6.5); GRAN % 68.9 % (50.0-68.0); HEMOGLOBIN 10.9 g/dL (14.0-18.0); LYMPH # 2.2 (1.2-3.4); LYMPH % 17.2 % (22.0-35.0); MEAN CELL VOLUME 92.9 fl (80.0-105.0); MEAN CORPUSCULAR HEMOGLOBIN 28.6 pg (25.0-35.0); MEAN CORPUSCULAR HGB CONC 30.8 g/dl (31.0-37.0); MEAN PLATELET VOLUME 12.8 fl (7.0-11.0); MONO # 1.3 (0.1-0.6); MONO % 9.8 % (1.0-6.0); RBC 3.81 10^6/uL (3.5-6.1); RED CELL DISTRIBUTION WIDTH 15.2 % (11.5-14.5); WHITE BLOOD COUNT 12.9 10^3/ul (4.5-11.0)
[2018-01-21 06:59] LABS: ALB/GLOB RATIO 0.8 (1.1-1.8); ALBUMIN 2.6 g/dL (3.0-4.8); ALT/SGPT 67 U/L (7-56); AST/SGOT 34 U/L (17-59); BLOOD UREA NITROGEN 33 mg/dL (7-21); CALCIUM 8.7 mg/dL (8.4-10.5); GFR NON-AFRICAN AMERICAN 51
[2018-01-21] MEDS ORDERED: Insulin Detemir 100 units/ml Vial (Levemir) SC SCH (08:00)
[2018-01-21] MEDS: Insulin Lispro 1 UNITS/0.01 ML SC SCH ×4 (08:14→21:45)
--- NOTE | 2018-01-21 08:39 | PN ---
DATE: 01/21/2018 SUBJECTIVE: He is now out of the Intensive Care Unit. He is in room 366, remote tele. He has been through a lot since he has been in the hospital. [place]. He had right upper quadrant pain with very anny rocket-elevated hypertension. He went for surgery. He had a partially cholecystectomy. The gallbladder was necrotic. He has hypertension. He has been in excruciating abdominal pain, also, he is a diabetic. He is being seen by Cardiology Surgery, Infectious Disease and Renal. He is on IV fluids, hydralazine, Coreg, Cozaar, Dilaudid for pain every 2 hours, Ecotrin, Flomax, heparin, insulin, Imdur, Levemir, Merrem IV, Protonix, Tylenol, Zofran. He is eating a little bit better, more alert and did little bit of out of bed as well as 2 drains in his abdomen. PHYSICAL EXAMINATION: VITAL SIGNS: Temperature 98.4, 88 pulse, 116/58 blood pressure, 16 respiratory rate and 99% O2 sat on 2 liters nasal cannula. HEAD: Atraumatic, normocephalic. Throat is dry. NECK: Supple. HEART: Regular rate. LUNGS: Decreased breath sounds with poor inspiration. No wheezes, rhonchi or rales. ABDOMEN: Soft, obese. Positive bowel sounds, but faint. No real guarding or rebound. Mild tenderness and has 2 drains. EXTREMITIES: No edema. LABORATORY DATA: He has a 12.9 white count, still hovering high in the 12s. It was as high as 24. He has 10.9 hemoglobin, 35.4 hematocrit with 288 platelets. It dropped a bit. Sodium 148, potassium 4.2, BUN 33, creatinine 1.4, still improving with the kidneys which is great. GFR is at 51, sugar is 202, calcium is 8.7, phosphorous 2.9, magnesium 2.6, total bili is 0.4, AST is 34, ALT is 67, alk phos is 125 and total bili is 5.8. We will continue with aggressive treatment and care, physical therapy, walking, eating and hopefully get the drains out soon as we send him back to [place]. He was from the cruise ship. He is slowly starting to improve finally. Things were discussed at length with the . Steve Boucher DO
[2018-01-21] MEDS ORDERED: HYDROmorphone 1 mg/ml ISec IVP PRN (09:22)
[2018-01-21] MEDS: WATER IVPB SCH ×2 (10:17→22:06)
[2018-01-21] MEDS: MEROPENEM IVPB SCH ×2 (10:17→22:06)
[2018-01-21] MEDS: DEXTROSE 5% IVPB SCH ×2 (10:17→22:06)
--- NOTE | 2018-01-21 10:27 | CP.PCM.PN ---
Subjective - Date & Time of Evaluation Date of Evaluation: 01/21/18 Time of Evaluation: 10:24 - Subjective Subjective: General Surgery Progress Note for Dr. Luis This 62M was seen and examined this AM at bedside no acute events reported overnight. He is tolerating diet, passing gas and moving his bowels reports two episodes of diarrhea. Denies fevers chills chest pain or SOB. Wound well aproximated non tender none erthematous. Alberto with 270 serosanguinous output, Zahra tube with 20 cc biliosanguinous output. Objective - Vital Signs/Intake and Output Vital Signs (last 24 hours): Temp Pulse Resp BP Pulse Ox 98.1 F 71 20 144/76 96 01/21/18 06:00 01/21/18 06:00 01/21/18 06:00 01/21/18 06:00 01/21/18 06:00 Intake and Output: 01/21/18 01/21/18 06:59 18:59 Intake Total 1640 Output Total 70 Balance 1570 - Medications Medications: Current Medications Acetaminophen (Tylenol 325mg Tab) 650 mg PO Q6H PRN PRN Reason: Fever >100.4 F Last Admin: 01/18/18 05:57 Dose: 650 mg Aspirin (Ecotrin) 81 mg PO DAILY [facility] Last Admin: 01/19/18 13:00 Dose: 81 mg Carvedilol (Coreg) 12.5 mg PO BID [facility] Last Admin: 01/20/18 17:26 Dose: 12.5 mg Heparin Sodium (Porcine) (Heparin) 5,000 units SC Q8 [facility]; Protocol Last Admin: 01/21/18 05:02 Dose: 5,000 units Hydralazine HCl (Apresoline) 25 mg PO QID [facility] Last Admin: 01/20/18 22:51 Dose: 25 mg Meropenem 500 mg/ Dextrose 50 mls @ 100 mls/hr IVPB Q12 [facility]; Protocol Last Admin: 01/20/18 22:49 Dose: 100 mls/hr Insulin Detemir (Levemir) 12 unit SC HS [facility] Insulin Human Lispro (Humalog) 6 units SC [facility] Last Admin: 01/21/18 08:14 Dose: 6 unit Insulin Human Regular (Humulin R High) 0 units SC [facility]; Protocol Last Admin: 01/21/18 08:14 Dose: 4 unit Isosorbide Mononitrate (Imdur) 60 mg PO DAILY [facility] Losartan Potassium (Cozaar) 100 mg PO DAILY [facility] Last Admin: 01/19/18 11:31 Dose: 100 mg Ondansetron HCl (Zofran Inj) 4 mg IVP ONCE PRN PRN Reason: Nausea/Vomiting Pantoprazole Sodium (Protonix Ec Tab) 40 mg PO 0600 [facility] Last Admin: 01/21/18 05:02 Dose: 40 mg Tamsulosin HCl (Flomax) 0.4 mg PO DAILY [facility] Last Admin: 01/19/18 18:42 Dose: 0.4 mg Tramadol HCl (Ultram) 50 mg PO Q6H PRN PRN Reason: Pain, moderate (4-7) - Labs Labs: 01/21/18 06:00 01/21/18 06:00 PT 15.2 SECONDS (9.4-12.5) H 01/16/18 05:25 INR 1.31 01/16/18 05:25 APTT 28.0 Seconds (25.1-36.5) 01/16/18 05:25 - Constitutional Appears: Non-toxic, No Acute Distress - Head Exam Head Exam: ATRAUMATIC, NORMOCEPHALIC - Eye Exam Eye Exam: EOMI - ENT Exam ENT Exam: Mucous Membranes Moist - Respiratory Exam Respiratory Exam: NORMAL BREATHING PATTERN - Cardiovascular Exam Cardiovascular Exam: +S1, +S2 - GI/Abdominal Exam GI & Abdominal Exam: Soft. absent: Firm, Guarding, Rigid, Tenderness - Neurological Exam Neurological Exam: Alert, Awake - Psychiatric Exam Psychiatric exam: Normal Affect, Normal Mood - Skin Skin Exam: Dry, Intact Assessment and Plan - Assessment and Plan (Free Text) Assessment: 62M with acalculous cholecystitis is is POD#4 s/p lap converted to open subtotal cholecystectomy with cholecystostomy tube placement. Incentive spirometer D/C IV ABX Monitor drain outputs Regular diet D/C IVF Ambulate Further recs per Dr. Toby Plunkett PGY3
--- NOTE | 2018-01-21 14:04 | PN ---
DATE: 01/21/2018 SUBJECTIVE: The patient was seen earlier this morning in room 366, bed 3. His is at bedside. She says the patient is doing better. He has had no fevers. No chills. He is tolerating his medications well. Overall, improving. PHYSICAL EXAMINATION: VITAL SIGNS: Temperature is 98, blood pressure is 116/50, respiratory rate of 18. HEENT: Examination of HEENT is unremarkable. NECK: Supple. LUNGS: Have decreased breath sounds. HEART: Normal S1 and S2. ABDOMEN: Soft, nontender. No rebound or guarding. LABORATORY DATA: Laboratory examination reveals a white count of 12,900, hemoglobin of 10. Chemistries reveals a BUN of 33; creatinine of 1.4, which is improved form 1.7 and 2.2. Urinalysis is noted. Microbiology reveals the blood cultures are negative. Urine cultures are negative. Urine cultures, no growth. ASSESSMENT AND PLAN: A 62-year-old male with obesity with a body mass index of 34, who has severe sepsis, acute renal failure secondary to acute acalculous cholecystitis, status post subtotal cholecystectomy with a cholecystotomy, postoperative day #4 with coronary artery disease, hypertension and diabetes. Continue on meropenem, adjusted for the renal failure. Thus far, the cultures have been negative. Blood, urine and nares negative. Review of orders confirms the patient to be on meropenem. We will follow with you. We will also order an human immunodeficiency virus because of his age of 62. Case discussed with primary medical doctor. Сергей Mcclellan MD
--- NOTE | 2018-01-21 16:06 | CP.PCM.PN ---
Subjective - Date & Time of Evaluation Date of Evaluation: 01/21/18 Time of Evaluation: 16:05 - Subjective Subjective: Nephrology Consultation Note: Assessment: Stable Acute Kidney Injury (N17.9) likely due to ATN multi-factorial: sepsis, contrast induced. r/o obstruction/retention sepsis Hypernatremia BPH aculcuous cholecystitis s/p open brent diabetes Mellitus (few years), hypertension (40 years) obesity CAD s/p CABG, colon CA Plan No acute need for renal replacement therapy at this time. Hypertension control with meds as ordered. Maintain hemodynamics stable. Avoid hypotension. Patient started on ARB, consider to hold if cr continue to rise. Monitor Input/Output, daily weights and renal function with basic metabolic panel d/c IVF. encourage pt to drink more water check bladder scan prn r/o retention started on flomax 0.4 mg/day Check urine analysis, spot protein/creatinine, albumin/creatinine ratio, urine for sodium, K and osmol. Dose meds/antibiotics for reduced GFR. Avoid fleets enema/magnesium based laxatives. Avoid nephrotoxins/NSAIDs/ iodinated contrast (unless needed emergently) Glycemic control Further work up/management as per primary team Thanks for allowing me to participate in care of your patient. Will follow pat ient with you. Please call if any Qs. had d/w team Dr Sheng Lundberg Office: [phone] Chief Complaint; pain abdomen Reason for consult: Acute Kidney Injury HPI: Pt is a 62 M with hx of diabetes Mellitus (few years), hypertension (40 years) obesity CAD s/p CABG, colon CA presented with complaints of pain abdomen and underwent cholecystectomy on 01/17/18. pt had sepsis, cardiac cath, BOOM and hypernatemia, HTN urgency during course hence renal consulted Denies OTC/herbal meds or NSAIDs had recent iodinated contrast exposure on 01/15 and 01/16. No obvious episodes of low BP. pt reports hx of enlarged prostate and difficulty in urination due to it ROS: Cardiovascular: No chest pain. Pulmonary: No shortness of breath Gastrointestinal: no abdominal pain No nausea. No vomiting. Genitourinary: No pain while urinating. Denies blood in urine. has to strain during urination All other negative except as mentioned in HPI Physical Examination: General Appearance: Comfortable, in no acute respiratory distress, co-operative . obese Vitals reviewed and noted as below Head; Atraumatic, normocephalic ENT: no ulcers no thrush. Tongue is midline. Oropharynx: no rash or ulcers. EYES: Pupils are equal, round and reactive to light accommodation. Eye muscles and extraocular movement intact. Sclera is anicteric. Neck; supple no lymphadenopathy, no thyromegaly or bruit Lungs: Normal respiratory rate/effort. Breath sounds bilateral equal and clear Heart: Normal rate. s1s2 normal. No rub or gallop. Extremities: no edema. No varicose veins Neurological: Patient is alert, awake and oriented to person, place and time. No focal deficit. Strength bilateral appropriate and equal Skin: Warm and dry. Normal turgor. No rash. Palpitation: Normal elasticity for age Abdomen: Abdomen is soft. Bowel sounds +. There is no abdominal tenderness, no guarding/rigidity no organomegaly. exam limited due to dressings Psych: normal insight and normal affect/mood MSK: no joint tenderness or swelling. Digits and nails normal, no deformity : kidney not palpable. Labs/imaging reviewed. Past medical history, past surgical history, family history, social history, allergy reviewed and noted as below Family hx: no hx of CKD. Rest non-contributory work up: UA 1.015 no blood. trace protein imaging: enlarged prostate and fatty liver Objective - Vital Signs/Intake and Output Vital Signs (last 24 hours): Temp Pulse Resp BP Pulse Ox 98.1 F 71 20 144/76 96 01/21/18 06:00 01/21/18 10:15 01/21/18 06:00 01/21/18 10:15 01/21/18 06:00 Intake and Output: 01/21/18 01/21/18 06:59 18:59 Intake Total 1640 Output Total 70 Balance 1570 - Medications Medications: Current Medications Acetaminophen (Tylenol 325mg Tab) 650 mg PO Q6H PRN PRN Reason: Fever >100.4 F Last Admin: 01/18/18 05:57 Dose: 650 mg Aspirin (Ecotrin) 81 mg PO DAILY [facility] Last Admin: 01/21/18 10:16 Dose: 81 mg Carvedilol (Coreg) 12.5 mg PO BID [facility] Last Admin: 01/21/18 10:15 Dose: 12.5 mg Heparin Sodium (Porcine) (Heparin) 5,000 units SC Q8 [facility]; Protocol Last Admin: 01/21/18 14:15 Dose: 5,000 units Hydralazine HCl (Apresoline) 25 mg PO QID [facility] Last Admin: 01/21/18 10:14 Dose: 25 mg Meropenem 500 mg/ Dextrose 50 mls @ 100 mls/hr IVPB Q12 [facility]; Protocol Last Admin: 01/21/18 10:17 Dose: 100 mls/hr Insulin Detemir (Levemir) 12 unit SC [facility] Insulin Human Lispro (Humalog) 6 units SC [facility] Last Admin: 01/21/18 11:53 Dose: 6 unit Insulin Human Regular (Humulin R High) 0 units SC [facility]; Protocol Last Admin: 01/21/18 11:51 Dose: 4 unit Isosorbide Mononitrate (Imdur) 60 mg PO DAILY [facility] Last Admin: 01/21/18 10:17 Dose: 60 mg Losartan Potassium (Cozaar) 100 mg PO DAILY [facility] Last Admin: 01/21/18 10:15 Dose: 100 mg Ondansetron HCl (Zofran Inj) 4 mg IVP ONCE PRN PRN Reason: Nausea/Vomiting Pantoprazole Sodium (Protonix Ec Tab) 40 mg PO 0600 [facility] Last Admin: 01/21/18 05:02 Dose: 40 mg Tamsulosin HCl (Flomax) 0.4 mg PO DAILY [facility] Last Admin: 01/21/18 10:16 Dose: 0.4 mg Tramadol HCl (Ultram) 50 mg PO Q6H PRN PRN Reason: Pain, moderate (4-7) - Labs Labs: 01/21/18 06:00 01/21/18 06:00 PT 15.2 SECONDS (9.4-12.5) H 01/16/18 05:25 INR 1.31 01/16/18 05:25 APTT 28.0 Seconds (25.1-36.5) 01/16/18 05:25
[2018-01-21 16:38] VITALS: O2SAT 97
[2018-01-21 22:52] LABS: URINE BILIRUBIN NEGATIVE (NEGATIVE); URINE BLOOD NEGATIVE (NEGATIVE); URINE GLUCOSE (UA) NEGATIVE (NEGATIVE); URINE LEUKOCYTE ESTERASE NEGATIVE Leu/uL (NEGATIVE); URINE PROTEIN NEGATIVE mg/dL (<30 mg/dL); URINE UROBILINOGEN 0.2 E.U./dL (<1 E.U./dL)
[2018-01-21 22:55] LABS: URINE APPEARANCE CLEAR (CLEAR); URINE COLOR YELLOW (YELLOW)
[2018-01-22 04:30] LABS: BASO # 0.01 K/mm3 (0.0-2.0); BASO % 0.1 % (0.0-3.0); EOS # 0.4 (0.0-0.7); EOS % 2.8 % (1.5-5.0); GRAN # 8.57 (1.4-6.5); GRAN % 65.7 % (50.0-68.0); HEMOGLOBIN 11.7 g/dL (14.0-18.0); LYMPH % 22.7 % (22.0-35.0); MEAN CELL VOLUME 93.5 fl (80.0-105.0); MEAN CORPUSCULAR HEMOGLOBIN 29.3 pg (25.0-35.0); MEAN CORPUSCULAR HGB CONC 31.3 g/dl (31.0-37.0); MEAN PLATELET VOLUME 12.7 fl (7.0-11.0); MONO # 1.1 (0.1-0.6); MONO % 8.7 % (1.0-6.0); RED CELL DISTRIBUTION WIDTH 15.3 % (11.5-14.5)
[2018-01-22 04:51] LABS: ALB/GLOB RATIO 0.8 (1.1-1.8); ALT/SGPT 54 U/L (7-56); AST/SGOT 35 U/L (17-59); BLOOD UREA NITROGEN 25 mg/dL (7-21); GFR NON-AFRICAN AMERICAN 51
[2018-01-22] MEDS: Pantoprazole 40 mg EC Tab PO SCH (05:37)
[2018-01-22] MEDS: Insulin Lispro 1 UNITS/0.01 ML SC SCH ×2 (08:06→12:53)
[2018-01-22] MEDS: Insulin Reg-HIGH-Coverage SC SCH ×2 (08:06→12:54)
--- NOTE | 2018-01-22 08:23 | CP.PCM.PN ---
Subjective - Date & Time of Evaluation Date of Evaluation: 01/22/18 Time of Evaluation: 08:20 - Subjective Subjective: General Surgery - Dr. Luis PT S&E. MISA. PT doing well this morning. HE has been tolerating regular diet, oob ambulating. No fevers/chills, sob/chest pain. Alberto drain removed this morning. Objective - Vital Signs/Intake and Output Vital Signs (last 24 hours): Temp Pulse Resp BP Pulse Ox 98.5 F 71 20 128/66 97 01/21/18 16:38 01/21/18 21:44 01/21/18 16:38 01/21/18 21:44 01/21/18 16:38 Intake and Output: 01/22/18 01/22/18 06:59 18:59 Intake Total 1195 Output Total 2178 Balance -983 - Medications Medications: Current Medications Acetaminophen (Tylenol 325mg Tab) 650 mg PO Q6H PRN PRN Reason: Fever >100.4 F Last Admin: 01/18/18 05:57 Dose: 650 mg Aspirin (Ecotrin) 81 mg PO DAILY [facility] Last Admin: 01/21/18 10:16 Dose: 81 mg Carvedilol (Coreg) 12.5 mg PO BID [facility] Last Admin: 01/21/18 17:08 Dose: 12.5 mg Heparin Sodium (Porcine) (Heparin) 5,000 units SC Q8 [facility]; Protocol Last Admin: 01/22/18 05:37 Dose: 5,000 units Hydralazine HCl (Apresoline) 25 mg PO QID [facility] Last Admin: 01/21/18 21:44 Dose: 25 mg Meropenem 500 mg/ Dextrose 50 mls @ 100 mls/hr IVPB Q12 [facility]; Protocol Last Admin: 01/21/18 22:06 Dose: 100 mls/hr Insulin Detemir (Levemir) 12 unit SC HS [facility] Last Admin: 01/21/18 21:45 Dose: Not Given Insulin Human Lispro (Humalog) 6 units SC [facility] Last Admin: 01/22/18 08:06 Dose: 6 unit Insulin Human Regular (Humulin R High) 0 units SC A[facility]S [facility]; Protocol Last Admin: 01/22/18 08:06 Dose: 4 unit Isosorbide Mononitrate (Imdur) 60 mg PO DAILY [facility] Last Admin: 01/21/18 10:17 Dose: 60 mg Losartan Potassium (Cozaar) 100 mg PO DAILY [facility] Last Admin: 01/21/18 10:15 Dose: 100 mg Ondansetron HCl (Zofran Inj) 4 mg IVP ONCE PRN PRN Reason: Nausea/Vomiting Pantoprazole Sodium (Protonix Ec Tab) 40 mg PO 0600 [facility] Last Admin: 01/22/18 05:37 Dose: 40 mg Tamsulosin HCl (Flomax) 0.4 mg PO DAILY [facility] Last Admin: 01/21/18 10:16 Dose: 0.4 mg Tramadol HCl (Ultram) 50 mg PO Q6H PRN PRN Reason: Pain, moderate (4-7) - Labs Labs: 01/22/18 04:10 01/22/18 04:10 PT 15.2 SECONDS (9.4-12.5) H 01/16/18 05:25 INR 1.31 01/16/18 05:25 APTT 28.0 Seconds (25.1-36.5) 01/16/18 05:25 - Constitutional Appears: No Acute Distress - Head Exam Head Exam: ATRAUMATIC, NORMAL INSPECTION, NORMOCEPHALIC - Eye Exam Eye Exam: Normal appearance - Respiratory Exam Respiratory Exam: NORMAL BREATHING PATTERN. absent: Respiratory Distress - Cardiovascular Exam Cardiovascular Exam: REGULAR RHYTHM - GI/Abdominal Exam GI & Abdominal Exam: Soft. absent: Distended, Firm, Guarding, Rigid, Tenderness, Rebound Additional comments: cholecystostomy tube in place w/ dark bilious drainage - Neurological Exam Neurological Exam: Alert, Awake, Normal Gait, Oriented x3 - Psychiatric Exam Psychiatric exam: Normal Affect, Normal Mood - Skin Skin Exam: Dry, Intact Assessment and Plan - Assessment and Plan (Free Text) Assessment: 62M w/ acalculous cholecystitis, POD#5 s/p lap converted to open subtotal cholecystectomy with cholecystostomy tube placement -Regular diet -Alberto drain removed, Cholecystostomy tube to remain in place for 6 weeks -Clear for D/C home from surgical standpoint -Pt instructed to avoid any heavy lifting >10lbs for 6 weeks. Make an appointment with primary physician in [place] for staple removal between the dates 01/27-01/30. Follow-up with GI doctor for care of cholecystostomy tube which may be removed in approximately [address] Toby Ayala PGY4
--- NOTE | 2018-01-22 09:00 | PN ---
DATE: 01/21/2018 CARDIOLOGY FOLLOWUP SUBJECTIVE: The patient is ambulating without symptoms. PHYSICAL EXAMINATION: VITAL SIGNS: Stable. NECK: Negative JVD. LUNGS: Without rales. HEART: Revels S1, S2. EXTREMITIES: Without edema. LABORATORY DATA: Laboratories revealed the hemoglobin remained stable. The white count is on the down trend. IMPRESSION: 1. Status post gallbladder surgery. 2. History of coronary artery bypass surgery. 3. Stable angina. 4. Coronary artery disease. 5. Hypercholesterolemia. 6. Abdominal pain secondary to surgery. PLAN: Given these findings, the patient is doing well. We have encouraged the patient to continue ambulating as much as he can as well as using the incentive spirometer. From a cardiac perspective, the patient is doing well. Jamil Sosa MD
[2018-01-22] MEDS: DEXTROSE 5% IVPB SCH (09:30)
[2018-01-22] MEDS: MEROPENEM IVPB SCH (09:30)
[2018-01-22] MEDS: WATER IVPB SCH (09:30)
[2018-01-22 09:36] VITALS: RESP 18; TEMP 98.1
[2018-01-22 09:38] VITALS: BP 136/86; PULSE 62
[2018-01-22] MEDS ORDERED: Desmopressin Nasal 10 mcg/Spray (5 ml) NS SCH (13:00)
--- NOTE | 2018-01-22 15:14 | PN ---
DATE: 01/21/2018 CARDIOLOGY FOLLOWUP SUBJECTIVE: The patient is ambulating. He is eating. He is moving his bowels. No chest pain. No shortness of breath. PHYSICAL EXAMINATION VITAL SIGNS: Blood pressure is 136/86, the heart rate is in the 60s. NECK: Negative JVD. LUNGS: Without rales. HEART: Reveals S1 and S2. EXTREMITIES: Without edema. LABORATORY DATA: Hemoglobin is 11.7, the white count is 13,000. Chemistries: BUN and creatinine are unremarkable other than the sodium being 154, the glucose is 207. IMPRESSION: 1. Status post cholecystectomy. 2. Wound care. 3. History of coronary artery bypass surgery. 4. Hypertension. 5. Diabetes mellitus. 6. Hypercholesterolemia. 7. Obesity. PLAN: Given these findings, the patient's cardiac status is stable. Once his wound care issues are resolved, the patient can be discharged. He needs to travel back to [place] and follow up with his manager net and his primary care doctors. Jamil Sosa MD
--- NOTE | 2018-01-22 15:24 | CP.PCM.PN ---
Subjective - Date & Time of Evaluation Date of Evaluation: 01/22/18 Time of Evaluation: 15:23 - Subjective Subjective: Nephrology Consultation Note: Assessment: Stable Acute Kidney Injury (N17.9) likely due to ATN multi-factorial: sepsis, contrast induced. r/o obstruction/retention sepsis Hypernatremia with dilute urine with low osmol (364) ? DI BPH aculcuous cholecystitis s/p open brent diabetes Mellitus (few years), hypertension (40 years) obesity CAD s/p CABG, colon CA Plan No acute need for renal replacement therapy at this time. Hypertension control with meds as ordered. Maintain hemodynamics stable. Avoid hypotension. Patient started on ARB, consider to hold if cr continue to rise. Monitor Input/Output, daily weights and renal function with basic metabolic panel d/c IVF. encourage pt to drink more water check bladder scan prn r/o retention started on flomax 0.4 mg/day started nasal spray DDAVP 10 mcg bid x 5 days, Rx given to pt. he was advised to f/up PCP brandi to decide on it further Check urine analysis, spot protein/creatinine, albumin/creatinine ratio, urine for sodium, K and osmol. Dose meds/antibiotics for reduced GFR. Avoid fleets enema/magnesium based laxatives. Avoid nephrotoxins/NSAIDs/ iodinated contrast (unless needed emergently) Glycemic control Further work up/management as per primary team Thanks for allowing me to participate in care of your patient. Will follow patient with you. Please call if any Qs. had d/w team Dr Sheng Lundberg Office: [phone] Chief Complaint; pain abdomen Reason for consult: Acute Kidney Injury HPI: Pt is a 62 M with hx of diabetes Mellitus (few years), hypertension (40 years) obesity CAD s/p CABG, colon CA presented with complaints of pain abdomen and underwent cholecystectomy on 01/17/18. pt had sepsis, cardiac cath, BOOM and hypernatemia, HTN urgency during course hence renal consulted Denies OTC/herbal meds or NSAIDs had recent iodinated contrast exposure on 01/15 and 01/16. No obvious episodes of low BP. pt reports hx of enlarged prostate and difficulty in urination due to it ROS: Cardiovascular: No chest pain. Pulmonary: No shortness of breath Gastrointestinal: no abdominal pain No nausea. No vomiting. Genitourinary: No pain while urinating. Denies blood in urine. has to strain during urination All other negative except as mentioned in HPI Physical Examination: General Appearance: Comfortable, in no acute respiratory distress, co-operative . obese Vitals reviewed and noted as below Head; Atraumatic, normocephalic ENT: no ulcers no thrush. Tongue is midline. Oropharynx: no rash or ulcers. EYES: Pupils are equal, round and reactive to light accommodation. Eye muscles and extraocular movement intact. Sclera is anicteric. Neck; supple no lymphadenopathy, no thyromegaly or bruit Lungs: Normal respiratory rate/effort. Breath sounds bilateral equal and clear Heart: Normal rate. s1s2 normal. No rub or gallop. Extremities: no edema. No varicose veins Neurological: Patient is alert, awake and oriented to person, place and time. No focal deficit. Strength bilateral appropriate and equal Skin: Warm and dry. Normal turgor. No rash. Palpitation: Normal elasticity for age Abdomen: Abdomen is soft. Bowel sounds +. There is no abdominal tenderness, no guarding/rigidity no organomegaly. exam limited due to dressings Psych: normal insight and normal affect/mood MSK: no joint tenderness or swelling. Digits and nails normal, no deformity : kidney not palpable. Labs/imaging reviewed. Past medical history, past surgical history, family history, social history, allergy reviewed and noted as below Family hx: no hx of CKD. Rest non-contributory work up: UA 1.015 no blood. trace protein imaging: enlarged prostate and fatty liver Objective - Vital Signs/Intake and Output Vital Signs (last 24 hours): Temp Pulse Resp BP Pulse Ox 98.1 F 62 18 136/86 97 01/22/18 06:00 01/22/18 09:30 01/22/18 06:00 01/22/18 09:30 01/22/18 06:00 Intake and Output: 01/22/18 01/22/18 06:59 18:59 Intake Total 1195 Output Total 2178 Balance -983 - Labs Labs: 01/22/18 04:10 01/22/18 04:10 PT 15.2 SECONDS (9.4-12.5) H 01/16/18 05:25 INR 1.31 01/16/18 05:25 APTT 28.0 Seconds (25.1-36.5) 01/16/18 05:25
--- NOTE | 2018-01-22 21:22 | PN ---
DATE: 01/22/2018 SUBJECTIVE: The patient was seen earlier this morning in no acute distress, nontoxic. His is at bedside. He is eating and he is moving his bowels. PHYSICAL EXAMINATION: VITAL SIGNS: Temperature is 98, blood pressure is 136/80, respiratory rate of 16. HEENT: Unremarkable. NECK: Supple. LUNGS: Have decreased breath sounds. HEART: Normal S1 and S2. ABDOMEN: Soft. LABORATORY EXAMINATION: Reveals a white count of 13,000, hemoglobin of 11. Urinalysis is noted. Microbiology is reviewed. ASSESSMENT AND PLAN: A 62-year-old male who was seen earlier this morning in room 366, bed 3. His is at the bedside. is anxious about taking him home, they want to be discharged. The patient is with obesity, body mass index of 36 and severe sepsis with acute renal failure secondary to acute acalculous cholecystitis, status post subtotal cholecystectomy and cholecystotomy tube, postoperative day #5 with the patient coronary artery disease, hypertension and diabetes. The patient will go on p.o. antibiotics. Follow up PMD, Cardiology and Nephrology. The patient understands and agrees to follow up. Сергей Mcclellan MD
--- NOTE | 2018-01-23 03:49 | DS ---
HISTORY OF PRESENT ILLNESS: Yoshi Devine did much better. He is doing well. I discussed it with the Infectious Disease doctor that he can be changed over to Augmentin 875 mg twice a day. I will stop the IV antibiotics. He is feeling well. He is eating. He is walking. Also, discussed at length with his . PHYSICAL EXAMINATION: VITAL SIGNS: He has a temperature 98.1, pulse 61, blood pressure 134/85, respiratory rate 18, oxygen saturation 97% on room air. HEENT: Head atraumatic, normocephalic. HEART: Regular rate. LUNGS: Clear to auscultation. ABDOMEN: Soft, positive bowel sounds. No guarding, no rebound. There is still a drain in place. in another six weeks. EXTREMITIES: Have no edema. He is walking well. He is eating well. He is going to the bathroom well. No pain. He is much improved today. LABORATORY DATA: His white count is still 13,000, a little bit high; hemoglobin 11.7; hematocrit 37.4 with platelets 306. He has a sodium 154, a little high; potassium 4.2, BUN 25, creatinine 1.4. GFR is 51. Sugar is 199, calcium is 9, phosphorus 3.2, magnesium 2.7, total bili is 0.4. AST 35, ALT is 54. Alk phos 127, total protein 6.9. He had a urine test done on 01/20/2018, which was pretty good. His HIV was nonreactive. He is now not growing anything. MRSA was on the naris. ASSESSMENT AND PLAN: He is okayed by Surgery to be discharged. Infectious Disease to be discharged. Renal states no more renal treatment needed. Cardiology states he is doing well, ambulates. From a cardiac standpoint, he is fine. So, we will discharge him back to [place], get the followup in the next four days with a doctor out there. Take the Augmentin 875 twice a day. He needs to have blood test done by at least Friday with his primary care doctor and he should do very well, the best I have seen. Hopefully, he will continue to improve. This is a patient who had an acute gallbladder, accelerated hypertension. He had a partial cholecystectomy. Steve Boucher DO [facility] # [id number] LEFTY
--- NOTE | 2018-01-29 06:06 | OP ---
PROCEDURE DATE: 01/17/2018 SURGEON: David Luis MD. WASHCOAT WIPER: Shree Plunkett DO. DESCRIPTION OF PROCEDURE: In the operating room, the patient was identified by name, name of procedure, laterality and my miriam and the consent. After the time-out was taken where a 3-minute period was taken to allow for the evaporation of the alcohol and the chlorhexidine, the operation began, we began this with laparoscopy. A xiphoid was placed using a Veress needle and the Visiport went in nicely, xiphoid and two lateral 5s were placed. The omentum was densely adhered to the gallbladder. Dissection allowed the beginning of the dissection, but it soon proved impossible, therefore a Lamont was designed. It was converted to an open procedure quickly. A large incision was made at the ribs in a typical manner. The abdomen was entered and the Bookwalter placed. Initial dissection was relatively easy taking the gallbladder from the omentum very nicely and dissected inferiorly; however, as we went further, it was more and more difficulty and there was more and more bleeding. Some of this was surgical, but there was also a component of hematological bleeding. Eventually, we got down to the end of the presumptive infundibulum, but could proceed safely no further. The gallbladder was then attempted and taken off the liver bed from the top. It was done by dividing the line between the gallbladder and the liver very nicely and the dissection was sharp, blunt and cautery dissected down to the midportion, at which point it became impossible. Bleeding increased, so we elected to do a partial cholecystectomy. The gallbladder was opened, the contents removed. The mucosa cauterized. Balloon was placed and the amputated gallbladder fully was brought through a separate stab and into the abdomen nicely where it was inserted after the sutures were placed of 0 Vicryl. It irrigated nicely. Alberto was placed. The abdomen was copiously irrigated and dried. Bleeding was controlled with cautery and a Surgicel. The incision was closed with a running #0 PDS above and below after a posterior layer of Vicryl was placed. Incision was closed with Vicryl, followed by ambar. The patient was taken to the recovery room in good condition after the sponge and needle counts were declared correct and the umbilicus was closed with a stitch under direct vision. David Luis MD [facility] # [id number]
== END 2018-01-22 14:24 | disposition home or self-care (01) | DRG 854 ==
LOC: EDBD → ED 08:06 → OBSVTOIN 13:50 → ERH 13:50 → ICU 15:44 → ERH 16:16 → ICU 17:26 → 3RNO 01-20 18:31
PROVIDERS: ADMIT Family Medicine; ATTEND Family Medicine
PROC: 4A023N7 Measurement of Cardiac Sampling and Pressure, Left Heart, Percutaneous Approach (ICD-10-PCS; 2018-01-16)
PROC: B211YZZ Fluoroscopy of Multiple Coronary Arteries using Other Contrast (ICD-10-PCS; 2018-01-16)
PROC: B215YZZ Fluoroscopy of Left Heart using Other Contrast (ICD-10-PCS; 2018-01-16)
PROC: B212YZZ Fluoroscopy of Single Coronary Artery Bypass Graft using Other Contrast (ICD-10-PCS; 2018-01-16)
PROC: 30233R1 Transfusion of Nonautologous Platelets into Peripheral Vein, Percutaneous Approach (ICD-10-PCS; 2018-01-17)
PROC: 0FT40ZZ Resection of Gallbladder, Open Approach (ICD-10-PCS; principal; 2018-01-17 08:00)
PROC: 0F9400Z Drainage of Gallbladder with Drainage Device, Open Approach (ICD-10-PCS; 2018-01-17 08:00)
DX: A41.9 Sepsis, unspecified organism (principal); K81.0 Acute cholecystitis; E87.0 Hyperosmolality and hypernatremia; N17.9 Acute kidney failure, unspecified; R65.20 Severe sepsis without septic shock; I25.10 Atherosclerotic heart disease of native coronary artery without angina pectoris; I16.0 Hypertensive urgency; E11.9 Type 2 diabetes mellitus without complications; E78.00 Pure hypercholesterolemia, unspecified; I10 Essential (primary) hypertension; N40.0 Benign prostatic hyperplasia without lower urinary tract symptoms; E78.5 Hyperlipidemia, unspecified; R50.82 Postprocedural fever; E66.9 Obesity, unspecified; Z68.37 Body mass index [BMI] 37.0-37.9, adult; M10.9 Gout, unspecified; Z53.31 Laparoscopic surgical procedure converted to open procedure; Z85.038 Personal history of other malignant neoplasm of large intestine; Z95.1 Presence of aortocoronary bypass graft; Z95.5 Presence of coronary angioplasty implant and graft